=== PATIENT | male | born 1940 | race Caucasian/White ===

== ENCOUNTER 2020-12-10 09:31 | Outpatient (REF) | payer OTHER, SELFPAY ==
[2020-12-10 11:03] LABS: MANUAL DIFF FLAG NO
[2020-12-10 11:10] LABS: Basophils Absolute Auto 0.1 X10*3/uL (0.0-0.2); Basophils Percent Auto 0.7 % (0-2); Eosinophils Absolute Auto 0.4 X10*3/uL (0.0-0.4); Eosinophils Percent Auto 5.2 % (0-4); Hematocrit 42.2 % (42-52); Hemoglobin 13.4 g/dl (14.0-18.0); Imm Gran Abs Auto 0.04 X10*3/uL (0.00-0.03); Imm Gran Pct Auto 0.6 % (0.0-0.4); Lymphocytes Absolute Auto 1.9 X10*3/uL (1.2-4.9); Lymphocytes Percent Auto 26.7 % (20-40); Mean Corpuscular HGB Conc 31.8 g/dl (31.0-36.0); Mean Corpuscular Hemoglobin 31.2 pg (27.0-33.0); Mean Corpuscular Volume 98.4 fL (80-98); Mean Platelet Volume 9.9 fL (9.4-12.4); Monocytes Absolute Auto 0.5 X10*3/uL (0.1-1.2); Monocytes Percent Auto 6.6 % (2-11); Neutrophils Absolute Auto 4.2 X10*3/uL (2.0-8.3); Neutrophils Percent Auto 60.2 % (45-73); Platelet Count 286 X10*3/uL (160-400); Red Blood Count 4.29 X10*6/uL (4.60-5.80); Red Cell Distribution Width 13.8 % (11.0-16.0); White Blood Count 6.9 X10*3/uL (4.8-10.8)
[2020-12-10 11:36] LABS: Alanine Aminotransferase 13 U/L (0-40); Albumin Level 4.3 g/dL (3.5-5.0); Alkaline Phosphatase 121 U/L (39-117); Anion Gap 14 (12-20); Aspartate Amino Transferase 18 U/L (5-37); Bilirubin Total 0.6 mg/dL (0.0-1.0); Blood Urea Nitrogen 13 mg/dL (9-16); Calcium 9.1 mg/dL (8.4-10.2); Carbon Dioxide 31 mmol/L (22-29); Chloride 103 mmol/L (96-108); Cholesterol 180 mg/dL; Estimated Glomerular Filt Rate 56; Glucose Random 83 mg/dL (60-115); HDL Cholesterol 49 mg/dL; LDL Cholesterol Calculated 109 mg/dl; Potassium 4.5 mmol/L (3.3-5.1); Sodium 143 mmol/L (135-145); Total Protein 7.3 g/dL (6.5-8.0); Triglycerides 110 mg/dL
[2020-12-10 11:56] LABS: Thyroid Stimulating Hormone 3.07 uIU/mL (0.32-4.0)
[2020-12-10 12:00] LABS: Folate 6.7 ng/mL (> or = 4.0); Vitamin B12 362 pg/mL (200-900)
== END 2020-12-10 09:32 | disposition home or self-care (01) ==
LOC: HO.HMGCLDS 09:31
PROVIDERS: PCP Internal Medicine; Visit Provider Internal Medicine
DX: D51.3 Other dietary vitamin B12 deficiency anemia (principal); I10 Essential (primary) hypertension; E78.00 Pure hypercholesterolemia, unspecified
CPT/HCPCS: 36415; 80053; 80061; 82607; 82746; 84443; 85025

== ENCOUNTER 2022-01-29 13:37 | Outpatient (REF) | payer OTHER, SELFPAY ==
[2022-01-29 16:27] LABS: MANUAL DIFF FLAG NO
[2022-01-29 16:43] LABS: Basophils Absolute Auto 0.1 X10*3/uL (0.0-0.2); Basophils Percent Auto 0.7 % (0-2); Eosinophils Absolute Auto 0.2 X10*3/uL (0.0-0.4); Hematocrit 40.2 % (42.0-52.0); Hemoglobin 12.5 g/dl (14.0-18.0); Imm Gran Abs Auto 0.05 X10*3/uL (0.00-0.03); Imm Gran Pct Auto 0.7 % (0.0-0.4); Lymphocytes Absolute Auto 1.3 X10*3/uL (1.2-4.9); Lymphocytes Percent Auto 17.4 % (20-40); Mean Corpuscular HGB Conc 31.1 g/dl (31.0-36.0); Mean Corpuscular Hemoglobin 29.9 pg (27.0-33.0); Mean Corpuscular Volume 96.2 fL (80.0-98.0); Mean Platelet Volume 9.4 fL (9.4-12.4); Monocytes Absolute Auto 0.6 X10*3/uL (0.1-1.2); Monocytes Percent Auto 8.4 % (2-11); Neutrophils Absolute Auto 5.3 x10*3/uL (2.0-8.3); Neutrophils Percent Auto 70.8 % (45-73); Platelet Count 292 X10*3/uL (160-400); Red Blood Count 4.18 X10*6/uL (4.60-5.80); Red Cell Distribution Width 14.1 % (11.0-16.0); Retic HGB Equivalent 35.1 pg (30.0-35.0); Reticulocyte Percent 1.5 % (0.5-1.8); Reticulocytes Absolute 0.062 X10*6/uL (0.026-0.095); White Blood Count 7.5 X10*3/uL (4.8-10.8)
[2022-01-29 17:07] LABS: Alanine Aminotransferase 12 U/L (0-40); Albumin Level 4.3 g/dL (3.5-5.0); Alkaline Phosphatase 122 U/L (39-117); Anion Gap 17 (12-20); Aspartate Amino Transferase 17 U/L (5-37); Bilirubin Total 0.4 mg/dL (0.0-1.0); Blood Urea Nitrogen 17 mg/dL (9-16); Calcium 9.1 mg/dL (8.4-10.2); Carbon Dioxide 25 mmol/L (22-29); Chloride 102 mmol/L (96-108); Cholesterol 168 mg/dL; Estimated Glomerular Filt Rate 45; Glucose Random 68 mg/dL (60-115); HDL Cholesterol 46 mg/dL; Iron 65 mcg/dL (45-160); LDL Cholesterol Calculated 97 mg/dl; Percent Iron Saturation 22 % (15-50); Potassium 4.4 mmol/L (3.3-5.1); Sodium 140 mmol/L (135-145); Total Iron Binding Capacity 299 mcg/dL (228-428); Total Protein 7.2 g/dL (6.5-8.0); Triglycerides 126 mg/dL; Unsaturated Iron Binding 234 ug/dL
[2022-01-29 17:28] LABS: Ferritin 50 ng/mL (20-250); Free T4 (Free Thyroxine) 0.98 ng/dL (0.71-1.85); Thyroid Stimulating Hormone 3.34 uIU/mL (0.32-4.0)
[2022-01-29 17:34] LABS: Folate 13.1 ng/mL (> or = 4.0); Vitamin B12 428 pg/mL (200-900)
== END 2022-01-29 13:38 | disposition home or self-care (01) ==
LOC: HO.HMGCLDS 13:37
PROVIDERS: PCP Internal Medicine; Visit Provider Internal Medicine
DX: D51.3 Other dietary vitamin B12 deficiency anemia (principal); E78.00 Pure hypercholesterolemia, unspecified
CPT/HCPCS: 36415; 80053; 80061; 82607; 82728; 82746; 83540; 84439; 84443; 85025; 85045

== ENCOUNTER 2022-02-03 12:26 | Outpatient (RCR) | payer OTHER, SELFPAY ==
--- NOTE | ~2022-02-03 | XR_ITS ---
EXAMINATION: XR FOOT, RIGHT CLINICAL INFORMATION: Nonhealing wound at the 5th metatarsal head. Question osteomyelitis. COMPARISON: None TECHNIQUE: AP, lateral, and oblique views of the right foot. FINDINGS: Soft tissue wound and swelling overlying the lateral aspect of the 5th metatarsal head, consistent with cellulitis. There is adjacent osseous erosion at the lateral aspect of the 5th metatarsal head measuring up to 5 cm in AP dimension and concerning for acute osteomyelitis. No acute fracture or dislocation. Joint space narrowing with marginal osteophytes throughout the dorsal midfoot. Tiny plantar and dorsal calcaneal spurs. XR/XR foot RT min 3V IMPRESSION: Soft tissue wound and swelling overlying the 5th metatarsal head consistent with cellulitis. Underlying osseous erosion at the lateral aspect of the 5th metatarsal head consistent with acute osteomyelitis.
[2022-02-03 15:53] LABS: C Reactive Protein 0.34 mg/dL (< or = 0.50)
[2022-02-03 16:04] LABS: Erythrocyte Sedimentation Rate 54 MM/HR (0-15)
== END 2022-04-18 10:46 | disposition home or self-care (01) ==
LOC: HO.WCC 12:26
PROVIDERS: Absent Provider Surgery; PCP Internal Medicine; Visit Provider Physician Assistant
DX: L97.512 Non-pressure chronic ulcer of other part of right foot with fat layer exposed (principal); S91.302D Unspecified open wound, left foot, subsequent encounter; M86.271 Subacute osteomyelitis, right ankle and foot; D51.9 Vitamin B12 deficiency anemia, unspecified; J44.9 Chronic obstructive pulmonary disease, unspecified; F03.90 Unspecified dementia, unspecified severity, without behavioral disturbance, psychotic disturbance, mood disturbance, and anxiety; Z87.891 Personal history of nicotine dependence; Z79.2 Long term (current) use of antibiotics; Z89.421 Acquired absence of other right toe(s)
CPT/HCPCS: 11042; 11044; 36415; 73630; 84134; 85652; 86140; 87071; 87073; 87076; 87077; 87147; 87185; 87186; 87205; 88304; 88311; 99212; 99213

== ENCOUNTER 2022-02-14 09:23 | Outpatient (REF) | payer OTHER, SELFPAY ==
[2022-02-14 12:01] LABS: Anion Gap 12 (12-20); Blood Urea Nitrogen 23 mg/dL (9-16); Calcium 10.1 mg/dL (8.4-10.2); Carbon Dioxide 32 mmol/L (22-29); Chloride 102 mmol/L (96-108); Estimated Glomerular Filt Rate > 60; Glucose Random 97 mg/dL (60-115); Potassium 5.1 mmol/L (3.3-5.1); Sodium 141 mmol/L (135-145)
== END 2022-02-14 09:24 | disposition home or self-care (01) ==
LOC: HO.HMGCLDS 09:23
PROVIDERS: Visit Provider Internal Medicine
DX: N28.9 Disorder of kidney and ureter, unspecified (principal)
CPT/HCPCS: 36415; 80048

== ENCOUNTER → 2022-02-17 14:33 | Outpatient (BNVA) | payer OTHER, SELFPAY | PROVIDERS: PCP Internal Medicine; Visit Provider Internal Medicine | DX: Z13.89 Encounter for screening for other disorder (principal) ==

== ENCOUNTER 2022-03-03 16:13 | Inpatient (IN) | payer OTHER, SELFPAY ==
--- NOTE | ~2022-03-03 | XR_ITS ---
EXAMINATION: XR FOOT, RIGHT CLINICAL INFORMATION: Draining wound COMPARISON: 02/03/2022 TECHNIQUE: AP, lateral, and oblique views of the right foot. FINDINGS: Soft tissue swelling and soft tissue gas in the region of the fifth MTP joint. There is associated lucency and erosive changes in the third metatarsal head similar to the prior study. Sequela of osteomyelitis would be suspected. No underlying fracture or dislocation. Mild degenerative changes seen elsewhere. Vascular calcification noted. XR/XR foot RT min 3V IMPRESSION: Soft tissue swelling and soft tissue gas in the region of the fifth MTP joint. There is associated erosive and lucent changes to the fifth metatarsal head. In the acute setting osteomyelitis would be suspected. The appearance however is similar to the prior study.
[2022-03-03 17:04] VITALS: BP 119/89; PULSE 105; RESP 20; TEMP 36.7; O2SAT 98; BMI 25.8
[2022-03-03 18:29] LABS: MANUAL DIFF FLAG NO
[2022-03-03 18:32] LABS: Basophils Percent Auto 0.3 % (0-2); Eosinophils Absolute Auto 0.2 X10*3/uL (0.0-0.4); Eosinophils Percent Auto 1.8 % (0-4); Hematocrit 38.5 % (42.0-52.0); Hemoglobin 12.4 g/dl (14.0-18.0); Imm Gran Abs Auto 0.05 X10*3/uL (0.00-0.03); Imm Gran Pct Auto 0.5 % (0.0-0.4); Lymphocytes Absolute Auto 1.2 X10*3/uL (1.2-4.9); Mean Corpuscular HGB Conc 32.2 g/dl (31.0-36.0); Mean Corpuscular Hemoglobin 30.1 pg (27.0-33.0); Mean Corpuscular Volume 93.4 fL (80.0-98.0); Monocytes Percent Auto 9.2 % (2-11); Neutrophils Absolute Auto 8.5 x10*3/uL (2.0-8.3); Neutrophils Percent Auto 77.2 % (45-73); Platelet Count 293 X10*3/uL (160-400); Red Blood Count 4.12 X10*6/uL (4.60-5.80); Red Cell Distribution Width 13.6 % (11.0-16.0)
[2022-03-03 18:48] LABS: Anion Gap 18 (12-20); Blood Urea Nitrogen 29 mg/dL (9-16); Calcium 9.6 mg/dL (8.4-10.2); Carbon Dioxide 26 mmol/L (22-29); Chloride 101 mmol/L (96-108); Creatinine Clr Calc Pharmacy 41.8; Estimated Glomerular Filt Rate 55; Glucose Random 104 mg/dL (60-115); Potassium 5.5 mmol/L (3.3-5.1); Sodium 139 mmol/L (135-145)
--- NOTE | 2022-03-03 19:36 | ED.SKABFB ---
HPI - Skin/Abscess/Foreign Bdy General Chief complaint: Wound/Laceration Stated complaint: Open wound on right foot Time Seen by Provider: 03/03/22 19:23 Source: patient and old records reviewed Mode of arrival: ambulatory Limitations: no limitations History of Present Illness complaint: abscess/boil and lesion Onset (ago): month(s) (few) Tetanus up to date: yes Location: R foot Severity: moderate Quality: constant Relieving factors: none Exacerbating factors: palpation Context: other (chronic foot ulcer [place] [facility] [place] [facility] - 02/25 MRSA S to doxy since purulence started to come out has been on doxy since then sent over from wound clinic today given redness swelling and more drainage) Associated symptoms: other (more drainage, foot is more red and swollen) Treatments prior to arrival: bandages and antibiotic Related Data Home Medications Medication Instructions Recorded Confirmed albuterol sulfate 90 mcg/actuation 2 puff INHALATION Q4H PRN 08/06/20 03/03/22 aerosol inhaler (ProAir HFA) cholecalciferol (vitamin D3) 1,250 1,250 mcg PO MO 08/06/20 03/03/22 mcg (50,000 unit) capsule loratadine 10 mg tablet 10 mg PO DAILY PRN 03/03/22 03/03/22 losartan 25 mg tablet 1 tab PO DAILY 03/03/22 03/03/22 Previous Rx's Medication Instructions Recorded budesonide-formoterol HFA 160 2 puff INHALATION Q12H #3 ea 06/06/21 mcg-4.5 mcg/actuation aerosol inhaler (Symbicort) atorvastatin 40 mg tablet 40 mg PO DAILY 90 Days #90 tab 08/13/21 tiotropium bromide 1.25 2 puff INHALATION DAILY #3 ea 08/13/21 mcg/actuation mist for inhalation (Spiriva Respimat) citalopram 10 mg tablet 10 mg PO DAILY #90 tab 11/27/21 doxycycline hyclate 100 mg capsule 100 mg PO BID 30 Days #60 cap 02/17/22 Allergies Allergy/AdvReac Type Severity Reaction Status Date / Time No Known Allergies Allergy Verified 03/03/22 15:53 Review of Systems Review of Systems: Constitutional : No Fever, No Chills ENT/Mouth : No sore throat, No Rhinorrhea Eyes: No Eye Pain, No Swelling, No Redness Cardiovascular : No Chest Pain, No SOB Respiratory : No Cough, No Sputum Gastrointestinal : No Nausea, No Vomiting, No Diarrhea, No abdominal Pain Genitourinary : No Dysuria, No Hematuria Musculoskeletal : No joint pain, No Myalgias, No Joint Swelling Skin : pos Skin Lesions, positive skin rash Neuro : No Weakness, No Numbness, No Headache Psych : No Anxiety, No Depression Heme/Lymph: No Bruising, No Bleeding,No Lymphadenopathy Endocrine : No Polyuria, No Polydipsia All other systems reviewed and are negative [facility] [place] Past Medical History Attestation statement: The following information was validated with the patient. Medical History Anemia COPD (chronic obstructive pulmonary disease) Hypercholesterolemia Hypertension Insomnia Osteomyelitis Vitamin B12 deficiency Surgical History History of cataract surgery History of open reduction and internal fixation (ORIF) procedure Family History Family History Father Cancer Mother Cancer Social History Social History Housing: Apartment Alcohol intake: never Patient Tobacco Use Status: Former Tobacco user Tobacco use type: Cigarette e-Cigarette/Vaping Use: Never Used Second Hand Smoke Exposure: No Advance Directives: No service: No Current occupational status: retired Cognitive needs: No Hearing needs: No Vision needs: No Physical Exam Vital Signs: Vital Signs: Last Vital Signs Temp 98.0 F 03/03/22 17:04 Pulse 97 03/03/22 19:44 Resp 16 03/03/22 19:44 BP 119/89 03/03/22 17:04 Pulse Ox 95 03/03/22 19:44 BMI result Body Mass Index 25.8 Appearance: Alert. Oriented X3. No acute distress. Eyes: Pupils equal, round and reactive to light. ENT: Pharynx normal. Neck: Normal inspection. Neck supple. CVS: Normal heart rate and rhythm. Pulses normal. Respiratory: No respiratory distress. Breath sounds normal. Abdomen: Soft and nontender. Skin: Skin warm and dry. Normal skin color. Normal skin turgor. Extremities: No lower extremity edema. R foot warm to touch but erythematous and swollen on dorsum of foot - 2+ DP pulse felt, R lateral aspect of foot there is s draining ulcer with yellow purulent exudate noted. Neuro: Oriented X 3. No motor deficit. No sensory deficit. MDM - Skin/Abscess/Foreign Bdy MDM Narrative Medical decision making narrative: 82 yo male with hx of chronic R foot ulcer, HTN, HLD, anxiety, osteomyelitis on doxycycline following wound culture staph and strep on 5/3 S to doxy. Foot is more red and swollen with drainage noted. Sent over from wound clinic given increase in symptoms despite oral antibiotics. Plan to obtain labs, xray and IV antibiotics. Lab Data Result diagrams: 03/03/22 18:23 03/03/22 18:23 Labs: Lab Results 03/03/22 03/03/22 03/03/22 Range/Units 18:23 18:23 20:18 WBC 11.0 H (4.8-10.8) X10*3/uL RBC 4.12 L (4.60-5.80) X10*6/uL Hgb 12.4 L (14.0-18.0) g/dl Hct 38.5 L (42.0-52.0) % MCV 93.4 (80.0-98.0) fL MCH 30.1 (27.0-33.0) pg MCHC 32.2 (31.0-36.0) g/dl RDW 13.6 (11.0-16.0) % Plt Count 293 (160-400) X10*3/uL MPV 9.0 L (9.4-12.4) fL Immature Gran % (Auto) 0.5 H (0.0-0.4) % Neut % (Auto) 77.2 H (45-73) % Lymph % (Auto) 11.0 L (20-40) % [place] % (Auto) 9.2 (2-11) % Eos % (Auto) 1.8 (0-4) % Baso % (Auto) 0.3 (0-2) % Lymph # (Auto) 1.2 (1.2-4.9) X10*3/uL [place] # (Auto) 1.0 (0.1-1.2) X10*3/uL Eos # (Auto) 0.2 (0.0-0.4) X10*3/uL Baso # (Auto) 0.0 (0.0-0.2) X10*3/uL Abs Immat Gran (auto) 0.05 H (0.00-0.03) X10*3/uL Absolute Neuts (auto) 8.5 H (2.0-8.3) x10*3/uL Absolute Nucleated RBC 0.000 (0.0-0.012) X10*3/uL Nucleated RBC % (auto) 0.0 (0.0-0.2) /100WBC Sodium 139 (135-145) mmol/L Potassium 5.5 H (3.3-5.1) mmol/L Chloride 101 (96-108) mmol/L Carbon Dioxide 26 (22-29) mmol/L Anion Gap 18 (12-20) BUN 29 H (9-16) mg/dL Creatinine 1.27 (0.5-1.4) mg/dL Estim Creat Clear Calc 41.8 Estimated GFR 55 Random Glucose 104 (60-115) mg/dL Lactic Acid 1.0 (0.5-2.0) mmol/L Calcium 9.6 (8.4-10.2) mg/dL C-Reactive Protein (< or = 0.50) mg/dL 03/03/22 Range/Units 20:18 WBC (4.8-10.8) X10*3/uL RBC (4.60-5.80) X10*6/uL Hgb (14.0-18.0) g/dl Hct (42.0-52.0) % MCV (80.0-98.0) fL MCH (27.0-33.0) pg MCHC (31.0-36.0) g/dl RDW (11.0-16.0) % Plt Count (160-400) X10*3/uL MPV (9.4-12.4) fL Immature Gran % (Auto) (0.0-0.4) % Neut % (Auto) (45-73) % Lymph % (Auto) (20-40) % [place] % (Auto) (2-11) % Eos % (Auto) (0-4) % Baso % (Auto) (0-2) % Lymph # (Auto) (1.2-4.9) X10*3/uL [place] # (Auto) (0.1-1.2) X10*3/uL Eos # (Auto) (0.0-0.4) X10*3/uL Baso # (Auto) (0.0-0.2) X10*3/uL Abs Immat Gran (auto) (0.00-0.03) X10*3/uL Absolute Neuts (auto) (2.0-8.3) x10*3/uL Absolute Nucleated RBC (0.0-0.012) X10*3/uL Nucleated RBC % (auto) (0.0-0.2) /100WBC Sodium (135-145) mmol/L Potassium (3.3-5.1) mmol/L Chloride (96-108) mmol/L Carbon Dioxide (22-29) mmol/L Anion Gap (12-20) BUN (9-16) mg/dL Creatinine (0.5-1.4) mg/dL Estim Creat Clear Calc Estimated GFR Random Glucose (60-115) mg/dL Lactic Acid (0.5-2.0) mmol/L Calcium (8.4-10.2) mg/dL C-Reactive Protein 20.19 H (< or = 0.50) mg/dL Discharge Plan Discharge Clinical Impression: Cellulitis, Foot ulcer, right, Leukocytosis, CRP elevated Patient Disposition: Admitted As Inpatient
[2022-03-03 19:44] VITALS: PULSE 97; RESP 16; O2SAT 95
[2022-03-03 19:45] VITALS: BP 133/63
--- NOTE | 2022-03-03 19:49 | PC.NURSE ---
pt referred to Er from wound clinic, has had a lateral rt foot wound on the sole of his foot measuring 0.5x0.6x0.6cm. denies pain at site, purulent drainage present. cream/ brownish- red discharge, has been treating wound at home with silver alginate. pt able to stand and pivot steadily upon entering room in wheelchair. comes with a post op shoe and wound wrapped in kerlex . at bedside
[2022-03-03] MEDS: Piperacillin Sodium/Tazobactam 3.375 GM in 0.9 % Sodium Chloride 50 ML IV (20:30)
--- NOTE | 2022-03-03 20:40 | PHA.MEDREC ---
Pharmacy Consult ? Medication Reconciliation Pharmacy has completed the medication reconciliation. Pt's at bedside, confirmed medication list.
[2022-03-03 20:47] LABS: C Reactive Protein 20.19 mg/dL (< or = 0.50)
[2022-03-03 20:51] LABS: COVID-19 Test Negative (Negative)
[2022-03-03 21:00] LABS: Erythrocyte Sedimentation Rate 86 MM/HR (0-15)
[2022-03-03] MEDS: vancomycin HCL 750 MG in 0.9 % Sodium Chloride 250 ML 265 MG IV (21:00)
[2022-03-03 21:01] VITALS: BP 121/68; PULSE 93; RESP 15; O2SAT 97
--- NOTE | 2022-03-03 22:40 | PC.NURSE ---
pt given a sandwich, su bell and crackers per request
[2022-03-03 23:15] VITALS: BP 106/53; PULSE 92; RESP 16; O2SAT 94
--- NOTE | 2022-03-03 23:30 | PC.NURSE ---
pt resting in bed watching tv, adament that he does not want to change into a bucky. pt denies any pain.
--- NOTE | 2022-03-03 23:52 | PM.IMHP ---
History of Present Illness Date of Service: 03/03/22 Chief Complaint: foot ulcer pain 82-year-old male with a past medical history of hypertension, hyperlipidemia, COPD, anemia, osteomyelitis, vitamin B12 deficiency, history of chronic foot ulcer presented to the hospital with a chief complaint of pus draining from the foot ulcer. Patient reports that he has been having this foot ulcer for many weeks; has been following with the wound clinic and was on antibiotics as outpatient. Over the past few days he noted to have pus draining; mentions he saw his 40 arteries to surgery will go to the ER for further evaluation. Patient denies any fever chills cough. Denies any chest pain or palpitations. Denies any GI symptoms. Patient reports that she has increased erythema around the ulcer site; denies any tenderness. Review of all other systems is negative except mentioned above ER course: Per ER team patient noted of was trying from the ulcer; x-ray showed findings concerning for osteomyelitis and also noted to have cast -attributed to the open ulcer; given antibiotics; admitted to the hospital for further management. [facility] Medical History Anemia COPD (chronic obstructive pulmonary disease) Hypercholesterolemia Hypertension Insomnia Osteomyelitis Vitamin B12 deficiency Family History Father Cancer Mother Cancer Surgical History History of cataract surgery History of open reduction and internal fixation (ORIF) procedure Social History Housing: Apartment Alcohol intake: never Patient Tobacco Use Status: Former Tobacco user Tobacco use type: Cigarette e-Cigarette/Vaping Use: Never Used Second Hand Smoke Exposure: No Advance Directives: No service: No Current occupational status: retired Cognitive needs: No Hearing needs: No Vision needs: No Meds Allergies Allergy/AdvReac Type Severity Reaction Status Date / Time No Known Allergies Allergy Verified 03/03/22 15:53 Active Medications: Current Medications Acetaminophen (Acetaminophen 325 Mg Tablet) 650 mg PO Q6H PRN PRN Reason: Pain, Mild (Pain Scale 1-3) Albuterol Sulfate (Albuterol Sulfate 90 Mcg 8 Gm Inhaler) 2 puff INHALE Q4H PRN PRN Reason: Shortness Of Breath Albuterol/Ipratropium (Albuterol/Iprat 2.5/0.5mg 3 Ml Ampul.Neb) 3 ml INHALE RQ4H PRN PRN Reason: Shortness of Breath/Wheezing Atorvastatin Calcium (Atorvastatin Calcium 40 Mg Tablet) 40 mg PO DAILY [facility] Enoxaparin Sodium (Enoxaparin Sodium 40 Mg/0.4 Ml Syringe) 40 mg SUBCUT Q24H [facility] Vancomycin HCl 1,000 mg/ (Sodium Chloride) 270 mls @ 270 mls/hr IV Q12H [facility] Piperacillin Sod/Tazobactam (Sod 3.375 gm/ Sodium Chloride) 50 mls @ 100 mls/hr IV Q6H [facility] Loratadine (Loratadine 10 Mg Tablet) 10 mg PO DAILY PRN PRN Reason: Allergy Symptoms Losartan Potassium (Losartan Potassium 25 Mg Tablet) 25 mg PO DAILY JED; Protocol Melatonin (Melatonin 3 Mg Tablet) 6 mg PO BEDTIME PRN PRN Reason: Insomnia Non-Formulary Medication (Budesonide-Formoterol [Symbicort]) 2 puff INHALE Q12H [facility] Non-Formulary Medication (Cholecalciferol (Vitamin D3)) 1,250 mcg PO MO [facility] Non-Formulary Medication (Citalopram) 10 mg PO DAILY [facility] Non-Formulary Medication (Tiotropium [place] [Spiriva Respimat]) 2 puff INHALE DAILY [facility] Pharmacy Consult (Consult Rx Perform Med Rec) 1 each MISCELLANE ONCE PRN PRN Reason: Consult order Pharmacy Consult (Consult Rx Vancomycin Dosing) 1 each MISCELLANE DAILY PRN PRN Reason: Consult order Senna (Sennosides 8.6 Mg Tablet) 17.2 mg PO BEDTIME PRN PRN Reason: Constipation Sodium Chloride (0.9 % Sodium Chloride Flush 3 Ml Syringe) 3 ml IVFLUSH QSHIFT [facility] Sodium Zirconium Cyclosilicate (Sodium Zirconium Cyclosilicate 10 Gm Powd.Pack) 10 gm PO ONCE ONE Stop: 03/03/22 23:50 Home Medications Medication Instructions Recorded Confirmed Last Taken Type albuterol sulfate 90 mcg/actuation 2 puff INHALATION Q4H PRN 08/06/20 03/03/22 Unknown History aerosol inhaler (ProAir HFA) cholecalciferol (vitamin D3) 1,250 1,250 mcg PO MO 08/06/20 03/03/22 02/24/22 History mcg (50,000 unit) capsule loratadine 10 mg tablet 10 mg PO DAILY PRN 03/03/22 03/03/22 Unknown History losartan 25 mg tablet 1 tab PO DAILY 03/03/22 03/03/22 03/02/22 History Physical Exam Vital Signs and Narrative: Vital Signs: Last Vital Signs Temp 98.0 F 03/03/22 17:04 Pulse 92 03/03/22 23:15 Resp 16 03/03/22 23:15 BP 106/53 L 03/03/22 23:15 Pulse Ox 94 03/03/22 23:15 BMI result Body Mass Index 25.8 Gen: Appears be in no acute distress HEENT: NCAT, Moist mucosa. Pulmonary: Vesicular breath sounds, fair air entry CVS: Normal S1-S2 Abdomen: BS+, Soft, Nontender ; Extremities: Warm well perfused; right foot plantar surface noted to have ulcer with pus draining; mild erythema surrounding. Pictures as shown below Neuro: Alert and awake. Results Labs CBC and Chem 7: 03/04/22 04:28 03/04/22 04:28 Labs: Laboratory Results - last 24 hr 03/03/22 03/03/22 03/03/22 18:23 18:23 20:18 MCV 93.4 MCH 30.1 MCHC 32.2 RDW 13.6 Plt Count 293 MPV 9.0 L Immature Gran % (Auto) 0.5 H Neut % (Auto) 77.2 H Lymph % (Auto) 11.0 L [place] % (Auto) 9.2 Eos % (Auto) 1.8 Baso % (Auto) 0.3 Lymph # (Auto) 1.2 [place] # (Auto) 1.0 Eos # (Auto) 0.2 Baso # (Auto) 0.0 Abs Immat Gran (auto) 0.05 H Absolute Neuts (auto) 8.5 H Absolute Nucleated RBC 0.000 Nucleated RBC % (auto) 0.0 ESR 86 H Anion Gap 18 Estim Creat Clear Calc 41.8 Estimated GFR 55 Random Glucose 104 Lactic Acid Calcium 9.6 C-Reactive Protein COVID-19 (ROBY) COVID-19 Clin Com 03/03/22 03/03/22 03/03/22 20:18 20:18 20:18 MCV MCH MCHC RDW Plt Count MPV Immature Gran % (Auto) Neut % (Auto) Lymph % (Auto) [place] % (Auto) Eos % (Auto) Baso % (Auto) Lymph # (Auto) [place] # (Auto) Eos # (Auto) Baso # (Auto) Abs Immat Gran (auto) Absolute Neuts (auto) Absolute Nucleated RBC Nucleated RBC % (auto) ESR Anion Gap Estim Creat Clear Calc Estimated GFR Random Glucose Lactic Acid 1.0 Calcium C-Reactive Protein 20.19 H COVID-19 (ROBY) Negative COVID-19 Clin Com See Note Imaging Radiologist's Impressions: Impressions Foot X-Ray 03/03/22 19:57 IMPRESSION: Soft tissue swelling and soft tissue gas in the region of the fifth MTP joint. There is associated erosive and lucent changes to the fifth metatarsal head. In the acute setting osteomyelitis would be suspected. The appearance however is similar to the prior study. Assessment and Plan (1) Cellulitis: Qualifiers: Laterality: right Site of cellulitis: extremity Site of cellulitis of extremity: lower extremity Qualified Code(s): L03.115 - Cellulitis of right lower limb Status: Acute Plan 82-year-old male with a past medical history of hypertension, hyperlipidemia, COPD, anemia, osteomyelitis, vitamin B12 deficiency, history of chronic foot ulcer presented to the hospital with a chief complaint of pus draining from the foot ulcer. Foot ulcer/ cellulitis/ Osteomyelitis: Continue IV vancomycin and Zosyn Id consult X-ray showed soft tissue gas and soft tissue swelling in the 5th MTP joint. Likely in the setting of open ulcer. Also noted lucent changes in the metatarsal head -suspected osteomyelitis. Will consult General surgery history of COPD: Stable History hypertension: Continue home losartan DVT prophylaxis: Lovenox Code status: Full code Quality Stroke Does the patient have a stroke diagnosis?: No VTE Prior VTE?: No VTE Risk Level:: Medical - moderate - high VTE Device Contraindication: Treatment Not Indicated VTE Drug Contraindication: N/A - Med Ordered
[2022-03-04] VITALS (8 sets, daily range): BP systolic 101–119; BP diastolic 47–58; PULSE 61–80; RESP 12–18; TEMP 35.8–36.8; O2SAT 96–100
[2022-03-04] MEDS: Melatonin 3 MG TABLET 6 MG PO (00:51)
[2022-03-04] MEDS: Enoxaparin Sodium 40 MG/0.4 ML SYRINGE SUBCUT (00:51)
[2022-03-04] MEDS: Sodium Zirconium Cyclosilicate 10 GM POWD.PACK PO (00:51)
[2022-03-04] MEDS: 0.9 % Sodium Chloride Flush 3 ML SYRINGE IVFLUSH ×2 (00:54→15:49)
--- NOTE | 2022-03-04 01:11 | PC.NURSE ---
rt foot wound cleansed with NS, 2x2 applied and covered with derrick.
[2022-03-04] MEDS: Piperacillin Sodium/Tazobactam 3.375 GM in 0.9 % Sodium Chloride 50 ML IV ×4 (02:49→19:41)
--- NOTE | 2022-03-04 02:57 | PC.NURSE ---
pt willing to change his upper half and put on a bucky, pt still refusing to remove his pants, states he has money and does not trust us with it. pt reassured we can keep it safe and count it with him, although pt still resistive/refusing to get fully changed.
[2022-03-04 05:06] LABS: MANUAL DIFF FLAG NO
[2022-03-04 05:07] LABS: Basophils Percent Auto 0.4 % (0-2); Eosinophils Absolute Auto 0.4 X10*3/uL (0.0-0.4); Eosinophils Percent Auto 4.1 % (0-4); Hematocrit 33.9 % (42.0-52.0); Hemoglobin 10.7 g/dl (14.0-18.0); Imm Gran Abs Auto 0.02 X10*3/uL (0.00-0.03); Imm Gran Pct Auto 0.2 % (0.0-0.4); Lymphocytes Absolute Auto 1.5 X10*3/uL (1.2-4.9); Lymphocytes Percent Auto 17.3 % (20-40); Mean Corpuscular HGB Conc 31.6 g/dl (31.0-36.0); Mean Corpuscular Hemoglobin 29.8 pg (27.0-33.0); Mean Corpuscular Volume 94.4 fL (80.0-98.0); Mean Platelet Volume 9.4 fL (9.4-12.4); Monocytes Percent Auto 11.8 % (2-11); Neutrophils Absolute Auto 5.7 x10*3/uL (2.0-8.3); Neutrophils Percent Auto 66.2 % (45-73); Platelet Count 279 X10*3/uL (160-400); Red Blood Count 3.59 X10*6/uL (4.60-5.80); Red Cell Distribution Width 13.8 % (11.0-16.0); White Blood Count 8.6 X10*3/uL (4.8-10.8)
[2022-03-04 05:31] LABS: Anion Gap 13 (12-20); Blood Urea Nitrogen 28 mg/dL (9-16); Carbon Dioxide 28 mmol/L (22-29); Chloride 102 mmol/L (96-108); Creatinine Clr Calc Pharmacy 46.6; Estimated Glomerular Filt Rate > 60; Glucose Random 106 mg/dL (60-115); Potassium 4.5 mmol/L (3.3-5.1); Sodium 138 mmol/L (135-145)
[2022-03-04] MEDS: vancomycin HCL 1,250 MG in 0.9 % Sodium Chloride 250 ML 166.67 MG IV (08:28)
--- NOTE | 2022-03-04 08:43 | PM.CNGS ---
History of Present Illness Consult details Consult date: 03/04/22 Narrative: 82-year-old male referred for right foot ulcer. [facility] the this ulcer on the right foot medially. He says that he has had this for months . He had been seeing some purulent drainage from the area the past few days. He therefore was sent to the emergency room. He denies any fever or chills at home. He is not a diabetic. He denies any trauma to the area in the past. Review of Systems Constitutional: Constitutional: Denies chills and Denies fever(s) Cardiovascular: Cardiovascular: Denies chest pain, Reports dyspnea and Reports dyspnea on exertion Respiratory: Respiratory: Denies cough, Reports dyspnea and Reports dyspnea on exertion Gastrointestinal: Gastrointestinal: Denies hematochezia and Denies change in bowel habits Genitourinary: Genitourinary: Denies hematuria and Denies difficulty urinating Musculoskeletal: Musculoskeletal: Denies back pain and Denies limited range of motion Neurologic: Denies focal weakness and Denies convulsions Psychiatric: Psychiatric: Denies depression and Denies mood swings PMFSH Past Medical History Medical History Anemia COPD (chronic obstructive pulmonary disease) Hypercholesterolemia Hypertension Insomnia Osteomyelitis Vitamin B12 deficiency Family History Family History Father Cancer Mother Cancer Surgical History Surgical History History of cataract surgery History of open reduction and internal fixation (ORIF) procedure Social History Social History Household Members: Spouse Housing: House Alcohol intake: never Patient Tobacco Use Status: Former Tobacco user Tobacco use type: Cigarette e-Cigarette/Vaping Use: Never Used Second Hand Smoke Exposure: No service: No Current occupational status: retired Cognitive needs: No Hearing needs: No Vision needs: No Meds Allergies Allergy/AdvReac Type Severity Reaction Status Date / Time No Known Allergies Allergy Verified 03/03/22 15:53 Active Medications: Current Medications Acetaminophen (Acetaminophen 325 Mg Tablet) 650 mg PO Q6H PRN PRN Reason: Pain, Mild (Pain Scale 1-3) Albuterol Sulfate (Albuterol Sulfate 90 Mcg 8 Gm Inhaler) 2 puff INHALE Q4H PRN PRN Reason: Shortness Of Breath Albuterol/Ipratropium (Albuterol/Iprat 2.5/0.5mg 3 Ml Ampul.Neb) 3 ml INHALE RQ4H PRN PRN Reason: Shortness of Breath/Wheezing Atorvastatin Calcium (Atorvastatin Calcium 40 Mg Tablet) 40 mg PO DAILY [facility] Enoxaparin Sodium (Enoxaparin Sodium 40 Mg/0.4 Ml Syringe) 40 mg SUBCUT Q24H [facility] Last Admin: 03/04/22 00:51 Dose: 40 mg Documented by: Escitalopram Oxalate (Escitalopram Oxalate 5 Mg Tablet) 5 mg PO DAILY [facility] Fluticasone/Vilanterol (Fluticasone/Vilanterol 200/25 Blst.W.Dev) 1 puff INHALE RDAILY [facility] Last Admin: 03/04/22 08:39 Dose: Not Given Documented by: Piperacillin Sod/Tazobactam (Sod 3.375 gm/ Sodium Chloride) 50 mls @ 100 mls/hr IV Q6H [facility] Last Admin: 03/04/22 02:49 Dose: 100 mls/hr Documented by: Vancomycin HCl 1,250 mg/ (Sodium Chloride) 250 mls @ 166.667 mls/hr IV Q24H [facility] Last Admin: 03/04/22 08:28 Dose: 166.67 mls/hr Documented by: Loratadine (Loratadine 10 Mg Tablet) 10 mg PO DAILY PRN PRN Reason: Allergy Symptoms Losartan Potassium (Losartan Potassium 25 Mg Tablet) 25 mg PO DAILY [facility]; Protocol Melatonin (Melatonin 3 Mg Tablet) 6 mg PO BEDTIME PRN PRN Reason: Insomnia Last Admin: 03/04/22 00:51 Dose: 6 mg Documented by: Non-Formulary Medication (Cholecalciferol (Vitamin D3)) 1,250 mcg PO MO [facility] Pharmacy Consult (Consult Rx Perform Med Rec) 1 each MISCELLANE ONCE PRN PRN Reason: Consult order Pharmacy Consult (Consult Rx Vancomycin Dosing) 1 each MISCELLANE DAILY PRN PRN Reason: Consult order Senna (Sennosides 8.6 Mg Tablet) 17.2 mg PO BEDTIME PRN PRN Reason: Constipation Sodium Chloride (0.9 % Sodium Chloride Flush 3 Ml Syringe) 3 ml IVFLUSH QSHIFT [facility] Last Admin: 03/04/22 00:54 Dose: 3 ml Documented by: Tiotropium [place] (Tiotropium [place] 18 Mcg Cap.W.Dev) 1 puff INHALE RDAILY [facility] Last Admin: 03/04/22 08:39 Dose: Not Given Documented by: Home Medications Medication Instructions Recorded Confirmed Last Taken Type albuterol sulfate 90 mcg/actuation 2 puff INHALATION Q4H PRN 08/06/20 03/03/22 Unknown History aerosol inhaler (ProAir HFA) cholecalciferol (vitamin D3) 1,250 1,250 mcg PO MO 08/06/20 03/03/22 02/24/22 History mcg (50,000 unit) capsule loratadine 10 mg tablet 10 mg PO DAILY PRN 03/03/22 03/03/22 Unknown History losartan 25 mg tablet 1 tab PO DAILY 03/03/22 03/03/22 03/02/22 History Physical Exam Vital Signs: Vital Signs: Last Vital Signs Temp 97.7 F 03/04/22 05:12 Pulse 63 03/04/22 07:11 Resp 12 03/04/22 07:11 BP 112/58 L 03/04/22 07:11 Pulse Ox 100 03/04/22 07:11 BMI result Body Mass Index 25.8 Const: General: comfortable and no acute distress Orientation/consciousness: patient oriented x3 Neck: Neck: Yes no lymphadenopathy Resp: Auscultation: clear to auscultation bilaterally Cardio: Rhythm: regular rhythm GI: Palpation (GI): Soft to palpation, nontender and no guarding Neuro: General: patient oriented x3 Extrem: Other: Right foot ulcer at the area of the 1st metatarsophalangeal diet, with open wound that seems to extend into the soft tissue, surrounding edema and cellulitic changes; open wound about 1 cm in diameter, no crepitus Results Labs Result diagrams: 03/05/22 07:24 03/06/22 05:33 Labs: Abnormal lab results 03/03/22 03/03/22 03/03/22 Range/Units 18:23 18:23 20:18 WBC 11.0 H (4.8-10.8) X10*3/uL RBC 4.12 L (4.60-5.80) X10*6/uL Hgb 12.4 L (14.0-18.0) g/dl Hct 38.5 L (42.0-52.0) % MPV 9.0 L (9.4-12.4) fL Immature Gran % (Auto) 0.5 H (0.0-0.4) % Neut % (Auto) 77.2 H (45-73) % Lymph % (Auto) 11.0 L (20-40) % [place] % (Auto) (2-11) % Eos % (Auto) (0-4) % Abs Immat Gran (auto) 0.05 H (0.00-0.03) X10*3/uL Absolute Neuts (auto) 8.5 H (2.0-8.3) x10*3/uL ESR 86 H (0-15) MM/HR Potassium 5.5 H (3.3-5.1) mmol/L BUN 29 H (9-16) mg/dL C-Reactive Protein (< or = 0.50) mg/dL 03/03/22 03/04/22 03/04/22 Range/Units 20:18 04:28 04:28 WBC (4.8-10.8) X10*3/uL RBC 3.59 L (4.60-5.80) X10*6/uL Hgb 10.7 L (14.0-18.0) g/dl Hct 33.9 L (42.0-52.0) % MPV (9.4-12.4) fL Immature Gran % (Auto) (0.0-0.4) % Neut % (Auto) (45-73) % Lymph % (Auto) 17.3 L (20-40) % [place] % (Auto) 11.8 H (2-11) % Eos % (Auto) 4.1 H (0-4) % Abs Immat Gran (auto) (0.00-0.03) X10*3/uL Absolute Neuts (auto) (2.0-8.3) x10*3/uL ESR (0-15) MM/HR Potassium (3.3-5.1) mmol/L BUN 28 H (9-16) mg/dL C-Reactive Protein 20.19 H (< or = 0.50) mg/dL Short CBC 03/03/22 03/04/22 Range/Units 18:23 04:28 WBC 11.0 H 8.6 (4.8-10.8) X10*3/uL Hgb 12.4 L 10.7 L (14.0-18.0) g/dl Hct 38.5 L 33.9 L (42.0-52.0) % Plt Count 293 279 (160-400) X10*3/uL BMP 03/03/22 03/04/22 18:23 04:28 Sodium 139 138 Potassium 5.5 H 4.5 Chloride 101 102 Carbon Dioxide 26 28 BUN 29 H 28 H Creatinine 1.27 1.14 Calcium 9.6 9.0 D All other labs normal. Imaging Additional studies: Laboratory Results WBC 8.6 X10*3/uL (4.8-10.8) 03/04/22 04:28 RBC 3.59 X10*6/uL (4.60-5.80) L 03/04/22 04:28 Hgb 10.7 g/dl (14.0-18.0) L 03/04/22 04:28 Hct 33.9 % (42.0-52.0) L 03/04/22 04:28 MCV 94.4 fL (80.0-98.0) 03/04/22 04:28 MCH 29.8 pg (27.0-33.0) 03/04/22 04:28 MCHC 31.6 g/dl (31.0-36.0) 03/04/22 04:28 RDW 13.8 % (11.0-16.0) 03/04/22 04:28 Plt Count 279 X10*3/uL (160-400) 03/04/22 04:28 MPV 9.4 fL (9.4-12.4) 03/04/22 04:28 Immature Gran % (Auto) 0.2 % (0.0-0.4) 03/04/22 04:28 Neut % (Auto) 66.2 % (45-73) 03/04/22 04:28 Lymph % (Auto) 17.3 % (20-40) L 03/04/22 04:28 [place]ney % (Auto) 11.8 % (2-11) H 03/04/22 04:28 Eos % (Auto) 4.1 % (0-4) H 03/04/22 04:28 Baso % (Auto) 0.4 % (0-2) 03/04/22 04:28 Lymph # (Auto) 1.5 X10*3/uL (1.2-4.9) 03/04/22 04:28 [place]ney # (Auto) 1.0 X10*3/uL (0.1-1.2) 03/04/22 04:28 Eos # (Auto) 0.4 X10*3/uL (0.0-0.4) 03/04/22 04:28 Baso # (Auto) 0.0 X10*3/uL (0.0-0.2) 03/04/22 04:28 Abs Immat Gran (auto) 0.02 X10*3/uL (0.00-0.03) 03/04/22 04:28 Absolute Neuts (auto) 5.7 x10*3/uL (2.0-8.3) 03/04/22 04:28 Absolute Nucleated RBC 0.000 X10*3/uL (0.0-0.012) 03/04/22 04:28 Nucleated RBC % (auto) 0.0 /100WBC (0.0-0.2) 03/04/22 04:28 ESR 86 MM/HR (0-15) H 03/03/22 20:18 Sodium 138 mmol/L (135-145) 03/04/22 04:28 Potassium 4.5 mmol/L (3.3-5.1) 03/04/22 04:28 Chloride 102 mmol/L (96-108) 03/04/22 04:28 Carbon Dioxide 28 mmol/L (22-29) 03/04/22 04:28 Anion Gap 13 (12-20) 03/04/22 04:28 BUN 28 mg/dL (9-16) H 03/04/22 04:28 Creatinine 1.14 mg/dL (0.5-1.4) 03/04/22 04:28 Estim Creat Clear Calc 46.6 03/04/22 04:28 Estimated GFR > 60 03/04/22 04:28 Random Glucose 106 mg/dL (60-115) 03/04/22 04:28 Lactic Acid 1.0 mmol/L (0.5-2.0) 03/03/22 20:18 Calcium 9.0 mg/dL (8.4-10.2) D 03/04/22 04:28 C-Reactive Protein 20.19 mg/dL (< or = 0.50) H 03/03/22 20:18 COVID-19 (ROBY) Negative (Negative) 03/03/22 20:18 COVID-19 Clin Com See Note 03/03/22 20:18 Impressions Foot X-Ray 03/03/22 19:57 IMPRESSION: Soft tissue swelling and soft tissue gas in the region of the fifth MTP joint. There is associated erosive and lucent changes to the fifth metatarsal head. In the acute setting osteomyelitis would be suspected. The appearance however is similar to the prior study. Assessment and Plan (1) Osteomyelitis: Status: Acute Plan He has a right foot ulcer with osteomyelitis of the distal metatarsal for the 1st big toe on x-ray. The gas seen on x-ray is secondary to the ulcer tracking deeper into the soft tissue and does not appear to represent a necrotizing process. He does not want to proceed with amputation at this time as says he is not mentally ready. He wants to continue with IV antibiotics. I will follow along while he is in the hospital for wound care. Otherwise appears to be hemodynamically stable and not septic. Procedures Date of Service Date of Service: 03/04/22
[2022-03-04] MEDS: Atorvastatin Calcium 40 MG TABLET PO (10:09)
[2022-03-04] MEDS: Losartan Potassium 25 MG TABLET PO (10:09)
[2022-03-04] MEDS: Escitalopram Oxalate 5 MG TABLET PO (10:09)
--- NOTE | 2022-03-04 10:36 | PHA.PROG ---
Admission Date/Time: March 03, 2022 23:46 Indication: Cellutilitis w/ suspect Osteomylitis Weight in k.575 kg Adjusted body weight in K.31 [place] body weight in Kg: Obesity Dosing Indication % IBW: Serum Creatinine - Last 168 Hours 03/03/22 03/04/22 18:23 04:28 Creatinine 1.27 1.14 Estimated CrCl and GFR - Last 168 Hours 03/03/22 03/04/22 18:23 04:28 Estim Creat Clear Calc 41.8 46.6 Estimated GFR 55 > 60 Vancomycin Loading Dose: N/A Current Vancomycin Dosing Regimen: 1250 mg Q24H Date and Time for next Vancomycin Level to be drawn:03/06/22 Pharmacist Comments on Vancomycin Plan: First dose given vancomycin 750 mg (10 mg/kg) in the ED, was not a optimal loading dose for patient. Will start maintenance dose vancomycin 1250 mg (17 mg/kg) Q24H in 12 hours to create a load dose for the patient. Expected AUC 522 with a trough with a 15.7 Trough to be drawn prior to 4th dose Pharmacy will monitor renal function daily Jolie Pedro, Natalya Vancomycin dosing will take advantage of [employer] as a clinical decision support tool that uses Bayesian modeling to calculate individual patient's pharmacokinetic parameters and forecast the patient's drug concentration time course with the target goal AUC 24 range of 400 - 600 mg/L/hr.
--- NOTE | 2022-03-04 10:51 | MHC.CM.PN ---
Met with patient in regards to discharge planning. Patient is hard of hearing. Patient lives with his , ambulates with a cane and had no services prior to coming to the hospital. PCP verified. Patient denies having a HCP. Information provided. Patient not interested in completing one at this time. Patient received 3 Pfizer vaccines. Patient's will transport him home when medically stable. Continue to monitor for d/c needs.
--- NOTE | 2022-03-04 11:29 | PC.NURSE ---
Wound to outer aspect of right foot dressed with a clean/dry dressing
--- NOTE | 2022-03-04 13:22 | P.PNIM_ITS ---
Subjective Subjective Date of Service: 03/04/22 Interval History: the patient was seen and evaluated this morning Laying in bed, feels comfortable with mild to no pain in his foot Denies any fever, chills or shortness of breath No reported other overnight events. Systemic review: No fever, chills or weakness No chest pain, palpitation No shortness of breath or coughing No abdominal pain, nausea or vomiting No urinary symptoms Open wound in his right foot Physical Exam Vital Signs: Vital Signs: Last Vital Signs Temp 96.5 F L 03/04/22 11:18 Pulse 61 03/04/22 11:18 Resp 18 03/04/22 11:18 BP 101/48 L 03/04/22 11:18 Pulse Ox 96 03/04/22 11:18 BMI result Body Mass Index 25.8 Const: Other: Constitutional : Alert, oriented, not in distress Neck : Normal inspection, Supple Cardiovascular : RRR, no JVP, no lower extremity edema Respiratory : fair bilateral air entry, no crackles, wheezes or rhonchi Gastrointestinal: soft, lax, Normal bowel sounds, Non tender Skin : Warm, Dry, Right 1st metatarsophalangeal ulcer with open wound with surrounding edema and cellulitis in the right foot;wound about 1x1 cm, no drainage noticed Neurological : Alert & oriented x3, No focal deficit , CN 2-12 within normal Objective Data Active Medications Acetaminophen (Acetaminophen 325 Mg Tablet) 650 mg PO Q6H PRN PRN Reason: Pain, Mild (Pain Scale 1-3) Albuterol Sulfate (Albuterol Sulfate 90 Mcg 8 Gm Inhaler) 2 puff INHALE Q4H PRN PRN Reason: Shortness Of Breath Albuterol/Ipratropium (Albuterol/Iprat 2.5/0.5mg 3 Ml Ampul.Neb) 3 ml INHALE RQ4H PRN PRN Reason: Shortness of Breath/Wheezing Atorvastatin Calcium (Atorvastatin Calcium 40 Mg Tablet) 40 mg PO DAILY [facility] Last Admin: 03/04/22 10:09 Dose: 40 mg Documented by: HUA Enoxaparin Sodium (Enoxaparin Sodium 40 Mg/0.4 Ml Syringe) 40 mg SUBCUT Q24H [facility] Last Admin: 03/04/22 00:51 Dose: 40 mg Documented by: OTONIEL Escitalopram Oxalate (Escitalopram Oxalate 5 Mg Tablet) 5 mg PO DAILY [facility] Last Admin: 03/04/22 10:09 Dose: 5 mg Documented by: HUA Fluticasone/Vilanterol (Fluticasone/Vilanterol 200/25 Blst.W.Dev) 1 puff INHALE RDAILY [facility] Last Admin: 03/04/22 08:39 Dose: Not Given Documented by: SUZANNE Non-Admin Reason: Med Not Available Piperacillin Sod/Tazobactam (Sod 3.375 gm/ Sodium Chloride) 50 mls @ 100 mls/hr IV Q6H [facility] Last Infusion: 03/04/22 11:30 Dose: 0 mls/hr Documented by: PREM Vancomycin HCl 1,250 mg/ (Sodium Chloride) 250 mls @ 166.667 mls/hr IV Q24H [facility] Last Infusion: 03/04/22 11:00 Dose: 0 mls/hr Documented by: PREM Loratadine (Loratadine 10 Mg Tablet) 10 mg PO DAILY PRN PRN Reason: Allergy Symptoms Losartan Potassium (Losartan Potassium 25 Mg Tablet) 25 mg PO DAILY [facility]; Protocol Last Admin: 03/04/22 10:09 Dose: 25 mg Documented by: HUA Melatonin (Melatonin 3 Mg Tablet) 6 mg PO BEDTIME PRN PRN Reason: Insomnia Last Admin: 03/04/22 00:51 Dose: 6 mg Documented by: OTONIEL Non-Formulary Medication (Cholecalciferol (Vitamin D3)) 1,250 mcg PO MO [facility] Pharmacy Consult (Consult Rx Perform Med Rec) 1 each MISCELLANE ONCE PRN PRN Reason: Consult order Pharmacy Consult (Consult Rx Vancomycin Dosing) 1 each MISCELLANE DAILY PRN PRN Reason: Consult order Senna (Sennosides 8.6 Mg Tablet) 17.2 mg PO BEDTIME PRN PRN Reason: Constipation Sodium Chloride (0.9 % Sodium Chloride Flush 3 Ml Syringe) 3 ml IVFLUSH QSHIFT [facility] Last Admin: 03/04/22 09:52 Dose: Not Given Documented by: HUA Non-Admin Reason: Med Not Available Tiotropium [place] (Tiotropium [place] 18 Mcg Cap.W.Dev) 1 puff INHALE RDAILY [facility] Last Admin: 03/04/22 08:39 Dose: Not Given Documented by: SUZANNE Non-Admin Reason: Med Not Available Labs CBC & Chem 7: 03/04/22 04:28 03/04/22 04:28 Labs: Laboratory Results - last 24 hr 03/03/22 03/03/22 03/03/22 18:23 18:23 20:18 MCV 93.4 MCH 30.1 MCHC 32.2 RDW 13.6 Plt Count 293 MPV 9.0 L Immature Gran % (Auto) 0.5 H Neut % (Auto) 77.2 H Lymph % (Auto) 11.0 L [place] % (Auto) 9.2 Eos % (Auto) 1.8 Baso % (Auto) 0.3 Lymph # (Auto) 1.2 [place] # (Auto) 1.0 Eos # (Auto) 0.2 Baso # (Auto) 0.0 Abs Immat Gran (auto) 0.05 H Absolute Neuts (auto) 8.5 H Absolute Nucleated RBC 0.000 Nucleated RBC % (auto) 0.0 ESR 86 H Anion Gap 18 Estim Creat Clear Calc 41.8 Estimated GFR 55 Random Glucose 104 Lactic Acid Calcium 9.6 C-Reactive Protein COVID-19 (ROBY) COVID-19 Clin Com 03/03/22 03/03/22 03/03/22 20:18 20:18 20:18 MCV MCH MCHC RDW Plt Count MPV Immature Gran % (Auto) Neut % (Auto) Lymph % (Auto) [place] % (Auto) Eos % (Auto) Baso % (Auto) Lymph # (Auto) [place] # (Auto) Eos # (Auto) Baso # (Auto) Abs Immat Gran (auto) Absolute Neuts (auto) Absolute Nucleated RBC Nucleated RBC % (auto) ESR Anion Gap Estim Creat Clear Calc Estimated GFR Random Glucose Lactic Acid 1.0 Calcium C-Reactive Protein 20.19 H COVID-19 (ROBY) Negative COVID-19 Clin Com See Note 03/04/22 03/04/22 04:28 04:28 MCV 94.4 MCH 29.8 MCHC 31.6 RDW 13.8 Plt Count 279 MPV 9.4 Immature Gran % (Auto) 0.2 Neut % (Auto) 66.2 Lymph % (Auto) 17.3 L [place] % (Auto) 11.8 H Eos % (Auto) 4.1 H Baso % (Auto) 0.4 Lymph # (Auto) 1.5 [place] # (Auto) 1.0 Eos # (Auto) 0.4 Baso # (Auto) 0.0 Abs Immat Gran (auto) 0.02 Absolute Neuts (auto) 5.7 Absolute Nucleated RBC 0.000 Nucleated RBC % (auto) 0.0 ESR Anion Gap 13 Estim Creat Clear Calc 46.6 Estimated GFR > 60 Random Glucose 106 Lactic Acid Calcium 9.0 D C-Reactive Protein COVID-19 (ROBY) COVID-19 Clin Com Assessment and Plan (1) Cellulitis: Status: Acute (2) Osteomyelitis: Status: Acute Plan 82-year-old male with a past medical history of hypertension, hyperlipidemia, COPD, anemia, osteomyelitis, vitamin B12 deficiency, history of chronic foot ulcer presented to the hospital with a chief complaint of pus draining from the foot ulcer. # Right 1st metatarsal Osteomyelitis # Right foot cellulitis Continue IV vancomycin and Zosyn Id consult pending Surgery input appreciated, patient refused amputation, continue medical treatment X-ray showed soft tissue gas which is likely in the setting of open ulcer not from necrotizing infection history of COPD: Stable History hypertension: Continue home losartan DVT prophylaxis: Lovenox Patient will need overnight hospital stay to continue treatment of osteomyelitis with IV antibiotic pending safe discharge plan on IV antibiotics. Quality Stroke Does the patient have a stroke diagnosis?: No VTE Prior VTE?: No VTE Risk Level:: Medical - moderate - high VTE Device Contraindication: Treatment Not Indicated VTE Drug Contraindication: N/A - Med Ordered
--- NOTE | 2022-03-04 13:26 | W.PM.IDCN ---
History of Present Illness Data of Consult Service Date: 03/04/22 Requesting physician: Kiki Cassidy Primary Care Provider: Harman Connolly MD HPI Reason for consult: cellulitis,foot ulcer He presents with worsening right lateral foot ulcer with exudate,drainage and discomfort. He has nondiabetic neuropathy. He has erosion lateral 5th metatarsal with osteomyelitis. I had seen him in office 02/17/2022 as referral from Wound Care and he took Doxycycline 100 mg po bid to be taken for two months. He declined IV suppressive antibiotic therapy at the time. Review of Systems Review of Systems: Yes all other systems are reviewed and are negative PMF Past Medical History Medical History Anemia COPD (chronic obstructive pulmonary disease) Hypercholesterolemia Hypertension Insomnia Osteomyelitis Vitamin B12 deficiency Family History Family History Father Cancer Mother Cancer Family history: reviewed and not pertinent Surgical History Surgical History History of cataract surgery History of open reduction and internal fixation (ORIF) procedure Social History Social History Housing: Apartment Alcohol intake: never Patient Tobacco Use Status: Former Tobacco user Tobacco use type: Cigarette e-Cigarette/Vaping Use: Never Used Second Hand Smoke Exposure: No Advance Directives: No service: No Current occupational status: retired Cognitive needs: No Hearing needs: No Vision needs: No Meds Allergies Allergy/AdvReac Type Severity Reaction Status Date / Time No Known Allergies Allergy Verified 03/03/22 15:53 Active Medications: Current Medications Acetaminophen (Acetaminophen 325 Mg Tablet) 650 mg PO Q6H PRN PRN Reason: Pain, Mild (Pain Scale 1-3) Albuterol Sulfate (Albuterol Sulfate 90 Mcg 8 Gm Inhaler) 2 puff INHALE Q4H PRN PRN Reason: Shortness Of Breath Albuterol/Ipratropium (Albuterol/Iprat 2.5/0.5mg 3 Ml Ampul.Neb) 3 ml INHALE RQ4H PRN PRN Reason: Shortness of Breath/Wheezing Atorvastatin Calcium (Atorvastatin Calcium 40 Mg Tablet) 40 mg PO DAILY [facility] Last Admin: 03/04/22 10:09 Dose: 40 mg Documented by: Enoxaparin Sodium (Enoxaparin Sodium 40 Mg/0.4 Ml Syringe) 40 mg SUBCUT Q24H [facility] Last Admin: 03/04/22 00:51 Dose: 40 mg Documented by: Escitalopram Oxalate (Escitalopram Oxalate 5 Mg Tablet) 5 mg PO DAILY [facility] Last Admin: 03/04/22 10:09 Dose: 5 mg Documented by: Fluticasone/Vilanterol (Fluticasone/Vilanterol 200/25 Blst.W.Dev) 1 puff INHALE RDAILY [facility] Last Admin: 03/04/22 08:39 Dose: Not Given Documented by: Piperacillin Sod/Tazobactam (Sod 3.375 gm/ Sodium Chloride) 50 mls @ 100 mls/hr IV Q6H [facility] Last Infusion: 03/04/22 11:30 Dose: Infused Documented by: Vancomycin HCl 1,250 mg/ (Sodium Chloride) 250 mls @ 166.667 mls/hr IV Q24H [facility] Last Infusion: 03/04/22 11:00 Dose: Infused Documented by: Loratadine (Loratadine 10 Mg Tablet) 10 mg PO DAILY PRN PRN Reason: Allergy Symptoms Losartan Potassium (Losartan Potassium 25 Mg Tablet) 25 mg PO DAILY [facility]; Protocol Last Admin: 03/04/22 10:09 Dose: 25 mg Documented by: Melatonin (Melatonin 3 Mg Tablet) 6 mg PO BEDTIME PRN PRN Reason: Insomnia Last Admin: 03/04/22 00:51 Dose: 6 mg Documented by: Non-Formulary Medication (Cholecalciferol (Vitamin D3)) 1,250 mcg PO MO [facility] Pharmacy Consult (Consult Rx Perform Med Rec) 1 each MISCELLANE ONCE PRN PRN Reason: Consult order Pharmacy Consult (Consult Rx Vancomycin Dosing) 1 each MISCELLANE DAILY PRN PRN Reason: Consult order Senna (Sennosides 8.6 Mg Tablet) 17.2 mg PO BEDTIME PRN PRN Reason: Constipation Sodium Chloride (0.9 % Sodium Chloride Flush 3 Ml Syringe) 3 ml IVFLUSH QSHIFT [facility] Last Admin: 03/04/22 09:52 Dose: Not Given Documented by: Tiotropium [place] (Tiotropium [place] 18 Mcg Cap.W.Dev) 1 puff INHALE RDAILY [facility] Last Admin: 03/04/22 08:39 Dose: Not Given Documented by: Home Medications Medication Instructions Recorded Confirmed Last Taken Type albuterol sulfate 90 mcg/actuation 2 puff INHALATION Q4H PRN 08/06/20 03/03/22 Unknown History aerosol inhaler (ProAir HFA) cholecalciferol (vitamin D3) 1,250 1,250 mcg PO MO 08/06/20 03/03/22 02/24/22 History mcg (50,000 unit) capsule loratadine 10 mg tablet 10 mg PO DAILY PRN 03/03/22 03/03/22 Unknown History losartan 25 mg tablet 1 tab PO DAILY 03/03/22 03/03/22 03/02/22 History Physical Exam Vital Signs: Vital Signs: Last Vital Signs Temp 96.5 F L 03/04/22 11:18 Pulse 61 03/04/22 11:18 Resp 18 03/04/22 11:18 BP 101/48 L 03/04/22 11:18 Pulse Ox 96 03/04/22 11:18 BMI result Body Mass Index 25.8 Const: General: cooperative HEENT: Head: Yes normal to inspection Mouth: Normal oral and palatal mucosa present Resp: Effort & Inspection: normal respiratory effort Cardio: Rate: regular rate Rhythm: regular rhythm GI: Palpation (GI): Soft to palpation and nontender Skin: General skin exam: no rashes or lesions noted Extrem: Other: open 3 cm ulcer lateral left foot with resolving cellulitis since line drawn on foot in ER Results Labs CBC & Chem 7: 03/04/22 04:28 03/04/22 04:28 Labs: Short CBC 03/03/22 03/04/22 Range/Units 18:23 04:28 WBC 11.0 H 8.6 (4.8-10.8) X10*3/uL Hgb 12.4 L 10.7 L (14.0-18.0) g/dl Hct 38.5 L 33.9 L (42.0-52.0) % Plt Count 293 279 (160-400) X10*3/uL BMP 03/03/22 03/04/22 18:23 04:28 Sodium 139 138 Potassium 5.5 H 4.5 Chloride 101 102 Carbon Dioxide 26 28 BUN 29 H 28 H Creatinine 1.27 1.14 Calcium 9.6 9.0 D Assessment and Plan (1) Osteomyelitis: Status: Acute He will agree to assisted IV antibiotic suppressive therapy at this time Plan Continue Vancomycin and Zosyn at this time. Unless organism dictates otherwise IV Vancomycin or Daptomycin outpatient six weeks likely staph /strep
--- NOTE | 2022-03-04 13:51 | P.CDIC_ITS ---
CDI Concurrent Query Documentation Clarification: PHYSICIAN'S DOCUMENTATION REQUEST Date of Query: 03/04/22 5715 Patient Name: Beck Brown Admit Date: 03/03/22 Dear Doctor, A review of the medical record indicates additional documentation may be needed. Please review below and update the documentation accordingly. Risk Factors/Clinical Indicators/Treatments On 03/03/22: potassium 5.5 Treated with Lokelma 10 gm po once 03/03/22 On 03/04/22: potassium 4.5 Based on the above, could you clarify in the Progress Notes the appropriate diagnosis, if significant, that supports the above abnormalities and additional evaluation, monitoring, and/or treatment rendered: * Based on the above, could you provide an associated diagnosis that would support the high potassium value requiring additional treatment, evaluation and monitoring * Other (please specify) * Unable to determine Use of terms such as suspected, likely, concern for, or probable (associated with a specific diagnosis that is being evaluated, monitored, or treated as if it exists) are acceptable and can be coded in the inpatient setting, when documented at the time of discharge. Thank you, Ani Sosa RN Extension: [phone] Please use your independent medical judgment in providing your response. THIS QUERY IS PART OF THE PERMANENT MEDICAL RECORD Provider Response: Other Other Diagnosis: hyperkalemia, resolved
--- NOTE | 2022-03-04 13:55 | PC.NURSE ---
Updated pt and family member of plan of care
[2022-03-05] VITALS: BP 98/53; PULSE 75; RESP 18; TEMP 37.3; O2SAT 94
[2022-03-05] MEDS: Piperacillin Sodium/Tazobactam 3.375 GM in 0.9 % Sodium Chloride 50 ML IV ×4 (02:58→20:08)
[2022-03-05] MEDS: Enoxaparin Sodium 40 MG/0.4 ML SYRINGE SUBCUT (02:59)
[2022-03-05 07:31] VITALS: BP 132/68; PULSE 78; RESP 20; TEMP 37.1; O2SAT 96
[2022-03-05 07:44] LABS: Hematocrit 30.5 % (42.0-52.0); Hemoglobin 9.7 g/dl (14.0-18.0); Mean Corpuscular HGB Conc 31.8 g/dl (31.0-36.0); Mean Corpuscular Hemoglobin 30.1 pg (27.0-33.0); Mean Corpuscular Volume 94.7 fL (80.0-98.0); Mean Platelet Volume 9.1 fL (9.4-12.4); Platelet Count 282 X10*3/uL (160-400); Red Blood Count 3.22 X10*6/uL (4.60-5.80); Red Cell Distribution Width 13.7 % (11.0-16.0); White Blood Count 8.5 X10*3/uL (4.8-10.8)
[2022-03-05] MEDS: vancomycin HCL 1,250 MG in 0.9 % Sodium Chloride 250 ML 166.67 MG IV (07:54)
[2022-03-05 07:59] LABS: Creatinine Clr Calc Pharmacy 37.4; Estimated Glomerular Filt Rate 48
[2022-03-05 08:03] LABS: Anion Gap 11 (12-20); Blood Urea Nitrogen 28 mg/dL (9-16); Calcium 8.4 mg/dL (8.4-10.2); Carbon Dioxide 29 mmol/L (22-29); Chloride 104 mmol/L (96-108); Creatinine Clr Calc Pharmacy 37.1; Estimated Glomerular Filt Rate 48; Glucose Random 112 mg/dL (60-115); Potassium 4.4 mmol/L (3.3-5.1); Sodium 140 mmol/L (135-145)
[2022-03-05] MEDS: 0.9 % Sodium Chloride Flush 3 ML SYRINGE IVFLUSH ×3 (08:03→16:00)
--- NOTE | 2022-03-05 08:17 | PM.PNGS ---
Subjective Subjective Date of Service: 03/05/22 Interval history: Says he feels much better Pain much improved on right foot No other events reported Physical Exam Vital Signs: Vital Signs: Last Vital Signs Temp 98.8 F 03/05/22 07:31 Pulse 78 03/05/22 07:31 Resp 20 03/05/22 07:31 BP 132/68 03/05/22 07:31 Pulse Ox 96 03/05/22 07:31 BMI result Body Mass Index 25.8 Const: General: comfortable and no acute distress Resp: Effort & Inspection: normal respiratory effort Cardio: Rate: regular rate GI: Palpation (GI): Soft to palpation, not firm and nontender Extrem: Other: Right foot with ulcer rectal aspect, dry, edema and redness have improved significantly Objective Data Active Medications Acetaminophen (Acetaminophen 325 Mg Tablet) 650 mg PO Q6H PRN PRN Reason: Pain, Mild (Pain Scale 1-3) Albuterol Sulfate (Albuterol Sulfate 90 Mcg 8 Gm Inhaler) 2 puff INHALE Q4H PRN PRN Reason: Shortness Of Breath Albuterol/Ipratropium (Albuterol/Iprat 2.5/0.5mg 3 Ml Ampul.Neb) 3 ml INHALE RQ4H PRN PRN Reason: Shortness of Breath/Wheezing Atorvastatin Calcium (Atorvastatin Calcium 40 Mg Tablet) 40 mg PO DAILY [facility] Last Admin: 03/04/22 10:09 Dose: 40 mg Documented by: HUA Enoxaparin Sodium (Enoxaparin Sodium 40 Mg/0.4 Ml Syringe) 40 mg SUBCUT Q24H [facility] Last Admin: 03/05/22 02:59 Dose: 40 mg Documented by: COLIN Escitalopram Oxalate (Escitalopram Oxalate 5 Mg Tablet) 5 mg PO DAILY [facility] Last Admin: 03/04/22 10:09 Dose: 5 mg Documented by: HUA Fluticasone/Vilanterol (Fluticasone/Vilanterol 200/25 Blst.W.Dev) 1 puff INHALE RDAILY [facility] Last Admin: 03/04/22 08:39 Dose: Not Given Documented by: SUZANNE Non-Admin Reason: Med Not Available Piperacillin Sod/Tazobactam (Sod 3.375 gm/ Sodium Chloride) 50 mls @ 100 mls/hr IV Q6H [facility] Last Infusion: 03/05/22 04:03 Dose: 0 mls/hr Documented by: COLIN Vancomycin HCl 1,000 mg/ (Sodium Chloride) 270 mls @ 270 mls/hr IV Q24H [facility] Loratadine (Loratadine 10 Mg Tablet) 10 mg PO DAILY PRN PRN Reason: Allergy Symptoms Losartan Potassium (Losartan Potassium 25 Mg Tablet) 25 mg PO DAILY [facility]; Protocol Last Admin: 03/04/22 10:09 Dose: 25 mg Documented by: HUA Melatonin (Melatonin 3 Mg Tablet) 6 mg PO BEDTIME PRN PRN Reason: Insomnia Last Admin: 03/04/22 00:51 Dose: 6 mg Documented by: PAPITO-COLEGumaro Non-Formulary Medication (Cholecalciferol (Vitamin D3)) 1,250 mcg PO MO [facility] Pharmacy Consult (Consult Rx Perform Med Rec) 1 each MISCELLANE ONCE PRN PRN Reason: Consult order Pharmacy Consult (Consult Rx Vancomycin Dosing) 1 each MISCELLANE DAILY PRN PRN Reason: Consult order Senna (Sennosides 8.6 Mg Tablet) 17.2 mg PO BEDTIME PRN PRN Reason: Constipation Sodium Chloride (0.9 % Sodium Chloride Flush 3 Ml Syringe) 3 ml IVFLUSH QSHIFT [facility] Last Admin: 03/05/22 08:03 Dose: 3 ml Documented by: ESTEPHANIA Tiotropium [place] (Tiotropium [place] 18 Mcg Cap.W.Dev) 1 puff INHALE RDAILY [facility] Last Admin: 03/04/22 08:39 Dose: Not Given Documented by: SUZANNE Non-Admin Reason: Med Not Available Labs CBC & Chem 7: 03/05/22 07:24 03/05/22 07:24 Labs: Laboratory Results - last 24 hr 03/05/22 03/05/22 03/05/22 07:24 07:24 07:24 MCV 94.7 MCH 30.1 MCHC 31.8 RDW 13.7 Plt Count 282 MPV 9.1 L Absolute Nucleated RBC 0.000 Nucleated RBC % (auto) 0.0 Anion Gap 11 L Estim Creat Clear Calc 37.4 37.1 Estimated GFR 48 48 Random Glucose 112 Calcium 8.4 D Microbiology Microbiology Results: Microbiology 03/03/22 20:18 Blood Culture - Preliminary Blood - Venous No growth after 24 hours. 03/03/22 20:18 Blood Culture - Preliminary Blood - Venous No growth after 24 hours. Procedures Date of Service Date of Service: 03/05/22 Progress Note: A&P Assessment and plan (1) Osteomyelitis: Status: Acute Assessment and Plan: Redness and edema have improved markedly I have changes dressings Wrapped the foot with Tra roll He wants to avoid amputation for now IV antibiotic treatment Time Spent With Patient Time: Total time spent is greater than 50% in coordination of care (as documented) at patient's floor/unit and/or counseling patient: Quality Stroke Does the patient have a stroke diagnosis?: No VTE Prior VTE?: No VTE Risk Level:: Medical - moderate - high VTE Device Contraindication: Treatment Not Indicated VTE Drug Contraindication: N/A - Med Ordered
[2022-03-05] MEDS: Escitalopram Oxalate 5 MG TABLET PO (08:24)
[2022-03-05] MEDS: Losartan Potassium 25 MG TABLET PO (08:24)
[2022-03-05] MEDS: Atorvastatin Calcium 40 MG TABLET PO (08:24)
[2022-03-05 10:26] LABS: Appearance Urine CLEAR; Color Urine YELLOW; Glucose Urine UA NEG (NEG); Leukocyte Esterase Urine NEG (NEG); Nitrite Urine NEG (NEG); PH 5.5 (5.0-8.0); Specific Gravity - Urine 1.025 (1.005-1.025); UACC Culture Trigger NO; Urine Blood TRACE (NEG); Urine Ketones NEG (NEG); Urine Protein NEG (NEG-TRACE)
[2022-03-05 10:39] LABS: Squamous Epithelial Cell Urine TRACE /LPF; WBC Urine 0-2 /HPF (0-4)
[2022-03-05 10:43] LABS: Creatinine Urine 134.97 mg/dL
[2022-03-05] MEDS: vancomycin HCL 1,000 MG in 0.9 % Sodium Chloride 250 ML 270 MG IV (11:07)
--- NOTE | 2022-03-05 11:28 | PHA.PROG ---
Addendum entered by Jolie Pedro RPh 03/05/22 11:40: Expected AUC 504 with a trough of 15.9 Original Note: Admission Date/Time: March 03, 2022 23:46 Indication: Cellutilitis w/ suspect Osteomylitis Weight in k.575 kg Adjusted body weight in K.31 [place] body weight in Kg: Obesity Dosing Indication % IBW: Serum Creatinine - Last 168 Hours 03/03/22 03/04/22 03/05/22 18:23 04:28 07:24 Creatinine 1.27 1.14 1.42 H 03/05/22 07:24 Creatinine 1.43 H Estimated CrCl and GFR - Last 168 Hours 03/03/22 03/04/22 03/05/22 18:23 04:28 07:24 Estim Creat Clear Calc 41.8 46.6 37.4 Estimated GFR 55 > 60 48 03/05/22 07:24 Estim Creat Clear Calc 37.1 Estimated GFR 48 Vancomycin Loading Dose: 750 MG + 1250 MG (12 HOURS APART) Current Vancomycin Dosing Regimen: 1250 mg Q24H Date and Time for next Vancomycin Level to be drawn:03/06 @ 0900 Pharmacist Comments on Vancomycin Plan: First dose given vancomycin 750 mg (10 mg/kg) in the ED, was not a optimal loading dose for patient. Vancomycin 1250 mg was given 12 hours later to create a load dose. Renal function has decline. 03/05 dose of vancomycin 1250 mg was start at 0754. Once SCr was noticed, YANNA Mcnamara was notified to stop infuse at 0810 and infusion was stop at 0812. Will decrease dose to 1000 mg Q24H. Since part of the 1250 mg dose was infused will wait 4 hours to start vancomycin 1000 mg. Trough to be drawn prior to 4th dose of vancomycin. It is important to evaluate the safety as patient's SCr increased rapidly Pharmacy will closely monitor renal function daily Jolie Pedro PharmD Vancomycin dosing will take advantage of [employer] as a clinical decision support tool that uses Bayesian modeling to calculate individual patient's pharmacokinetic parameters and forecast the patient's drug concentration time course with the target goal AUC 24 range of 400 - 600 mg/L/hr.
--- NOTE | 2022-03-05 11:44 | HO.PM.IMPN ---
Subjective Subjective Date of Service: 03/05/22 Interval History: the patient was seen and evaluated this morning Laying in bed, feels comfortable with no pain in his foot Denies any fever, chills or shortness of breath No reported other overnight events. Systemic review: No fever, chills or weakness No chest pain, palpitation No shortness of breath or coughing No abdominal pain, nausea or vomiting No urinary symptoms Open wound in his right foot Physical Exam Vital Signs: Vital Signs: Last Vital Signs Temp 98.8 F 03/05/22 07:31 Pulse 78 03/05/22 07:31 Resp 20 03/05/22 07:31 BP 132/68 03/05/22 07:31 Pulse Ox 96 03/05/22 07:31 BMI result Body Mass Index 25.8 Const: Other: Constitutional : Alert, oriented, not in distress Neck : Normal inspection, Supple Cardiovascular : RRR, no JVP, no lower extremity edema Respiratory : fair bilateral air entry, no crackles, wheezes or rhonchi Gastrointestinal: soft, lax, Normal bowel sounds, Non tender Skin : Warm, Dry, Right 1st metatarsophalangeal ulcer with open wound with surrounding edema and cellulitis in the right foot;wound about 1x1 cm, no drainage noticed Neurological : Alert & oriented x3, No focal deficit , CN 2-12 within normal Objective Data Active Medications Acetaminophen (Acetaminophen 325 Mg Tablet) 650 mg PO Q6H PRN PRN Reason: Pain, Mild (Pain Scale 1-3) Albuterol Sulfate (Albuterol Sulfate 90 Mcg 8 Gm Inhaler) 2 puff INHALE Q4H PRN PRN Reason: Shortness Of Breath Albuterol/Ipratropium (Albuterol/Iprat 2.5/0.5mg 3 Ml Ampul.Neb) 3 ml INHALE RQ4H PRN PRN Reason: Shortness of Breath/Wheezing Atorvastatin Calcium (Atorvastatin Calcium 40 Mg Tablet) 40 mg PO DAILY [facility] Last Admin: 03/05/22 08:24 Dose: 40 mg Documented by: ESTEPHANIA Enoxaparin Sodium (Enoxaparin Sodium 40 Mg/0.4 Ml Syringe) 40 mg SUBCUT Q24H [facility] Last Admin: 03/05/22 02:59 Dose: 40 mg Documented by: COLIN Escitalopram Oxalate (Escitalopram Oxalate 5 Mg Tablet) 5 mg PO DAILY [facility] Last Admin: 03/05/22 08:24 Dose: 5 mg Documented by: ESTEPHANIA Fluticasone/Vilanterol (Fluticasone/Vilanterol 200/25 Blst.W.Dev) 1 puff INHALE RDAILY [facility] Last Admin: 03/04/22 08:39 Dose: Not Given Documented by: SUZANNE Non-Admin Reason: Med Not Available Piperacillin Sod/Tazobactam (Sod 3.375 gm/ Sodium Chloride) 50 mls @ 100 mls/hr IV Q6H [facility] Last Infusion: 03/05/22 09:48 Dose: 0 mls/hr Documented by: ESTEPHANIA Vancomycin HCl 1,000 mg/ (Sodium Chloride) 270 mls @ 270 mls/hr IV Q24H [facility] Last Admin: 03/05/22 11:07 Dose: 270 mls/hr Documented by: ESTEPHANIA Loratadine (Loratadine 10 Mg Tablet) 10 mg PO DAILY PRN PRN Reason: Allergy Symptoms Losartan Potassium (Losartan Potassium 25 Mg Tablet) 25 mg PO DAILY [facility]; Protocol Last Admin: 03/05/22 08:24 Dose: 25 mg Documented by: ESTEPHANIA Melatonin (Melatonin 3 Mg Tablet) 6 mg PO BEDTIME PRN PRN Reason: Insomnia Last Admin: 03/04/22 00:51 Dose: 6 mg Documented by: OTONIEL Non-Formulary Medication (Cholecalciferol (Vitamin D3)) 1,250 mcg PO MO [facility] Pharmacy Consult (Consult Rx Perform Med Rec) 1 each MISCELLANE ONCE PRN PRN Reason: Consult order Pharmacy Consult (Consult Rx Vancomycin Dosing) 1 each MISCELLANE DAILY PRN PRN Reason: Consult order Senna (Sennosides 8.6 Mg Tablet) 17.2 mg PO BEDTIME PRN PRN Reason: Constipation Sodium Chloride (0.9 % Sodium Chloride Flush 3 Ml Syringe) 3 ml IVFLUSH QSHIFT [facility] Last Admin: 03/05/22 08:03 Dose: 3 ml Documented by: ESTEPHANIA Tiotropium [place] (Tiotropium [place] 18 Mcg Cap.W.Dev) 1 puff INHALE RDAILY [facility] Last Admin: 03/05/22 08:42 Dose: Not Given Documented by: SHRADDHA Non-Admin Reason: Med Not Available Labs CBC & Chem 7: 05/11/22 07:24 03/05/22 07:24 Labs: Laboratory Results - last 24 hr 03/05/22 03/05/22 03/05/22 07:24 07:24 07:24 MCV 94.7 MCH 30.1 MCHC 31.8 RDW 13.7 Plt Count 282 MPV 9.1 L Absolute Nucleated RBC 0.000 Nucleated RBC % (auto) 0.0 Anion Gap 11 L Estim Creat Clear Calc 37.4 37.1 Estimated GFR 48 48 Random Glucose 112 Calcium 8.4 D Urine Color Urine Appearance Urine pH Ur Specific [place] Urine Protein Urine Glucose (UA) Urine Ketones Urine Blood Urine Nitrite Ur Leukocyte Esterase Urine RBC Urine WBC Ur Squamous Epith Cells Urine Bacteria Ur Random Sodium Urine Creatinine 03/05/22 03/05/22 10:04 10:04 MCV MCH MCHC RDW Plt Count MPV Absolute Nucleated RBC Nucleated RBC % (auto) Anion Gap Estim Creat Clear Calc Estimated GFR Random Glucose Calcium Urine Color YELLOW Urine Appearance CLEAR Urine pH 5.5 Ur Specific [place] 1.025 Urine Protein NEG Urine Glucose (UA) NEG Urine Ketones NEG Urine Blood TRACE Urine Nitrite NEG Ur Leukocyte Esterase NEG Urine RBC 1-4 Urine WBC 0-2 Ur Squamous Epith Cells TRACE Urine Bacteria NONE Ur Random Sodium 47.0 Urine Creatinine 134.97 Microbiology Microbiology Results: Microbiology 03/03/22 20:18 Blood Culture - Preliminary Blood - Venous No growth after 24 hours. 03/03/22 20:18 Blood Culture - Preliminary Blood - Venous No growth after 24 hours. Assessment and Plan (1) Osteomyelitis: Status: Acute (2) Acute renal failure superimposed on stage 2 chronic kidney disease: Status: Acute Plan 82-year-old male with a past medical history of hypertension, hyperlipidemia, COPD, anemia, osteomyelitis, vitamin B12 deficiency, history of chronic foot ulcer presented to the hospital with a chief complaint of pus draining from the foot ulcer. # Right 1st metatarsal Osteomyelitis # Right foot cellulitis Continue IV vancomycin and Zosyn Id input appreciated, if cultures negative consider daptomycin or vancomycin for total of 6 weeks Surgery input appreciated, patient refused amputation, continue medical treatment X-ray showed soft tissue gas which is likely in the setting of open ulcer not from necrotizing infection Pending final blood cultures # acute kidney injury Creatinine of 1.4 from baseline of 1.1. Reduced vancomycin dose Avoid nephrotoxic medications Urine analysis and electrolytes Follow BMP of COPD: Stable History hypertension: Continue home losartan DVT prophylaxis: Lovenox Patient will need overnight hospital stay to continue treatment of osteomyelitis with IV antibiotic pending safe discharge plan on IV antibiotics. Quality Stroke Does the patient have a stroke diagnosis?: No VTE Prior VTE?: No VTE Risk Level:: Medical - moderate - high VTE Device Contraindication: Treatment Not Indicated VTE Drug Contraindication: N/A - Med Ordered
--- NOTE | 2022-03-05 15:00 | PC.NURSE ---
Patient alert and oriented x3, VSS. Patient denies pain, nausea, dizziness. Dr. Ernst in to change L foot wound dressing. Antibiotics given per EMAR. supervision/1 assist to bathroom with walker, per patient feeling unsteady . Lung sounds clear, +bowel sounds. All needs met, patient has no complaints at this time.
[2022-03-05 15:54] VITALS: BP 95/59; PULSE 67; RESP 17; TEMP 36.6; O2SAT 98
--- NOTE | 2022-03-05 16:00 | PC.NURSE ---
patient a&ox3, denies pain or discomfort, family at bedside, pts bp remains a little soft- asymtomatic of symptoms, call pimentel within reach, family at bedside, will continue to monitor.
[2022-03-05 17:27] VITALS: BP 94/59; PULSE 66; RESP 18; TEMP 36.9; O2SAT 95
[2022-03-05 21:42] VITALS: BP 142/70; PULSE 80; RESP 18; TEMP 36.4; O2SAT 95
[2022-03-05 22:20] VITALS: BMI 25.1
[2022-03-06] VITALS: BP 114/61; PULSE 90; RESP 17; TEMP 36.3; O2SAT 95
[2022-03-06] MEDS: 0.9 % Sodium Chloride Flush 3 ML SYRINGE IVFLUSH ×4 (00:01→23:09)
[2022-03-06] MEDS: Enoxaparin Sodium 40 MG/0.4 ML SYRINGE SUBCUT ×2 (01:59→23:09)
[2022-03-06] MEDS: Piperacillin Sodium/Tazobactam 3.375 GM in 0.9 % Sodium Chloride 50 ML IV ×2 (01:59→09:09)
[2022-03-06 04:00] VITALS: BP 95/62; PULSE 76; RESP 17; TEMP 36.2; O2SAT 95
[2022-03-06 06:45] LABS: Anion Gap 10 (12-20); Blood Urea Nitrogen 15 mg/dL (9-16); Calcium 8.6 mg/dL (8.4-10.2); Carbon Dioxide 29 mmol/L (22-29); Chloride 103 mmol/L (96-108); Creatinine Clr Calc Pharmacy 52.1; Estimated Glomerular Filt Rate > 60; Glucose Random 92 mg/dL (60-115); Potassium 4.3 mmol/L (3.3-5.1); Sodium 138 mmol/L (135-145)
[2022-03-06 07:34] VITALS: BP 118/60; PULSE 78; RESP 20; TEMP 36.4; O2SAT 96
[2022-03-06] MEDS: Escitalopram Oxalate 5 MG TABLET PO (09:08)
[2022-03-06] MEDS: Atorvastatin Calcium 40 MG TABLET PO (09:09)
[2022-03-06 09:16] LABS: Vancomycin Trough 11.7 mcg/mL (10.0-20.0)
--- NOTE | 2022-03-06 09:24 | HE.PHANOTE ---
ROBBIN HIDALGO, TROUGH WAS 11.7, SUBTHERAPUETIC AUC, INCREASE DOSE TO 1250MG Q24H, NEXT TROUGH 03/08 @0800
--- NOTE | 2022-03-06 10:17 | MHC.CM.PN ---
CM MET W/PT TO DISCUSS DCP AND NEED FOR 6 WKS IV ABX VANCO OR DAPTO PER ID NOTE, PT REPORTS HIS AND DTR JIM CAN ASSIST AT HOME, PT REPORTS NO PREFERENCES IN [facility] OR HOME INFUSION, PT REQUESTING CM SPEAK W/HIS WHO WILL BE LATER THIS MORNING, CM WILL REVISIT WHEN IS HERE. BLANKET REFERRAL SENT W/PT PERMISSION D/T PT'S INSURANCE, REFERRAL PLACED TO [facility] AND PER [facility] SHE CAN COME IN FOR A TEACH TOMORROW MORNING.
[2022-03-06] MEDS: vancomycin HCL 1,250 MG in 0.9 % Sodium Chloride 250 ML 166.67 MG IV (11:00)
--- NOTE | 2022-03-06 11:10 | PM.PNGS ---
Subjective Subjective Date of Service: 03/06/22 Interval history: He says he has foot continues to feel better Denies pain now Physical Exam Vital Signs: Vital Signs: Last Vital Signs Temp 97.6 F 03/06/22 07:34 Pulse 78 03/06/22 07:34 Resp 20 03/06/22 07:34 BP 118/60 03/06/22 07:34 Pulse Ox 96 03/06/22 07:34 BMI result Body Mass Index 25.1 Const: General: comfortable and no acute distress Resp: Effort & Inspection: normal respiratory effort Cardio: Rate: regular rate GI: Palpation (GI): Soft to palpation and not firm Extrem: Other: Right foot much less swollen, less redness, ulcer on lateral aspect dry Objective Data Active Medications Acetaminophen (Acetaminophen 325 Mg Tablet) 650 mg PO Q6H PRN PRN Reason: Pain, Mild (Pain Scale 1-3) Albuterol Sulfate (Albuterol Sulfate 90 Mcg 8 Gm Inhaler) 2 puff INHALE Q4H PRN PRN Reason: Shortness Of Breath Albuterol/Ipratropium (Albuterol/Iprat 2.5/0.5mg 3 Ml Ampul.Neb) 3 ml INHALE RQ4H PRN PRN Reason: Shortness of Breath/Wheezing Atorvastatin Calcium (Atorvastatin Calcium 40 Mg Tablet) 40 mg PO DAILY [facility] Last Admin: 03/06/22 09:09 Dose: 40 mg Documented by: ROBERT Enoxaparin Sodium (Enoxaparin Sodium 40 Mg/0.4 Ml Syringe) 40 mg SUBCUT Q24H [facility] Last Admin: 03/06/22 01:59 Dose: 40 mg Documented by: ROSI Escitalopram Oxalate (Escitalopram Oxalate 5 Mg Tablet) 5 mg PO DAILY [facility] Last Admin: 03/06/22 09:08 Dose: 5 mg Documented by: ROBERT Fluticasone/Vilanterol (Fluticasone/Vilanterol 200/25 Blst.W.Dev) 1 puff INHALE RDAILY [facility] Last Admin: 03/06/22 07:55 Dose: Not Given Documented by: ELVIN Non-Admin Reason: Med Not Available Piperacillin Sod/Tazobactam (Sod 3.375 gm/ Sodium Chloride) 50 mls @ 100 mls/hr IV Q6H [facility] Last Infusion: 03/06/22 10:52 Dose: 0 mls/hr Documented by: ROBERT Vancomycin HCl 1,250 mg/ (Sodium Chloride) 250 mls @ 166.667 mls/hr IV Q24H [facility] Last Admin: 03/06/22 11:00 Dose: 166.67 mls/hr Documented by: ROBERT Loratadine (Loratadine 10 Mg Tablet) 10 mg PO DAILY PRN PRN Reason: Allergy Symptoms Melatonin (Melatonin 3 Mg Tablet) 6 mg PO BEDTIME PRN PRN Reason: Insomnia Last Admin: 03/04/22 00:51 Dose: 6 mg Documented by: OTONIEL Pharmacy Consult (Consult Rx Perform Med Rec) 1 each MISCELLANE ONCE PRN PRN Reason: Consult order Pharmacy Consult (Consult Rx Vancomycin Dosing) 1 each MISCELLANE DAILY PRN PRN Reason: Consult order Senna (Sennosides 8.6 Mg Tablet) 17.2 mg PO BEDTIME PRN PRN Reason: Constipation Sodium Chloride (0.9 % Sodium Chloride Flush 3 Ml Syringe) 3 ml IVFLUSH QSHIFT [facility] Last Admin: 03/06/22 09:09 Dose: 3 ml Documented by: ROBERT Tiotropium [place] (Tiotropium [place] 18 Mcg Cap.W.Dev) 1 puff INHALE RDAILY [facility] Last Admin: 03/06/22 07:58 Dose: Not Given Documented by: ELVIN Non-Admin Reason: Med Not Available Labs CBC & Chem 7: 03/05/22 07:24 03/06/22 05:33 Labs: Laboratory Results - last 24 hr 03/06/22 03/06/22 05:33 08:43 Anion Gap 10 L Estim Creat Clear Calc 52.1 Estimated GFR > 60 Random Glucose 92 Calcium 8.6 Vancomycin Trough 11.7 Microbiology Microbiology Results: Microbiology 03/03/22 20:18 Blood Culture - Preliminary Blood - Venous No growth after 48 hours. 03/03/22 20:18 Blood Culture - Preliminary Blood - Venous No growth after 48 hours. Procedures Date of Service Date of Service: 03/06/22 Progress Note: A&P Assessment and plan (1) Osteomyelitis: Status: Acute Assessment and Plan: He does not want amputation for the 5th toe Continue IV antibiotics Dressings changed Daily wound care with dry dressings at home Time Spent With Patient Time: Total time spent is greater than 50% in coordination of care (as documented) at patient's floor/unit and/or counseling patient: Quality Stroke Does the patient have a stroke diagnosis?: No VTE Prior VTE?: No VTE Risk Level:: Medical - moderate - high VTE Device Contraindication: Treatment Not Indicated VTE Drug Contraindication: N/A - Med Ordered
[2022-03-06 11:38] VITALS: BP 119/58; PULSE 65; RESP 20; TEMP 36.4; O2SAT 96
--- NOTE | 2022-03-06 13:54 | P.CDIC_ITS ---
CDI Concurrent Query Documentation Clarification: PHYSICIAN'S DOCUMENTATION REQUEST Date of Query: 03/06/22 9146 Patient Name: Beck Brown Admit Date: 03/03/22 Dear Doctor, A review of the medical record indicates additional documentation may be needed. Please review below and update the documentation accordingly. Clinical Indicators: Risk Factors/Clinical Indicators/Treatments Per MD progress note 03/05/22: Right 1st metatarsal Osteomyelitis Right foot cellulitis Continue IV Vancomycin and Zosyn Based on the above, please clarify in the Progress Notes further specificity regarding the type of Osteomyelitis. Also include specific site with laterality and known or suspected infectious agent: * Acute osteomyelitis * Acute hematogenous osteomyelitis * Subacute osteomyelitis * Chronic osteomyelitis * Chronic hemotogenous osteomyelitis * Chronis multifocal osteomyelitis * Chronic osteomyelitis with draining sinus * Other (please specify) * Unable to determine Use of terms such as suspected, likely, concern for, or probable (associated with a specific diagnosis that is being evaluated, monitored, or treated as if it exists) are acceptable and can be coded in the inpatient setting, when documented at the time of discharge. Thank you, Ani Sosa RN Extension: [phone] Please use your independent medical judgment in providing your response. THIS QUERY IS PART OF THE PERMANENT MEDICAL RECORD Provider Response: Other Other Diagnosis: acute osteo
--- NOTE | 2022-03-06 13:59 | P.CDIC_ITS ---
CDI Concurrent Query Documentation Clarification: PHYSICIAN'S DOCUMENTATION REQUEST Date of Query: 03/06/22 2278 Patient Name: Beck Brown Admit Date: 03/03/22 Dear Doctor, A review of the medical record indicates additional documentation may be indicated. Please review below and update the documentation accordingly. Clinical Indicators: Risk Factors/Clinical Indicators/Treatments Admit with open wound right foot lateral aspect Per surgery 03/04/22: not necrotizing, does not want amputation Treated with IV Vancomycin and Zosyn Based on the above, could you please provide, in the Progress Notes, further information regarding the ulcer/wound: * Type (etiology) of ulcer/wound: * Diabetic ulcer * Venous stasis ulcer * Arterial (ischemic) ulcer * Pressure (decubitus) ulcer * Traumatic wound * Non-healing surgical wound * Other * Unable to determine * For a non-pressure ulcer, please indicate the depth/severity: * Limited to the breakdown of skin * With fat layer exposed * With necrosis of muscle * With necrosis of bone * Other * Unable to determine *Source: National Pressure Ulcer Advisory Panel (NPUAP) Use of terms such as suspected, likely, concern for, or probable (associated with a specific diagnosis that is being evaluated, monitored, or treated as if it exists) are acceptable and can be coded in the inpatient setting, when documented at the time of discharge. Thank you, Ani Sosa RN Extension: [phone] Please use your independent medical judgment in providing your response. THIS QUERY IS PART OF THE PERMANENT MEDICAL RECORD Provider Response: Other Other Diagnosis: nonpressure ulcer with fat layer exposed
--- NOTE | 2022-03-06 13:59 | MHC.CDI.CONC ---
CDI Concurrent Query Documentation Clarification: PHYSICIAN'S DOCUMENTATION REQUEST Date of Query: 03/06/22 2254 Patient Name: Beck Brown Admit Date: 03/03/22 Dear Doctor, A review of the medical record indicates additional documentation may be indicated. Please review below and update the documentation accordingly. Clinical Indicators: Risk Factors/Clinical Indicators/Treatments Admit with open wound right foot lateral aspect Per surgery 03/04/22: not necrotizing, does not want amputation Treated with IV Vancomycin and Zosyn Based on the above, could you please provide, in the Progress Notes, further information regarding the ulcer/wound: Type (etiology) of ulcer/wound: Diabetic ulcer Venous stasis ulcer Arterial (ischemic) ulcer Pressure (decubitus) ulcer Traumatic wound Non-healing surgical wound Other Unable to determine For a non-pressure ulcer, please indicate the depth/severity: Limited to the breakdown of skin With fat layer exposed With necrosis of muscle With necrosis of bone Other Unable to determine *Source: National Pressure Ulcer Advisory Panel (NPUAP) Use of terms such as suspected, likely, concern for, or probable (associated with a specific diagnosis that is being evaluated, monitored, or treated as if it exists) are acceptable and can be coded in the inpatient setting, when documented at the time of discharge. Thank you, Ani Sosa RN Extension: [phone] Please use your independent medical judgment in providing your response. THIS QUERY IS PART OF THE PERMANENT MEDICAL RECORD Provider Response: Other Other Diagnosis: nonpressure ulcer with fat layer exposed
--- NOTE | 2022-03-06 14:18 | HO.PM.IMPN ---
Subjective Subjective Date of Service: 03/06/22 Interval History: seen and examined this morning follow up for osteo pain under adequate control Denies fever, chills, eager to return home Review of Systems Review of Systems: Yes all other systems are reviewed and are negative Constitutional Constitutional: Denies chills and Denies fever(s) Cardiovascular Cardiovascular: Denies chest pain, Denies palpitations and Denies dyspnea Respiratory Respiratory: Reports cough and Denies dyspnea Endocrine Endocrine: Denies palpitations Physical Exam Vital Signs: Vital Signs: Last Vital Signs Temp 97.6 F 03/06/22 11:38 Pulse 65 03/06/22 11:38 Resp 20 03/06/22 11:38 BP 119/58 L 03/06/22 11:38 Pulse Ox 96 03/06/22 11:38 BMI result Body Mass Index 25.1 Const: General: cooperative, comfortable, alert and awake Nutritional Appearance: average body habitus Orientation/consciousness: patient oriented x3 Resp: Effort & Inspection: normal respiratory effort and able to speak in complete sentences Cardio: Rate: regular rate Heart sounds: S1 normal heart sound present and S2 normal heart sound present GI: Inspection: No distended Palpation (GI): Soft to palpation and nontender Neuro: General: patient oriented x3 Extrem: Other: right foot with no significant erythema; ulcer base right 5th metatarsal Objective Data Active Medications Acetaminophen (Acetaminophen 325 Mg Tablet) 650 mg PO Q6H PRN PRN Reason: Pain, Mild (Pain Scale 1-3) Albuterol Sulfate (Albuterol Sulfate 90 Mcg 8 Gm Inhaler) 2 puff INHALE Q4H PRN PRN Reason: Shortness Of Breath Albuterol/Ipratropium (Albuterol/Iprat 2.5/0.5mg 3 Ml Ampul.Neb) 3 ml INHALE RQ4H PRN PRN Reason: Shortness of Breath/Wheezing Atorvastatin Calcium (Atorvastatin Calcium 40 Mg Tablet) 40 mg PO DAILY [facility] Last Admin: 03/06/22 09:09 Dose: 40 mg Documented by: ROBERT Enoxaparin Sodium (Enoxaparin Sodium 40 Mg/0.4 Ml Syringe) 40 mg SUBCUT Q24H [facility] Last Admin: 03/06/22 01:59 Dose: 40 mg Documented by: ROSI Escitalopram Oxalate (Escitalopram Oxalate 5 Mg Tablet) 5 mg PO DAILY [facility] Last Admin: 03/06/22 09:08 Dose: 5 mg Documented by: ROBERT Fluticasone/Vilanterol (Fluticasone/Vilanterol 200/25 Blst.W.Dev) 1 puff INHALE RDAILY [facility] Last Admin: 03/06/22 07:55 Dose: Not Given Documented by: ELVIN Non-Admin Reason: Med Not Available Piperacillin Sod/Tazobactam (Sod 3.375 gm/ Sodium Chloride) 50 mls @ 100 mls/hr IV Q6H [facility] Last Infusion: 03/06/22 10:52 Dose: 0 mls/hr Documented by: ROBERT Vancomycin HCl 1,250 mg/ (Sodium Chloride) 250 mls @ 166.667 mls/hr IV Q24H [facility] Last Infusion: 03/06/22 14:03 Dose: 0 mls/hr Documented by: ROBERT Loratadine (Loratadine 10 Mg Tablet) 10 mg PO DAILY PRN PRN Reason: Allergy Symptoms Melatonin (Melatonin 3 Mg Tablet) 6 mg PO BEDTIME PRN PRN Reason: Insomnia Last Admin: 03/04/22 00:51 Dose: 6 mg Documented by: OTONIEL Pharmacy Consult (Consult Rx Perform Med Rec) 1 each MISCELLANE ONCE PRN PRN Reason: Consult order Pharmacy Consult (Consult Rx Vancomycin Dosing) 1 each MISCELLANE DAILY PRN PRN Reason: Consult order Senna (Sennosides 8.6 Mg Tablet) 17.2 mg PO BEDTIME PRN PRN Reason: Constipation Sodium Chloride (0.9 % Sodium Chloride Flush 3 Ml Syringe) 3 ml IVFLUSH QSHIFT [facility] Last Admin: 03/06/22 09:09 Dose: 3 ml Documented by: ROBERT Tiotropium [place] (Tiotropium [place] 18 Mcg Cap.W.Dev) 1 puff INHALE RDAILY [facility] Last Admin: 03/06/22 07:58 Dose: Not Given Documented by: ELVIN Non-Admin Reason: Med Not Available Labs CBC & Chem 7: 03/05/22 07:24 03/06/22 05:33 Labs: Laboratory Results - last 24 hr 03/06/22 03/06/22 05:33 08:43 Anion Gap 10 L Estim Creat Clear Calc 52.1 Estimated GFR > 60 Random Glucose 92 Calcium 8.6 Vancomycin Trough 11.7 Microbiology Microbiology Results: Microbiology 03/03/22 20:18 Blood Culture - Preliminary Blood - Venous No growth after 48 hours. 03/03/22 20:18 Blood Culture - Preliminary Blood - Venous No growth after 48 hours. Assessment and Plan (1) Osteomyelitis: Status: Acute Plan 82-year-old male with a past medical history of hypertension, hyperlipidemia, COPD, anemia, osteomyelitis, vitamin B12 deficiency, history of chronic foot ulcer presented to the hospital with a chief complaint of pus draining from the foot ulcer.? Right 1st metatarsal subacute Osteomyelitis/Right foot cellulitis/non-pressure ulcer with fat layer exposed Continue IV vancomycin and Zosyn ID input appreciated, daptomycin or vancomycin for total of 6 weeks blood cultures negative Surgery input appreciated, patient refused amputation, continue medical treatment X-ray showed soft tissue gas which is likely in the setting of open ulcer not from necrotizing infection PICC line ordered, a planned discharge home with VNA/ home infusion services with 6 weeks of IV daptomycin acute kidney injury Resolved ?COPD: ?Stable History? hypertension: Continue home losartan Attending: dr. choe DVT prophylaxis:? Lovenox Patient will need overnight hospital stay to continue treatment of osteomyelitis with IV antibiotic pending safe discharge plan on IV antibiotics. Quality Stroke Does the patient have a stroke diagnosis?: No VTE Prior VTE?: No VTE Risk Level:: Medical - moderate - high VTE Device Contraindication: Treatment Not Indicated VTE Drug Contraindication: N/A - Med Ordered
--- NOTE | 2022-03-06 14:52 | MHC.CM.PN ---
CM MET W/PT AND AT BEDSIDE, PT'S REPORTS SHE IS NERVOUS HOWEVER SHE HAS BEEN REASSURED AND SHE WILL BE IN FOR A TEACH TOMORROW MORNING 03/07 AT 0900 FOR TEACH W/MUSTAPHA. PT'S WFE GAVE CM DTR JIM LAGUNAS'S NUMBER [phone] AND MUSTAPHA JOSEPH WILL REACH OUT TO HER AND SEND A VIDEO FOR A REFRESHER, JIM DOES HAVE A HX OF USING IV ABX AT HOME. CM HAS BEEN HAVING DIFFICULTY OBTAINING A VNA, [employer] REVIEWING AND MUSTAPHA WILL BE ABLE TO DO A TEACH AT SAT AM OR SUN BEFORE 4PM, PT'S REPORTS SHE WILL BE DOING PT'S IV ABX IN EVENINGS AFTER SHE GETS OUT OF WORK. CM WILL CONT TO FOLLOW.
[2022-03-06 16:00] VITALS: BP 119/52; PULSE 65; RESP 18; TEMP 36.8; O2SAT 95
--- NOTE | 2022-03-06 17:28 | PC.NURSE ---
03/06/2022 1600 PICC in left basilic vein by this RN , small hematoma noted. Second attempt x 1 by Sylvia Calvo RN. Unable to advanve. Pressure applied and warm compress applied. Reported to Bren Wilkerson, Case Mgt, and Nadine Brennan Floor RN. Will attempt in the am.
[2022-03-06 20:00] VITALS: BP 136/57; PULSE 65; RESP 18; TEMP 36.5; O2SAT 95
[2022-03-07] VITALS: BP 99/50; PULSE 60; RESP 18; TEMP 36.8; O2SAT 95
[2022-03-07 03:35] VITALS: BP 147/71; PULSE 68; RESP 18; TEMP 36.1; O2SAT 95
[2022-03-07 06:09] LABS: Creatinine Clr Calc Pharmacy 60.4; Estimated Glomerular Filt Rate > 60
[2022-03-07 07:40] VITALS: BP 141/68; PULSE 58; RESP 17; TEMP 36.1; O2SAT 96
[2022-03-07 08:17] VITALS: PULSE 57; RESP 18; O2SAT 92
[2022-03-07] MEDS: Escitalopram Oxalate 5 MG TABLET PO (09:23)
[2022-03-07] MEDS: Atorvastatin Calcium 40 MG TABLET PO (09:23)
[2022-03-07] MEDS: 0.9 % Sodium Chloride Flush 3 ML SYRINGE IVFLUSH (09:23)
--- NOTE | 2022-03-07 10:15 | P.F2F_ITS ---
Service Date Service Date: 03/07/22 Encounter Date of encounter: 03/07/22 Reasons for Services Signs and symptoms assessed: Blood pressure monitoring, wound care Reason for intermediate: wound care (daily dressing changes with dry dressings) Overseeing Care: Harman Connolly Homebound: Leaving the home is medically contraindicated at this time without the asist of a device and/or another person due th the listed conditions above and below. Reason homebound: unsteady gait / fall risk and poor balance / fall risk Certification: Based on the above findings, I certify that this patient is confined to the home and needs intermittent intermediate care, physical therapy and/or speech therapy, or continues to need occupational therapy. The patient is under my care, and I have initiated the establishment of the plan of care. The patient will be followed by a physician who will periodically review the plan of care.
--- NOTE | 2022-03-07 10:22 | PM.DS ---
DS: Providers Provider Date of Service: 03/07/22 Date of admission: 03/03/22 23:46 Date of discharge: 03/07/22 Primary care physician: Harman Connolly MD Consults: 03/03/22 23:46 Consult to Infectious Diseases Routine Consulting Provider: Reina Hooper Reason for consultation: cellulitis/foot ulcer; history of osteomyelitis 03/03/22 23:54 Consult to General Surgery Routine Consulting Provider: Ike Ernst Reason for consultation: foot ulcer/ cellulitis; x-ray shows gas Attending physician on discharge: Billy Terrell Discharging clinician: Mayte Mera DS: Diagnosis Discharge Diagnosis (1) Osteomyelitis: Status: Acute (2) Acute renal failure 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 Patient reports that he has been having this foot ulcer for many weeks; has been following with the wound clinic and was on antibiotics as outpatient.? Over the past few days he noted to have pus draining;? mentions he saw his? 40 arteries to surgery will go to the ER for further evaluation.? Patient denies any fever chills cough.? Denies any chest pain or palpitations.? Denies any GI symptoms. Patient reports that she has increased erythema around the ulcer site; denies any tenderness.? Review of all other systems is negative except mentioned above ER course: Per ER team patient noted of was trying from the ulcer; x-ray showed findings concerning for osteomyelitis and also noted to have cast -attributed to the open ulcer; given antibiotics; admitted to the hospital for further management. Right 1st metatarsal subacute Osteomyelitis/Right foot cellulitis/non-pressure ulcer with fat layer exposed. Patient was initially started on IV vancomycin and zosyn. Patient was seen in consultation by general surgery who recommended amputation of the fifth toe, the patient declined. He was seen in consultation by ID who recommended 6 weeks of IV daptomycin. blood cultures were negative. A PICC line was placed and he will be discharged home with VNA services/home infusion services for 6 weeks of damptomycin with an end date of April 13. acute kidney injury on CKD2. Creatinine on admission was 1.27 and bumped up to 1.43. His losartan was held and renal function improved to .88 on day of discharge. BP has been stable off of losartan. patient Should call to schedule follow-up appointment with PCP for close blood pressure monitoring and to determine the need to resume losartan. Time Spent with Patient Time attestation: Total time spent providing and/or coordinating discharge services: Discharge coordination time: Greater than 30 minutes Quality: Safe Use of Opioids Does Pt have an Active Cancer Diagnosis on the Problem List?: No Quality: Stroke Does the patient have a stroke diagnosis?: No Physical Exam Vital Signs: Vital Signs: Last Vital Signs Temp 96.9 F 03/07/22 07:40 Pulse 57 03/07/22 08:17 Resp 18 03/07/22 08:17 BP 141/68 H 03/07/22 07:40 Pulse Ox 96 03/07/22 07:40 BMI result Body Mass Index 25.1 Const: General: cooperative, comfortable, alert and awake Nutritional Appearance: average body habitus Orientation/consciousness: patient oriented x3 Resp: Effort & Inspection: normal respiratory effort and able to speak in complete sentences Cardio: Rate: regular rate Heart sounds: S1 normal heart sound present and S2 normal heart sound present GI: Inspection: No distended Palpation (GI): Soft to palpation and nontender Neuro: General: patient oriented x3 Extrem: Other: right foot with no significant erythema; ulcer base right 5th metatarsal DS: Data Data Completed and Pending Labs on day of discharge: Laboratory Results - last 24 hr 03/06/22 03/07/22 05:33 05:04 Creatinine 0.88 Estim Creat Clear Calc 60.4 Estimated GFR > 60 Total Creatine Kinase 93 Preliminary micro results at discharge 03/03/22 20:18 Blood Culture - Preliminary Blood - Venous No growth after 48 hours. 03/03/22 20:18 Blood Culture - Preliminary Blood - Venous No growth after 48 hours. Discharge Plan Discharge Patient Disposition: Home Health Service Discharge Diagnosis: osteomyelitis Referrals: [facility] [Other] - 1 Day (they are your provider for home iv antibioptic infusion and pic line flushes and all related supplies, the [facility] nurse will be out to proivde further teaching on thursday , she will proivde dressing changes weekly and lab draes as ordered ) dr reina smith [Other] - 1 Week (luis shi follow up for labs and follow up you have appointment for march 17 at 1;15 if you can not make this time please call to [facility]) Harman Connolly MD [Primary Care Provider] - 1 Week Karen Chambers MD [Physician] - 1 Week Discharge Medications: New daptomycin 500 mg Recon Soln 500 mg IV Q24H Qty: 1 0RF Continued budesonide-formoterol [Symbicort] 160-4.5 mcg/actuation HFA aerosol inhaler 2 puff inhalation Q12H Qty: 3 3RF citalopram 10 mg tablet 10 mg PO DAILY Qty: 90 1RF loratadine 10 mg tablet 10 mg PO DAILY PRN (Reason: Allergy Symptoms) 0RF cholecalciferol (vitamin D3) 1,250 mcg (50,000 unit) capsule 1,250 mcg PO MO 0RF albuterol sulfate [ProAir HFA] 90 mcg/actuation HFA aerosol inhaler 2 puff inhalation Q4H PRN (Reason: Shortness Of Breath) 0RF Spiriva Respimat 1.25 mcg/actuation mist 2 puff inhalation DAILY Qty: 3 3RF Held losartan 25 mg tablet 1 tab PO DAILY 0RF Hold Instructions: follow up with PCP to determine need to restart atorvastatin 40 mg tablet 40 mg PO DAILY 90 Days Qty: 90 3RF Hold Instructions: Hold for 6 weeks while taking daptomycin Discontinued doxycycline hyclate 100 mg capsule 100 mg PO BID 30 Days Qty: 60 1RF Discharge Orders: Discharge Order (Routine); Ordered 03/07/22 Ordered By: Mayte Mera Diet: advance to usual diet Activity on Discharge: As tolerated Stand Alone Forms: Patient Portal Discharge page Care Plan Goals: see below Health Concerns: osteomyelitis DASHAWN Plan of Treatment: Complete entire course of antibiotics as prescribed, Daptomycin, end date April 13 Do not take atorvastatin until after finishing daptomycin Call to schedule follow up with PCP to follow up blood pressure. Do not take losartan until you follow up. Call to schedule follow up appointment in the wound care center Assessment: see discharge summary Discharge Date/Time: 03/07/22 13:00
--- NOTE | 2022-03-07 11:27 | P.PICC_ITS ---
[facility]ICC Line [facility]ion [facility] Diagnosis: OSTEOMYELITIS Indication: [facility] IV ANTIBIOTICS Pertinent Labs: REVIEWED Technique: Following informed consent including risks, benefits and alternatives and using sterile technique including cap and mask, sterile gown, glove and drape, the RIGHT arm was prepped and draped in the usual sterile fashion of full barrier technique with G. Following completion of [place] Protocol the skin and soft tissues were anesthetized with 1% Lidocaine plain. Using ultrasound guidance, BASILIC vein access was obtained IN SINGLE ATTEMPT BY THIS RN; x1 UNSUCCESSFUL ATTEMPT TO RUE CEPHALIC VEIN, SO TOTAL x2 ATTEMPTS. Over an 0.018 wire through peel-away sheath, a 5-NIGERIAN, DOUBLE LUMEN, PASV PICC line was positioned. Catheter length is 37 CM internal length, 0 CM external length, for a total trimmed length of 37 CM. The procedure was performed in S-272. Tip verification was performed by Lorene Cheng with [facility] 3CG. Tip located in SVC. Ultrasound was used to document vein patency and for needle entry. A formal ultrasound picture and cardiac rhythm strip was recorded. [employer] has released the line for use and it is currently dressed with a StatLock, Tegaderm, and CHG disc. Verification has been performed for blood return and line patency. Arm Circumference: 27 CM Equipment: [employer] POWERPICC SOLO Catheter Type: 5 NIGERIAN, PASV, DOUBLE LUMEN Lot #: [id number]
[2022-03-07 11:32] VITALS: BP 121/52; PULSE 57; RESP 16; TEMP 36.4; O2SAT 96
[2022-03-07] MEDS: DAPTOmycin 500 MG in 0.9 % Sodium Chloride 50 ML 102.61 MG IV (11:47)
--- NOTE | 2022-03-07 11:58 | MHC.CM.PN ---
nurse child welfare caseworker note electronic medical record reviewed along with case disucssed onmultiple disciplianry rounds. patient will be discharged today , after picline placement confirmed and he recived one dose of daptomycin through his new pic line he will be discharge and patient is aware of this and he will; have [facility] nurse to reinforcement of iv abx teaching , and flush line , they will delicvver all abx and all related suoppliesfor the iv abx administration , pic line flushes and dressing chnages and lab draws. discharge plan home with family [email or web address] company for supplier of abx and all related supplies for pic line flushes , dressing changes and lab , [facility] nurse will come out to home tomotrrow am for reinforcement of iv abx [facility] FAMILY DR YULI DANIEL FOLLOW UP PER DICHARGED INSTRUCTIONS ALL PAPERWORK COMPLETED CASE DISCUSSED NBY7 TIGER THAT PATIENT WILL NEED TO RECIVE ONE DOSE OF ABX BEFORE HE LEAVES THROUGH HIS NEW PIC LINE
--- NOTE | 2022-03-07 12:39 | PM.PNGS ---
Subjective Subjective Date of Service: 03/07/22 Interval history: denies pain no new complaints PICC line placed Physical Exam Vital Signs: Vital Signs: Last Vital Signs Temp 97.6 F 03/07/22 11:32 Pulse 57 03/07/22 11:32 Resp 16 03/07/22 11:32 BP 121/52 L 03/07/22 11:32 Pulse Ox 96 03/07/22 11:32 BMI result Body Mass Index 25.1 Const: General: comfortable and no acute distress Resp: Effort & Inspection: normal respiratory effort Cardio: Rate: regular rate Extrem: Other: right foot - ulcer laterally, cellulitis and edema much improved Objective Data Active Medications Acetaminophen (Acetaminophen 325 Mg Tablet) 650 mg PO Q6H PRN PRN Reason: Pain, Mild (Pain Scale 1-3) Albuterol Sulfate (Albuterol Sulfate 90 Mcg 8 Gm Inhaler) 2 puff INHALE Q4H PRN PRN Reason: Shortness Of Breath Albuterol/Ipratropium (Albuterol/Iprat 2.5/0.5mg 3 Ml Ampul.Neb) 3 ml INHALE RQ4H PRN PRN Reason: Shortness of Breath/Wheezing Atorvastatin Calcium (Atorvastatin Calcium 40 Mg Tablet) 40 mg PO DAILY [facility] Last Admin: 03/07/22 09:23 Dose: 40 mg Documented by: RENNY Enoxaparin Sodium (Enoxaparin Sodium 40 Mg/0.4 Ml Syringe) 40 mg SUBCUT Q24H [facility] Last Admin: 03/06/22 23:09 Dose: 40 mg Documented by: JOSE Escitalopram Oxalate (Escitalopram Oxalate 5 Mg Tablet) 5 mg PO DAILY [facility] Last Admin: 03/07/22 09:23 Dose: 5 mg Documented by: RENNY Fluticasone/Vilanterol (Fluticasone/Vilanterol 200/25 Blst.W.Dev) 1 puff INHALE RDAILY [facility] Last Admin: 03/07/22 08:16 Dose: Not Given Documented by: NIKI Non-Admin Reason: Med Not Available Daptomycin 500 mg/ Sodium (Chloride) 60 mls @ 102.613 mls/hr IV Q24H [facility] Last Infusion: 03/07/22 12:26 Dose: 0 mls/hr Documented by: COTEMA Loratadine (Loratadine 10 Mg Tablet) 10 mg PO DAILY PRN PRN Reason: Allergy Symptoms Melatonin (Melatonin 3 Mg Tablet) 6 mg PO BEDTIME PRN PRN Reason: Insomnia Last Admin: 03/04/22 00:51 Dose: 6 mg Documented by: OTONIEL Pharmacy Consult (Consult Rx Perform Med Rec) 1 each MISCELLANE ONCE PRN PRN Reason: Consult order Pharmacy Consult (Consult Rx Vancomycin Dosing) 1 each MISCELLANE DAILY PRN PRN Reason: Consult order Senna (Sennosides 8.6 Mg Tablet) 17.2 mg PO BEDTIME PRN PRN Reason: Constipation Sodium Chloride (0.9 % Sodium Chloride Flush 3 Ml Syringe) 3 ml IVFLUSH QSHIFT [facility] Last Admin: 03/07/22 09:23 Dose: 3 ml Documented by: RENNY Sodium Chloride (0.9 % Sodium Chloride Flush 10 Ml Syringe) 5 ml IVFLUSH TID JED Tiotropium [place] (Tiotropium [place] 18 Mcg Cap.W.Dev) 1 puff INHALE RDAILY [facility] Last Admin: 03/07/22 08:15 Dose: 1 puff Documented by: NIKI Labs CBC & Chem 7: 03/05/22 07:24 03/07/22 05:04 Labs: Laboratory Results - last 24 hr 03/06/22 03/07/22 05:33 05:04 Estim Creat Clear Calc 60.4 Estimated GFR > 60 Total Creatine Kinase 93 Procedures Date of Service Date of Service: 03/07/22 Progress Note: A&P Assessment and plan (1) Osteomyelitis: Status: Acute Assessment and Plan: dressings changed ok to dressing changes daily w/dry gauze,Tra roll he does not want amputation for now IV abx via PICC [place] Time Spent With Patient Time: Total time spent is greater than 50% in coordination of care (as documented) at patient's floor/unit and/or counseling patient: Quality Stroke Does the patient have a stroke diagnosis?: No VTE Prior VTE?: No VTE Risk Level:: Medical - moderate - high VTE Device Contraindication: Treatment Not Indicated VTE Drug Contraindication: N/A - Med Ordered
== END 2022-03-07 13:00 | disposition home health service (06) | DRG 383 ==
LOC: HO.ED 20:30 → HO.EDOVER 23:51 → HO.S3 03-05 21:06
PROVIDERS: Student in an Organized Health Care Education/Training Program; Admitting Provider Hospitalist; Emergency Provider Emergency Medicine; PCP Internal Medicine; Visit Provider Physician Assistant Medical
DX: L03.115 Cellulitis of right lower limb (principal); N17.9 Acute kidney failure, unspecified; M86.171 Other acute osteomyelitis, right ankle and foot; L97.512 Non-pressure chronic ulcer of other part of right foot with fat layer exposed; I12.9 Hypertensive chronic kidney disease with stage 1 through stage 4 chronic kidney disease, or unspecified chronic kidney disease; N18.2 Chronic kidney disease, stage 2 (mild); E87.5 Hyperkalemia; J44.9 Chronic obstructive pulmonary disease, unspecified; Z20.822 Contact with and (suspected) exposure to COVID-19; Z86.14 Personal history of Methicillin resistant Staphylococcus aureus infection; Z87.891 Personal history of nicotine dependence; Z79.899 Other long term (current) drug therapy
CPT/HCPCS: 36415; 36573; 73630; 80048; 80202; 81001; 82550; 82565; 83605; 84300; 85025; 85027; 85652; 86140; 87040; 87635; 96365; 96375; 99285; C1751; C1894; J0878; J1650; J2543; J3370

== ENCOUNTER 2022-03-31 16:07 | Inpatient (IN) | payer OTHER, SELFPAY ==
--- NOTE | ~2022-03-31 | XR_ITS ---
EXAMINATION: XR FOOT, RIGHT CLINICAL INFORMATION: Concern for osteomyelitis COMPARISON: Right foot radiographs 03/03/2022 TECHNIQUE: AP, lateral, and oblique views of the right foot. FINDINGS: Since the prior exam, there is been a dramatic change in appearances. The entire fifth metatarsal head is gone and the base of the proximal phalanx is destroyed. There is defect seen in the soft tissues with faint calcifications present in the gap between the destroyed or absent metatarsal head and the phalangeal base. Findings are certainly compatible with osteomyelitis. Please correlate with prior surgical history of bone resection. No other abnormality is seen. A cyst is seen in the left ventricular. XR/XR foot RT 2V IMPRESSION: New bony destruction at the base of the fifth proximal phalanx and the fifth metatarsal head. Findings are certainly compatible with osteomyelitis.
[2022-03-31 16:11] VITALS: BP 123/63; PULSE 96; RESP 20; TEMP 36.9; O2SAT 96; BMI 26.6
--- NOTE | 2022-03-31 19:38 | ED_ITS ---
HPI - Wound/Laceration General Chief Complaint: Wound/Laceration Stated Complaint: R Foot Open Wound Time Seen by Provider: 03/31/22 19:22 Source: patient Mode of arrival: wheelchair Limitations: no limitations History of Present Illness HPI narrative: Patient comes to the emergency room from the wound clinic. Patient was discharged from this hospital on 03/07/2022 with the diagnosis of osteomyelitis. Patient has a PICC line. Family reports that he was doing very well on vancomycin. Unfortunately patient had acute kidney injury, his antibiotic was switched to daptomycin, then recently switched to ceftriaxone. Today when he went to the Wound Clinic, he was asked to return to the emergency room since the osteomyelitis is worsening. Patient denies fever or chills, no pain his foot Related Data Home Medications Medication Instructions Recorded Confirmed albuterol sulfate 90 mcg/actuation 2 puff INHALATION Q4H PRN 08/06/20 03/19/22 aerosol inhaler (ProAir HFA) cholecalciferol (vitamin D3) 1,250 1,250 mcg PO MO 08/06/20 03/19/22 mcg (50,000 unit) capsule loratadine 10 mg tablet 10 mg PO DAILY PRN 03/03/22 03/19/22 losartan 25 mg tablet 1 tab PO DAILY 03/03/22 03/19/22 Previous Rx's Medication Instructions Recorded budesonide-formoterol HFA 160 2 puff INHALATION Q12H #3 ea 06/06/21 mcg-4.5 mcg/actuation aerosol inhaler (Symbicort) atorvastatin 40 mg tablet 40 mg PO DAILY 90 Days #90 tab 08/13/21 tiotropium bromide 1.25 2 puff INHALATION DAILY #3 ea 08/13/21 mcg/actuation mist for inhalation (Spiriva Respimat) citalopram 10 mg tablet 10 mg PO DAILY #90 tab 11/27/21 daptomycin 500 mg intravenous 500 mg IV Q24H #1 ea 03/07/22 solution diclofenac sodium 1 % topical gel 4 g TOPICAL QID #100 g 03/19/22 (Voltaren Arthritis Pain) ceftriaxone 1 gram solution for 1 g IV DAILY 23 Days #23 ea 03/21/22 injection metronidazole 375 mg capsule 375 mg PO BID 14 Days #28 cap 03/21/22 (Flagyl) Allergies Allergy/AdvReac Type Severity Reaction Status Date / Time No Known Allergies Allergy Verified 03/19/22 15:09 Review of Systems Review of Systems: Constitutional : No Weight loss, No Fever, No Chills, No Night Sweats, No Fatigue, No Malaise ENT/Mouth : No Hearing loss, No Ear Pain, No Nasal Congestion, No Sinus Pain, No Hoarseness, No sore throat, No Rhinorrhea, No Swallowing Difficulty Eyes: No Eye Pain, No Swelling, No Redness, No Foreign Body, No Discharge, No Vision Changes Cardiovascular : No Chest Pain, No SOB, No Dyspnea on Exertion, No Orthopnea, No Edema, No Palpitations Respiratory : No Cough, No Sputum, No Wheezing, No Smoke Exposure, No Dyspnea Gastrointestinal : No Nausea, No Vomiting, No Diarrhea, No Constipation, No abdominal Pain, No Hematochezia, No Melena Genitourinary : no irregular bleeding, No Dysuria, No Urinary Frequency, No Hematuria, No Urinary Incontinence, No Urgency, No Flank Pain, No Urinary Flow Changes, No Hesitancy Musculoskeletal : No pain in the lateral aspect of the foot, worsening wound Skin : No Skin Lesions, No rash Neuro : No Weakness, No Numbness, No Paresthesias, No Loss of Consciousness, No Dizziness, No Headache Psych : No Anxiety/Panic, No Depression, No SI/HI/AH/VH, No Social Issues, Heme/Lymph: No Bruising, No Bleeding,No Lymphadenopathy Endocrine : No Polyuria, No Polydipsia, No Temperature Intolerance [facility] Past Medical History Medical History Anemia COPD (chronic obstructive pulmonary disease) Hypercholesterolemia Hypertension Insomnia Osteomyelitis Vitamin B12 deficiency Surgical History History of cataract surgery History of open reduction and internal fixation (ORIF) procedure Family History Family History Father Cancer Mother Cancer Social History Social History Household Members: Spouse Housing: House Alcohol intake: never Patient Tobacco Use Status: Former Tobacco user Tobacco use type: Cigarette e-Cigarette/Vaping Use: Never Used Second Hand Smoke Exposure: No Advance Directives: No Advance Directives Information Provided: No Advance Directives Date on File: 03/03/22 service: No Current occupational status: retired Cognitive needs: No Hearing needs: No Vision needs: No Physical Exam Vital Signs: Vital Signs: Last Vital Signs Temp 97.7 F 03/31/22 20:15 Pulse 78 03/31/22 20:15 Resp 20 03/31/22 20:15 BP 163/84 H 03/31/22 20:15 Pulse Ox 95 03/31/22 20:15 BMI result Body Mass Index 26.6 Const: Other: Appearance: Alert. Oriented X3. No acute distress. Eyes: Pupils equal, round and reactive to light. ENT: Pharynx normal. Neck: Normal inspection. Neck supple. No lymph nodes noted. No crepitus CVS: Normal heart rate and rhythm. Pulses normal. Normal S1 and S2 Respiratory: No respiratory distress. Breath sounds normal. No Wheezing. No rales Abdomen: Soft and nontender. No rigidity. No distention. Skin: Skin warm and dry. Patient has had deep wound to the lateral aspect of the right foot, see pictures below Extremities: No lower extremity edema. Neuro: Oriented X 3. No motor deficit. No sensory deficit. Moving all extremities. No slurred speech. CN 2 through 12 grossly intact Psych: calm, cooperative, normal affect Course Course Course Narrative: At this time, 20:55, patient's lab and x-rays have returned. Seems that the osteomyelitis is worsening. Patient has been started on vancomycin and Zosyn. Tomorrow he will need a infectious disease consult and also Dr. Ernst has been following him. And agrees with the plan of staying in the hospital. Of note, patient will need a PICC line changed tomorrow, he is due for a line change per patient's family. I discussed the patient with Dr. Alexander, patient being admitted. MDM - Wound/Laceration Lab Data Result diagrams: 03/31/22 20:00 03/31/22 20:00 Labs: Lab Results 03/31/22 03/31/22 03/31/22 Range/Units 20:00 20:00 20:00 WBC 11.6 H (4.8-10.8) X10*3/uL RBC 3.57 L (4.60-5.80) X10*6/uL Hgb 10.5 L (14.0-18.0) g/dl Hct 33.3 L (42.0-52.0) % MCV 93.3 (80.0-98.0) fL MCH 29.4 (27.0-33.0) pg MCHC 31.5 (31.0-36.0) g/dl RDW 13.7 (11.0-16.0) % Plt Count 451 H D (160-400) X10*3/uL MPV 8.6 L (9.4-12.4) fL Immature Gran % (Auto) 3.0 H (0.0-0.4) % Neut % (Auto) 74.0 H (45-73) % Lymph % (Auto) 10.7 L (20-40) % [place] % (Auto) 8.0 (2-11) % Eos % (Auto) 3.8 (0-4) % Baso % (Auto) 0.5 (0-2) % Lymph # (Auto) 1.3 (1.2-4.9) X10*3/uL [place] # (Auto) 0.9 (0.1-1.2) X10*3/uL Eos # (Auto) 0.4 (0.0-0.4) X10*3/uL Baso # (Auto) 0.1 (0.0-0.2) X10*3/uL Abs Immat Gran (auto) 0.35 H (0.00-0.03) X10*3/uL Absolute Neuts (auto) 8.6 H (2.0-8.3) x10*3/uL Absolute Nucleated RBC 0.000 (0.0-0.012) X10*3/uL Nucleated RBC % (auto) 0.0 (0.0-0.2) /100WBC Sodium 140 (135-145) mmol/L Potassium 4.3 (3.3-5.1) mmol/L Chloride 101 (96-108) mmol/L Carbon Dioxide 24 (22-29) mmol/L Anion Gap 19 (12-20) BUN 16 (9-16) mg/dL Creatinine 0.85 (0.5-1.4) mg/dL Estim Creat Clear Calc 62.5 Estimated GFR > 60 Random Glucose 101 (60-115) mg/dL Lactic Acid 2.9 H* (0.5-2.0) mmol/L Calcium 8.7 (8.4-10.2) mg/dL Total Bilirubin 0.3 (0.0-1.0) mg/dL Direct Bilirubin 0.2 (0.0-0.5) mg/dL AST 29 D (5-37) U/L ALT 35 (0-40) U/L Alkaline Phosphatase 96 D (39-117) U/L C-Reactive Protein 10.61 H (< or = 0.50) mg/dL Total Protein 6.9 (6.5-8.0) g/dL Albumin 3.6 (3.5-5.0) g/dL COVID-19 (ROBY) (Negative) COVID-19 Clin Com 03/31/22 Range/Units 20:00 WBC (4.8-10.8) X10*3/uL RBC (4.60-5.80) X10*6/uL Hgb (14.0-18.0) g/dl Hct (42.0-52.0) % MCV (80.0-98.0) fL MCH (27.0-33.0) pg MCHC (31.0-36.0) g/dl RDW (11.0-16.0) % Plt Count (160-400) X10*3/uL MPV (9.4-12.4) fL Immature Gran % (Auto) (0.0-0.4) % Neut % (Auto) (45-73) % Lymph % (Auto) (20-40) % [place] % (Auto) (2-11) % Eos % (Auto) (0-4) % Baso % (Auto) (0-2) % Lymph # (Auto) (1.2-4.9) X10*3/uL [place] # (Auto) (0.1-1.2) X10*3/uL Eos # (Auto) (0.0-0.4) X10*3/uL Baso # (Auto) (0.0-0.2) X10*3/uL Abs Immat Gran (auto) (0.00-0.03) X10*3/uL Absolute Neuts (auto) (2.0-8.3) x10*3/uL Absolute Nucleated RBC (0.0-0.012) X10*3/uL Nucleated RBC % (auto) (0.0-0.2) /100WBC Sodium (135-145) mmol/L Potassium (3.3-5.1) mmol/L Chloride (96-108) mmol/L Carbon Dioxide (22-29) mmol/L Anion Gap (12-20) BUN (9-16) mg/dL Creatinine (0.5-1.4) mg/dL Estim Creat Clear Calc Estimated GFR Random Glucose (60-115) mg/dL Lactic Acid (0.5-2.0) mmol/L Calcium (8.4-10.2) mg/dL Total Bilirubin (0.0-1.0) mg/dL Direct Bilirubin (0.0-0.5) mg/dL AST (5-37) U/L ALT (0-40) U/L Alkaline Phosphatase (39-117) U/L C-Reactive Protein (< or = 0.50) mg/dL Total Protein (6.5-8.0) g/dL Albumin (3.5-5.0) g/dL COVID-19 (ROBY) Negative (Negative) COVID-19 Clin Com See Note Imaging Data Foot x-ray: Radiologist's impression: FINDINGS: Since the prior exam, there is been a dramatic change in appearances. The entire fifth metatarsal head is gone and the base of the proximal phalanx is destroyed. There is defect seen in the soft tissues with faint calcifications present in the gap between the destroyed or absent metatarsal head and the phalangeal base. Findings are certainly compatible with osteomyelitis. Please correlate with prior surgical history of bone resection. No other abnormality is seen. A cyst is seen in the left ventricular. XR/XR foot RT 2V IMPRESSION: New bony destruction at the base of the fifth proximal phalanx and the fifth metatarsal head. Findings are certainly compatible with osteomyelitis. Discharge Plan Discharge Clinical Impression: Osteomyelitis Patient Disposition: Admitted As Inpatient Prescriptions: No Action budesonide-formoterol [Symbicort] 160-4.5 mcg/actuation HFA aerosol inhaler 2 puff inhalation Q12H Qty: 3 3RF citalopram 10 mg tablet 10 mg PO DAILY Qty: 90 1RF ceftriaxone 1 gram recon soln 1 g IV DAILY 23 Days Qty: 23 0RF metronidazole [Flagyl] 375 mg capsule 375 mg PO BID 14 Days Qty: 28 0RF losartan 25 mg tablet 1 tab PO DAILY 0RF Hold Instructions: follow up with PCP to determine need to restart loratadine 10 mg tablet 10 mg PO DAILY PRN (Reason: Allergy Symptoms) 0RF daptomycin 500 mg Recon Soln 500 mg IV Q24H Qty: 1 0RF cholecalciferol (vitamin D3) 1,250 mcg (50,000 unit) capsule 1,250 mcg PO MO 0RF albuterol sulfate [ProAir HFA] 90 mcg/actuation HFA aerosol inhaler 2 puff inhalation Q4H PRN (Reason: Shortness Of Breath) 0RF diclofenac sodium [Voltaren Arthritis Pain] 1 % gel 4 g topical QID Qty: 100 2RF Rx Instructions: apply to single knee, ankle, foot; for foot includes sole/toes/top of foot atorvastatin 40 mg tablet 40 mg PO DAILY 90 Days Qty: 90 3RF Hold Instructions: Hold for 6 weeks while taking daptomycin Spiriva Respimat 1.25 mcg/actuation mist 2 puff inhalation DAILY Qty: 3 3RF
[2022-03-31 20:07] LABS: MANUAL DIFF FLAG NO
[2022-03-31 20:15] VITALS: BP 163/84; PULSE 78; RESP 20; TEMP 36.5; O2SAT 95
[2022-03-31 20:16] LABS: Basophils Absolute Auto 0.1 X10*3/uL (0.0-0.2); Basophils Percent Auto 0.5 % (0-2); Eosinophils Absolute Auto 0.4 X10*3/uL (0.0-0.4); Eosinophils Percent Auto 3.8 % (0-4); Hematocrit 33.3 % (42.0-52.0); Hemoglobin 10.5 g/dl (14.0-18.0); Imm Gran Abs Auto 0.35 X10*3/uL (0.00-0.03); Lymphocytes Absolute Auto 1.3 X10*3/uL (1.2-4.9); Lymphocytes Percent Auto 10.7 % (20-40); Mean Corpuscular HGB Conc 31.5 g/dl (31.0-36.0); Mean Corpuscular Hemoglobin 29.4 pg (27.0-33.0); Mean Corpuscular Volume 93.3 fL (80.0-98.0); Mean Platelet Volume 8.6 fL (9.4-12.4); Monocytes Absolute Auto 0.9 X10*3/uL (0.1-1.2); Neutrophils Absolute Auto 8.6 x10*3/uL (2.0-8.3); Platelet Count 451 X10*3/uL (160-400); Red Blood Count 3.57 X10*6/uL (4.60-5.80); Red Cell Distribution Width 13.7 % (11.0-16.0); White Blood Count 11.6 X10*3/uL (4.8-10.8)
[2022-03-31 20:26] LABS: Lactic Acid 2.9 mmol/L (0.5-2.0)
[2022-03-31 20:34] LABS: Alanine Aminotransferase 35 U/L (0-40); Albumin Level 3.6 g/dL (3.5-5.0); Alkaline Phosphatase 96 U/L (39-117); Anion Gap 19 (12-20); Aspartate Amino Transferase 29 U/L (5-37); Bilirubin Direct 0.2 mg/dL (0.0-0.5); Bilirubin Total 0.3 mg/dL (0.0-1.0); Blood Urea Nitrogen 16 mg/dL (9-16); C Reactive Protein 10.61 mg/dL (< or = 0.50); Calcium 8.7 mg/dL (8.4-10.2); Carbon Dioxide 24 mmol/L (22-29); Chloride 101 mmol/L (96-108); Creatinine Clr Calc Pharmacy 62.5; Estimated Glomerular Filt Rate > 60; Glucose Random 101 mg/dL (60-115); Potassium 4.3 mmol/L (3.3-5.1); Sodium 140 mmol/L (135-145); Total Protein 6.9 g/dL (6.5-8.0)
[2022-03-31 20:44] LABS: COVID-19 Test Negative (Negative)
--- NOTE | 2022-03-31 20:53 | PM.IMHP ---
History of Present Illness Date of Service: 03/31/22 Chief Complaint: Worsening foot wound 82-year-old male with a past medical history of hypertension, hyperlipidemia, COPD, anemia, vitamin B12 deficiency, chronic right foot ulcer/osteomyelitis; discharged on 03/07/2022 with a PICC line for 6 weeks of antibiotics. Presented back today with a chief complaint of worsening right foot wound. Patient reported that he was on daptomycin as outpatient, receiving via PICC line. But he could not tolerate daptomycin and subsequently changed to ceftriaxone by Dr. Hooper; patient mentioned he also saw Dr. Ernst in the surgery clinic. Today when he went to the wound clinic he was told that his wound is worsening and Jw to go to the ER for further evaluation. Patient mentioned that he has been complaint with his medications. Denies any fevers and chills. Denies any chest pain palpitations lightheadedness or dizziness. Denies any GI symptoms. Review of all other systems is negative except mentioned above ER course: Per ER team patient x-ray showed new bony destruction; patient continued on antibiotics. Admitted for further management. [facility] Medical History Anemia COPD (chronic obstructive pulmonary disease) Hypercholesterolemia Hypertension Insomnia Osteomyelitis Vitamin B12 deficiency Family History Father Cancer Mother Cancer Surgical History History of cataract surgery History of open reduction and internal fixation (ORIF) procedure Social History Household Members: Spouse Housing: House Alcohol intake: never Patient Tobacco Use Status: Former Tobacco user Tobacco use type: Cigarette e-Cigarette/Vaping Use: Never Used Second Hand Smoke Exposure: No Advance Directives: No Advance Directives Information Provided: No Advance Directives Date on File: 03/03/22 service: No Current occupational status: retired Cognitive needs: No Hearing needs: No Vision needs: No Meds Allergies Allergy/AdvReac Type Severity Reaction Status Date / Time No Known Allergies Allergy Verified 03/19/22 15:09 Active Medications: Current Medications Vancomycin HCl 750 mg/ Sodium (Chloride) 265 mls @ 265 mls/hr IV ONCE ONE Stop: 03/31/22 21:47 Piperacillin Sod/Tazobactam (Sod 3.375 gm/ Sodium Chloride) 50 mls @ 100 mls/hr IV ONCE ONE Stop: 03/31/22 21:17 Sodium Chloride (Ns) 1,000 mls @ 999 mls/hr IVCONT .Q1H1M ONE Stop: 03/31/22 21:49 Pharmacy Consult (Consult Rx Vancomycin Dosing) 1 each MISCELLANE DAILY PRN PRN Reason: Consult order Home Medications Medication Instructions Recorded Confirmed Last Taken Type albuterol sulfate 90 mcg/actuation 2 puff INHALATION Q4H PRN 08/06/20 03/19/22 Unknown History aerosol inhaler (ProAir HFA) cholecalciferol (vitamin D3) 1,250 1,250 mcg PO MO 08/06/20 03/19/22 02/24/22 History mcg (50,000 unit) capsule loratadine 10 mg tablet 10 mg PO DAILY PRN 03/03/22 03/19/22 Unknown History losartan 25 mg tablet 1 tab PO DAILY 03/03/22 03/19/22 03/02/22 History Physical Exam Vital Signs and Narrative: Vital Signs: Last Vital Signs Temp 97.7 F 03/31/22 20:15 Pulse 78 03/31/22 20:15 Resp 20 03/31/22 20:15 BP 163/84 H 03/31/22 20:15 Pulse Ox 95 03/31/22 20:15 BMI result Body Mass Index 26.6 Gen: Appears be in no acute distress HEENT: NCAT, Moist mucosa. Pulmonary: Vesicular breath sounds, fair air entry CVS: Normal S1-S2 Abdomen: BS+, Soft, Nontender Extremities: Warm well perfused Neuro: Alert and awake. Results Labs CBC and Chem 7: 03/31/22 20:00 03/31/22 20:00 Labs: Laboratory Results - last 24 hr 03/31/22 03/31/22 03/31/22 20:00 20:00 20:00 MCV 93.3 MCH 29.4 MCHC 31.5 RDW 13.7 Plt Count 451 H D MPV 8.6 L Immature Gran % (Auto) 3.0 H Neut % (Auto) 74.0 H Lymph % (Auto) 10.7 L [place] % (Auto) 8.0 Eos % (Auto) 3.8 Baso % (Auto) 0.5 Lymph # (Auto) 1.3 [place] # (Auto) 0.9 Eos # (Auto) 0.4 Baso # (Auto) 0.1 Abs Immat Gran (auto) 0.35 H Absolute Neuts (auto) 8.6 H Absolute Nucleated RBC 0.000 Nucleated RBC % (auto) 0.0 Anion Gap 19 Estim Creat Clear Calc 62.5 Estimated GFR > 60 Random Glucose 101 Lactic Acid 2.9 H* Calcium 8.7 Total Bilirubin 0.3 Direct Bilirubin 0.2 AST 29 D ALT 35 Alkaline Phosphatase 96 D C-Reactive Protein 10.61 H Total Protein 6.9 Albumin 3.6 COVID-19 (ROBY) COVID-19 Clin Com 03/31/22 20:00 MCV MCH MCHC RDW Plt Count MPV Immature Gran % (Auto) Neut % (Auto) Lymph % (Auto) [place] % (Auto) Eos % (Auto) Baso % (Auto) Lymph # (Auto) [place] # (Auto) Eos # (Auto) Baso # (Auto) Abs Immat Gran (auto) Absolute Neuts (auto) Absolute Nucleated RBC Nucleated RBC % (auto) Anion Gap Estim Creat Clear Calc Estimated GFR Random Glucose Lactic Acid Calcium Total Bilirubin Direct Bilirubin AST ALT Alkaline Phosphatase C-Reactive Protein Total Protein Albumin COVID-19 (ROBY) Negative COVID-19 Clin Com See Note Imaging Radiologist's Impressions: Impressions Foot X-Ray 03/31/22 19:50 IMPRESSION: New bony destruction at the base of the fifth proximal phalanx and the fifth metatarsal head. Findings are certainly compatible with osteomyelitis. Assessment and Plan (1) Osteomyelitis: Status: Acute Plan 82-year-old male with a past medical history of hypertension, hyperlipidemia, COPD, anemia, vitamin B12 deficiency, chronic right foot ulcer/osteomyelitis; discharged on 03/07/2022 with a PICC line for 6 weeks of antibiotics. Presented back today with a chief complaint of worsening right foot wound. Noted to have new bony destruction/osteomyelitis. Admitted for further management. Right foot osteomyelitis: Patient was discharged on 03/07/2022 with a PICC line on daptomycin. As patient could not tolerate daptomycin-antibiotic was changed to ceftriaxone. Currently presented worsening right foot wound. X-ray showed new bony destruction at the base of the 5th proximal phalanx and 5th metatarsal head-consistent with osteomyelitis Continue ceftriaxone Id consult for further recommendations Will also consult General surgery IV access: Patient has PICC line-inserted on 03/07/2022. Plan to be changed on 04/01/2022. History of hypertension/hyperlipidemia: Continue home losartan/statin. History of COPD: Stable. 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 DVT prophylaxis: Lovenox Code status: Full code Quality Stroke Does the patient have a stroke diagnosis?: No VTE Prior VTE?: No VTE Risk Level:: Medical - moderate - high VTE Device Contraindication: Treatment Not Indicated VTE Drug Contraindication: N/A - Med Ordered
[2022-03-31] MEDS: Piperacillin Sodium/Tazobactam 3.375 GM in 0.9 % Sodium Chloride 50 ML IV (20:55)
[2022-03-31] MEDS: 0.9 % Sodium Chloride 1,000 ML 999 ML IVCONT (21:00)
[2022-03-31 21:21] LABS: Erythrocyte Sedimentation Rate 97 MM/HR (0-15)
--- NOTE | 2022-03-31 21:29 | PHA.MEDREC ---
Pharmacy Consult ? Medication Reconciliation Pharmacy has completed the medication reconciliation. Pt's at bedside, confirm medications.
[2022-03-31] MEDS: cefTRIAXone sodium 2 GM in 0.9 % Sodium Chloride 50 ML IV (21:42)
[2022-03-31 22:04] LABS: Reflex Lactate? Lactic Acid Added
[2022-03-31] MEDS: vancomycin HCL 750 MG in 0.9 % Sodium Chloride 250 ML 265 MG IV (22:17)
[2022-03-31] MEDS: Enoxaparin Sodium 40 MG/0.4 ML SYRINGE SUBCUT (22:20)
[2022-03-31 22:34] LABS: ~Lactic Acid-LAB USE ONLY 1.3 mmol/L (0.5-2.0)
--- NOTE | 2022-03-31 22:52 | MHC.CM.PN ---
IMM 03/31. HCP reviewed, completed and signed. Copies given. Uploaded into [facility] and [facility] Expanse. HCP/ Isabelle Brown ([phone]). Vax/boosted x1/Pfizer. Uses cane/walker. Osteomyelitis. Currently has services with [facility]. Pt and family very pleased with agency. Return referral placed. Pt has both HNE and Medicare A. is employed. D/C plan is home with resumption of [facility]. to transport home. CM to follow for d/c needs.
[2022-04-01] VITALS (8 sets, daily range): BP systolic 94–139; BP diastolic 43–66; PULSE 60–84; RESP 16–20; TEMP 36.2–36.7; O2SAT 94–95
[2022-04-01] MEDS: 0.9 % Sodium Chloride Flush 3 ML SYRINGE IVFLUSH ×4 (01:36→23:57)
[2022-04-01 06:08] LABS: MANUAL DIFF FLAG NO
[2022-04-01 06:13] LABS: Basophils Absolute Auto 0.1 X10*3/uL (0.0-0.2); Basophils Percent Auto 0.6 % (0-2); Eosinophils Absolute Auto 0.5 X10*3/uL (0.0-0.4); Eosinophils Percent Auto 5.7 % (0-4); Hematocrit 27.2 % (42.0-52.0); Hemoglobin 8.6 g/dl (14.0-18.0); Imm Gran Abs Auto 0.25 X10*3/uL (0.00-0.03); Lymphocytes Absolute Auto 1.3 X10*3/uL (1.2-4.9); Lymphocytes Percent Auto 15.6 % (20-40); Mean Corpuscular HGB Conc 31.6 g/dl (31.0-36.0); Mean Corpuscular Hemoglobin 29.3 pg (27.0-33.0); Mean Corpuscular Volume 92.5 fL (80.0-98.0); Mean Platelet Volume 8.8 fL (9.4-12.4); Monocytes Absolute Auto 0.8 X10*3/uL (0.1-1.2); Monocytes Percent Auto 9.8 % (2-11); Neutrophils Absolute Auto 5.5 x10*3/uL (2.0-8.3); Neutrophils Percent Auto 65.3 % (45-73); Platelet Count 384 X10*3/uL (160-400); Red Blood Count 2.94 X10*6/uL (4.60-5.80); Red Cell Distribution Width 13.8 % (11.0-16.0); White Blood Count 8.4 X10*3/uL (4.8-10.8)
[2022-04-01 06:38] LABS: Anion Gap 10 (12-20); Blood Urea Nitrogen 15 mg/dL (9-16); Calcium 7.8 mg/dL (8.4-10.2); Carbon Dioxide 26 mmol/L (22-29); Chloride 107 mmol/L (96-108); Estimated Glomerular Filt Rate > 60; Glucose Random 105 mg/dL (60-115); Potassium 4.4 mmol/L (3.3-5.1); Sodium 139 mmol/L (135-145)
[2022-04-01] MEDS: Atorvastatin Calcium 40 MG TABLET PO (08:50)
[2022-04-01] MEDS: Escitalopram Oxalate 5 MG TABLET PO (08:51)
--- NOTE | 2022-04-01 10:10 | HO.PM.IMPN ---
Subjective Subjective Date of Service: 04/01/22 Interval History: Laying in bed, feels comfortable, wound covered with dressing Denies any fever, chills or pain in the foot No reported other overnight events. Systemic review: No fever, chills or weakness No chest pain, palpitation No shortness of breath or coughing No abdominal pain, nausea or vomiting No urinary symptoms Worsening foot ulcer Physical Exam Vital Signs: Vital Signs: Last Vital Signs Temp 97.2 F 04/01/22 07:17 Pulse 64 04/01/22 07:17 Resp 19 04/01/22 07:17 BP 130/66 04/01/22 07:17 Pulse Ox 94 04/01/22 07:17 BMI result Body Mass Index 26.6 Const: Other: Appearance: Alert. Oriented X3. No acute distress. Eyes: Pupils equal, round and reactive to light. ENT: Pharynx normal. Neck: Normal inspection. Neck supple. No lymph nodes noted. No crepitus CVS: Normal heart rate and rhythm. Pulses normal. Normal S1 and S2 Respiratory: No respiratory distress. Breath sounds normal. No Wheezing. No rales Abdomen: Soft and nontender. No rigidity. No distention. Skin: Skin warm and dry. Patient has had deep wound to the lateral aspect of the right foot, deep to the bone, see pictures below Extremities: No lower extremity edema. Neuro: Oriented X 3. No motor deficit. No sensory deficit. Moving all extremities. No slurred speech. CN 2 through 12 grossly intact Psych: calm, cooperative, normal affect Objective Data Active Medications Acetaminophen (Acetaminophen 325 Mg Tablet) 650 mg PO Q6H PRN PRN Reason: Pain, Mild (Pain Scale 1-3) Albuterol/Ipratropium (Albuterol/Iprat 2.5/0.5mg 3 Ml Ampul.Neb) 3 ml INHALE RQ4H PRN PRN Reason: Shortness of Breath/Wheezing Atorvastatin Calcium (Atorvastatin Calcium 40 Mg Tablet) 40 mg PO DAILY [facility] Last Admin: 04/01/22 08:50 Dose: 40 mg Documented by: LENARD Enoxaparin Sodium (Enoxaparin Sodium 40 Mg/0.4 Ml Syringe) 40 mg SUBCUT Q24H [facility] Last Admin: 03/31/22 22:20 Dose: 40 mg Documented by: IVONE Escitalopram Oxalate (Escitalopram Oxalate 5 Mg Tablet) 5 mg PO DAILY [facility] Last Admin: 04/01/22 08:51 Dose: 5 mg Documented by: LENARD Hydromorphone HCl (Hydromorphone Hcl 1 Mg/Ml Syringe) 0.5 mg IVPUSH Q4H PRN; Protocol PRN Reason: Pain, Severe (Pain Scale 7-10) Ceftriaxone Sodium 2 gm/ (Sodium Chloride) 50 mls @ 100 mls/hr IV Q24H [facility] Last Infusion: 03/31/22 22:18 Dose: 0 mls/hr Documented by: IVONE Loratadine (Loratadine 10 Mg Tablet) 10 mg PO DAILY PRN PRN Reason: Allergy Symptoms Melatonin (Melatonin 3 Mg Tablet) 6 mg PO BEDTIME PRN PRN Reason: Insomnia Senna (Sennosides 8.6 Mg Tablet) 17.2 mg PO BEDTIME PRN PRN Reason: Constipation Sodium Chloride (0.9 % Sodium Chloride Flush 3 Ml Syringe) 3 ml IVFLUSH QSHIFT [facility] Last Admin: 04/01/22 08:50 Dose: 3 ml Documented by: LENARD Labs CBC & Chem 7: 04/01/22 05:34 04/01/22 05:34 Labs: Laboratory Results - last 24 hr 03/31/22 03/31/22 03/31/22 20:00 20:00 20:00 MCV 93.3 MCH 29.4 MCHC 31.5 RDW 13.7 Plt Count 451 H D MPV 8.6 L Immature Gran % (Auto) 3.0 H Neut % (Auto) 74.0 H Lymph % (Auto) 10.[address] [place] % (Auto) 8.0 Eos % (Auto) 3.8 Baso % (Auto) 0.5 Lymph # (Auto) 1.3 [place] # (Auto) 0.9 Eos # (Auto) 0.4 Baso # (Auto) 0.1 Abs Immat Gran (auto) 0.35 H Absolute Neuts (auto) 8.6 H Absolute Nucleated RBC 0.000 Nucleated RBC % (auto) 0.0 ESR 97 H Anion Gap 19 Estim Creat Clear Calc 62.5 Estimated GFR > 60 Random Glucose 101 Lactic Acid Lactic Acid F/U @ 2Hr Calcium 8.7 Total Bilirubin 0.3 Direct Bilirubin 0.2 AST 29 D ALT 35 Alkaline Phosphatase 96 D C-Reactive Protein 10.61 H Total Protein 6.9 Albumin 3.6 COVID-19 (ROBY) COVID-19 Clin Com 03/31/22 03/31/22 03/31/22 20:00 20:00 22:15 MCV MCH MCHC RDW Plt Count MPV Immature Gran % (Auto) Neut % (Auto) Lymph % (Auto) [place] % (Auto) Eos % (Auto) Baso % (Auto) Lymph # (Auto) [place] # (Auto) Eos # (Auto) Baso # (Auto) Abs Immat Gran (auto) Absolute Neuts (auto) Absolute Nucleated RBC Nucleated RBC % (auto) ESR Anion Gap Estim Creat Clear Calc Estimated GFR Random Glucose Lactic Acid 2.9 H* Lactic Acid F/U @ 2Hr 1.3 Calcium Total Bilirubin Direct Bilirubin AST ALT Alkaline Phosphatase C-Reactive Protein Total Protein Albumin COVID-19 (ROBY) Negative COVID-19 Clin Com See Note 04/01/22 04/01/22 05:34 05:34 MCV 92.5 MCH 29.3 MCHC 31.6 RDW 13.8 Plt Count 384 MPV 8.8 L Immature Gran % (Auto) 3.0 H Neut % (Auto) 65.3 Lymph % (Auto) 15.[address] [place] % (Auto) 9.8 Eos % (Auto) 5.7 H Baso % (Auto) 0.6 Lymph # (Auto) 1.3 [place] # (Auto) 0.8 Eos # (Auto) 0.5 H Baso # (Auto) 0.1 Abs Immat Gran (auto) 0.25 H Absolute Neuts (auto) 5.5 Absolute Nucleated RBC 0.000 Nucleated RBC % (auto) 0.0 ESR Anion Gap 10 L Estim Creat Clear Calc 69.0 Estimated GFR > 60 Random Glucose 105 Lactic Acid Lactic Acid F/U @ 2Hr Calcium 7.8 L D Total Bilirubin Direct Bilirubin AST ALT Alkaline Phosphatase C-Reactive Protein Total Protein Albumin COVID-19 (ROBY) COVID-19 Clin Com Assessment and Plan (1) Osteomyelitis: Status: Acute Plan 82-year-old male with a past medical history of hypertension, hyperlipidemia, COPD, anemia, vitamin B12 deficiency, chronic right foot ulcer/osteomyelitis; discharged on 03/07/2022 with a PICC line for 6 weeks of antibiotics. Presented back today with a chief complaint of worsening right foot wound. Noted to have new bony destruction/osteomyelitis. Admitted for further management. Right foot osteomyelitis discharged on 03/07/2022 with a PICC line on daptomycin. could not tolerate daptomycin-antibiotic was changed to ceftriaxone Currently presented worsening right foot wound. X-ray showed new bony destruction at the base of the 5th proximal phalanx and 5th metatarsal head-consistent with osteomyelitis And vancomycin and Continue ceftriaxone Pending ID evaluation Pending General surgery consult IV access Patient has PICC line-inserted on 03/07/2022 History of hypertension/hyperlipidemia Continue home losartan/statin. 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 DVT prophylaxis: Lovenox Patient will need overnight hospital stay for management of osteomyelitis with bone destruction pending ID, surgery consult to prevent possible decomposition into sepsis. Quality Stroke Does the patient have a stroke diagnosis?: No VTE Prior VTE?: No VTE Risk Level:: Medical - moderate - high VTE Device Contraindication: Treatment Not Indicated VTE Drug Contraindication: N/A - Med Ordered
--- NOTE | 2022-04-01 11:10 | PHA.PROG ---
Admission Date/Time: March 31, 2022 20:51 Indication: Right foot Osteomylitis Weight in k.843 kg Adjusted body weight in K.2 kg [place] body weight in K.8 kg Obesity Dosing Indication % IBW: 117% Serum Creatinine - Last 168 Hours 03/31/22 04/01/22 20:00 05:34 Creatinine 0.85 0.77 Estimated CrCl and GFR - Last 168 Hours 03/31/22 04/01/22 20:00 05:34 Estim Creat Clear Calc 62.5 69.0 Estimated GFR > 60 > 60 Vancomycin Loading Dose: N/A Current Vancomycin Dosing Regimen: 1500 mg Q24H Date and Time for next Vancomycin Level to be drawn: 04/03 @ 1400 Pharmacist Comments on Vancomycin Plan: First dose 750 mg (10 mg/kg) given in the ED 03/31 @ 2200. Patient did not receive an adequate loading dose for their weight. Will start maintenance dose in 18 hours to help load the patient. Vancomycin 1500 mg Q24H to begin 04/01 @ 1600. Expected AUC 457 with a trough of 12.2. Insight also predicts patient should be theraputic after 3rd dose (second 1500 mg dose). Vancomycin level to be drawn prior to 4th dose Pharmacy to continue monitor renal function daily. Jolie Pedro PharmD Vancomycin dosing will take advantage of [employer] as a clinical decision support tool that uses Bayesian modeling to calculate individual patient's pharmacokinetic parameters and forecast the patient's drug concentration time course with the target goal AUC 24 range of 400 - 600 mg/L/hr.
--- NOTE | 2022-04-01 11:48 | P.CONGS_ITS ---
History of Present Illness Consult details Consult date: 04/01/22 Narrative: 82-year-old male referred for osteomyelitis of the 5th toe. He was admitted yesterday for right foot ulcer with a known history of osteomyelitis. This apparently had been worsening as he is being [facility] I had seen him as an inpatient consult in the hospital a month ago for osteomyelitis of the 5th toe. He did not want any amputation and wanted to proceed with prolonged IV antibiotic treatment. He had been on daptomycin at home which was switched to ceftriaxone because of rising creatinine. He says told that the wound was worse yesterday and that there were bone fragments that were noted on the outside of the wound. He denies any severe pain. Denies any fever or chills. Review of Systems Constitutional: Constitutional: Denies chills and Denies fever(s) Cardiovascular: Cardiovascular: Denies chest pain, Denies dyspnea and Denies dyspnea on exertion Respiratory: Respiratory: Denies cough, Denies dyspnea and Denies dyspnea on exertion Gastrointestinal: Gastrointestinal: Denies hematochezia and Denies change in bowel habits Genitourinary: Genitourinary: Denies hematuria and Denies difficulty urinating Musculoskeletal: Musculoskeletal: Denies back pain and Denies limited range of motion Neurologic: Denies focal weakness and Denies convulsions Psychiatric: Psychiatric: Denies depression and Denies mood swings PMFSH Past Medical History Medical History Anemia COPD (chronic obstructive pulmonary disease) Hypercholesterolemia Hypertension Insomnia Osteomyelitis Vitamin B12 deficiency Family History Family History Father Cancer Mother Cancer Surgical History Surgical History History of cataract surgery History of open reduction and internal fixation (ORIF) procedure Social History Social History Household Members: Spouse Housing: House Do you presently have visiting nurse or other home services: No Alcohol intake: never Patient Tobacco Use Status: Former Tobacco user Tobacco use type: Cigarette e-Cigarette/Vaping Use: Never Used Second Hand Smoke Exposure: No Use of substances other than those prescribed or required for medical reasons: No Currently Displaying Signs/Symptoms of Drug Intoxication Withdrawal: No Have you been hit, kicked, punched, or otherwise hurt by someone within the past year? If so, by whom?: No Do you feel safe in your current relationship?: Yes Is there a partner from a previous relationship who is making you feel unsafe now?: No Are you made to feel afraid or neglected: No Advance Directives: No Advance Directives Information Provided: No Advance Directives Date on File: 03/03/22 Do you have thoughts of harming others: None Do you have a plan to hurt others: No Plan Recently lost weight without trying: No Eating poorly because of decreased appetite: Yes Nutrition Risks: No Nutritional Risk service: No Current occupational status: retired Cognitive needs: No Hearing needs: No Vision needs: No Meds Allergies Allergy/AdvReac Type Severity Reaction Status Date / Time No Known Allergies Allergy Verified 03/19/22 15:09 Active Medications: Current Medications Acetaminophen (Acetaminophen 325 Mg Tablet) 650 mg PO Q6H PRN PRN Reason: Pain, Mild (Pain Scale 1-3) Albuterol/Ipratropium (Albuterol/Iprat 2.5/0.5mg 3 Ml Ampul.Neb) 3 ml INHALE RQ4H PRN PRN Reason: Shortness of Breath/Wheezing Atorvastatin Calcium (Atorvastatin Calcium 40 Mg Tablet) 40 mg PO DAILY [facility] Last Admin: 04/01/22 08:50 Dose: 40 mg Documented by: Enoxaparin Sodium (Enoxaparin Sodium 40 Mg/0.4 Ml Syringe) 40 mg SUBCUT Q24H [facility] Last Admin: 03/31/22 22:20 Dose: 40 mg Documented by: Escitalopram Oxalate (Escitalopram Oxalate 5 Mg Tablet) 5 mg PO DAILY [facility] Last Admin: 04/01/22 08:51 Dose: 5 mg Documented by: Hydromorphone HCl (Hydromorphone Hcl 1 Mg/Ml Syringe) 0.5 mg IVPUSH Q4H PRN; Protocol PRN Reason: Pain, Severe (Pain Scale 7-10) Ceftriaxone Sodium 2 gm/ (Sodium Chloride) 50 mls @ 100 mls/hr IV Q24H [facility] Last Infusion: 03/31/22 22:18 Dose: Infused Documented by: Vancomycin HCl 1,500 mg/ (Sodium Chloride) 500 mls @ 333.333 mls/hr IV Q24H [facility] Loratadine (Loratadine 10 Mg Tablet) 10 mg PO DAILY PRN PRN Reason: Allergy Symptoms Melatonin (Melatonin 3 Mg Tablet) 6 mg PO BEDTIME PRN PRN Reason: Insomnia Pharmacy Consult (Consult Rx Vancomycin Dosing) 1 each MISCELLANE DAILY PRN PRN Reason: Consult order Senna (Sennosides 8.6 Mg Tablet) 17.2 mg PO BEDTIME PRN PRN Reason: Constipation Sodium Chloride (0.9 % Sodium Chloride Flush 3 Ml Syringe) 3 ml IVFLUSH QSHIFT [facility] Last Admin: 04/01/22 08:50 Dose: 3 ml Documented by: Home Medications Medication Instructions Recorded Confirmed Last Taken Type albuterol sulfate 90 mcg/actuation 2 puff INHALATION Q4H PRN 08/06/20 03/31/22 Unknown History aerosol inhaler (ProAir HFA) loratadine 10 mg tablet 10 mg PO DAILY PRN 03/03/22 03/31/22 Unknown History budesonide-formoterol HFA 160 2 puff INHALATION BID 03/31/22 03/31/22 03/31/22 History mcg-4.5 mcg/actuation aerosol inhaler (Symbicort) Physical Exam Vital Signs: Vital Signs: Last Vital Signs Temp 97.2 F 04/01/22 11:17 Pulse 65 04/01/22 11:17 Resp 20 04/01/22 11:17 BP 105/65 04/01/22 11:17 Pulse Ox 95 04/01/22 11:17 BMI result Body Mass Index 26.6 Const: General: comfortable and no acute distress Orientation/consciousness: patient oriented x3 Neck: Neck: Yes no lymphadenopathy Resp: Auscultation: clear to auscultation bilaterally Cardio: Rhythm: regular rhythm GI: Palpation (GI): Soft to palpation, nontender and no guarding Neuro: General: patient oriented x3 Extrem: Other: Right foot with an open ulcer laterally at the base of the 5th toe, with scantyi drainage, no obvious cellulitis Results Labs Result diagrams: 04/01/22 05:34 04/01/22 05:34 Labs: Abnormal lab results 03/31/22 03/31/22 03/31/22 Range/Units 20:00 20:00 20:00 WBC 11.6 H (4.8-10.8) X10*3/uL RBC 3.57 L (4.60-5.80) X10*6/uL Hgb 10.5 L (14.0-18.0) g/dl Hct 33.3 L (42.0-52.0) % Plt Count 451 H D (160-400) X10*3/uL MPV 8.6 L (9.4-12.4) fL Immature Gran % (Auto) 3.0 H (0.0-0.4) % Neut % (Auto) 74.0 H (45-73) % Lymph % (Auto) 10.7 L (20-40) % Eos % (Auto) (0-4) % Eos # (Auto) (0.0-0.4) X10*3/uL Abs Immat Gran (auto) 0.35 H (0.00-0.03) X10*3/uL Absolute Neuts (auto) 8.6 H (2.0-8.3) x10*3/uL ESR 97 H (0-15) MM/HR Anion Gap (12-20) Lactic Acid (0.5-2.0) mmol/L Calcium (8.4-10.2) mg/dL C-Reactive Protein 10.61 H (< or = 0.50) mg/dL 03/31/22 04/01/22 04/01/22 Range/Units 20:00 05:34 05:34 WBC (4.8-10.8) X10*3/uL RBC 2.94 L (4.60-5.80) X10*6/uL Hgb 8.6 L (14.0-18.0) g/dl Hct 27.2 L (42.0-52.0) % Plt Count (160-400) X10*3/uL MPV 8.8 L (9.4-12.4) fL Immature Gran % (Auto) 3.0 H (0.0-0.4) % Neut % (Auto) (45-73) % Lymph % (Auto) 15.6 L (20-40) % Eos % (Auto) 5.7 H (0-4) % Eos # (Auto) 0.5 H (0.0-0.4) X10*3/uL Abs Immat Gran (auto) 0.25 H (0.00-0.03) X10*3/uL Absolute Neuts (auto) (2.0-8.3) x10*3/uL ESR (0-15) MM/HR Anion Gap 10 L (12-20) Lactic Acid 2.9 H* (0.5-2.0) mmol/L Calcium 7.8 L D (8.4-10.2) mg/dL C-Reactive Protein (< or = 0.50) mg/dL Short CBC 03/31/22 04/01/22 Range/Units 20:00 05:34 WBC 11.6 H 8.4 (4.8-10.8) X10*3/uL Hgb 10.5 L 8.6 L (14.0-18.0) g/dl Hct 33.3 L 27.2 L (42.0-52.0) % Plt Count 451 H D 384 (160-400) X10*3/uL BMP 03/31/22 04/01/22 20:00 05:34 Sodium 140 139 Potassium 4.3 4.4 Chloride 101 107 Carbon Dioxide 24 26 BUN 16 15 Creatinine 0.85 0.77 Calcium 8.7 7.8 L D Liver Function 03/31/22 Range/Units 20:00 Total Bilirubin 0.3 (0.0-1.0) mg/dL Direct Bilirubin 0.2 (0.0-0.5) mg/dL AST 29 D (5-37) U/L ALT 35 (0-40) U/L Alkaline Phosphatase 96 D (39-117) U/L Albumin 3.6 (3.5-5.0) g/dL All other labs normal. Imaging Additional studies: Laboratory Results WBC 8.4 X10*3/uL (4.8-10.8) 04/01/22 05:34 RBC 2.94 X10*6/uL (4.60-5.80) L 04/01/22 05:34 Hgb 8.6 g/dl (14.0-18.0) L 04/01/22 05:34 Hct 27.2 % (42.0-52.0) L 04/01/22 05:34 MCV 92.5 fL (80.0-98.0) 04/01/22 05:34 MCH 29.3 pg (27.0-33.0) 04/01/22 05:34 MCHC 31.6 g/dl (31.0-36.0) 04/01/22 05:34 RDW 13.8 % (11.0-16.0) 04/01/22 05:34 Plt Count 384 X10*3/uL (160-400) 04/01/22 05:34 MPV 8.8 fL (9.4-12.4) L 04/01/22 05:34 Immature Gran % (Auto) 3.0 % (0.0-0.4) H 04/01/22 05:34 Neut % (Auto) 65.3 % (45-73) 04/01/22 05:34 Lymph % (Auto) 15.6 % (20-40) L 04/01/22 05:34 [place] % (Auto) 9.8 % (2-11) 04/01/22 05:34 Eos % (Auto) 5.7 % (0-4) H 04/01/22 05:34 Baso % (Auto) 0.6 % (0-2) 04/01/22 05:34 Lymph # (Auto) 1.3 X10*3/uL (1.2-4.9) 04/01/22 05:34 [place] # (Auto) 0.8 X10*3/uL (0.1-1.2) 04/01/22 05:34 Eos # (Auto) 0.5 X10*3/uL (0.0-0.4) H 04/01/22 05:34 Baso # (Auto) 0.1 X10*3/uL (0.0-0.2) 04/01/22 05:34 Abs Immat Gran (auto) 0.25 X10*3/uL (0.00-0.03) H 04/01/22 05:34 Absolute Neuts (auto) 5.5 x10*3/uL (2.0-8.3) 04/01/22 05:34 Absolute Nucleated RBC 0.000 X10*3/uL (0.0-0.012) 04/01/22 05:34 Nucleated RBC % (auto) 0.0 /100WBC (0.0-0.2) 04/01/22 05:34 ESR 97 MM/HR (0-15) H 03/31/22 20:00 Sodium 139 mmol/L (135-145) 04/01/22 05:34 Potassium 4.4 mmol/L (3.3-5.1) 04/01/22 05:34 Chloride 107 mmol/L (96-108) 04/01/22 05:34 Carbon Dioxide 26 mmol/L (22-29) 04/01/22 05:34 Anion Gap 10 (12-20) L 04/01/22 05:34 BUN 15 mg/dL (9-16) 04/01/22 05:34 Creatinine 0.77 mg/dL (0.5-1.4) 04/01/22 05:34 Estim Creat Clear Calc 69.0 04/01/22 05:34 Estimated GFR > 60 04/01/22 05:34 Random Glucose 105 mg/dL (60-115) 04/01/22 05:34 Lactic Acid 2.9 mmol/L (0.5-2.0) H* 03/31/22 20:00 Lactic Acid F/U @ 2Hr 1.3 mmol/L (0.5-2.0) 03/31/22 22:15 Calcium 7.8 mg/dL (8.4-10.2) L D 04/01/22 05:34 Total Bilirubin 0.3 mg/dL (0.0-1.0) 03/31/22 20:00 Direct Bilirubin 0.2 mg/dL (0.0-0.5) 03/31/22 20:00 AST 29 U/L (5-37) D 03/31/22 20:00 ALT 35 U/L (0-40) 03/31/22 20:00 Alkaline Phosphatase 96 U/L (39-117) D 03/31/22 20:00 C-Reactive Protein 10.61 mg/dL (< or = 0.50) H 03/31/22 20:00 Total Protein 6.9 g/dL (6.5-8.0) 03/31/22 20:00 Albumin 3.6 g/dL (3.5-5.0) 03/31/22 20:00 COVID-19 (ROBY) Negative (Negative) 03/31/22 20:00 COVID-19 Clin Com See Note 03/31/22 20:00 Impressions Foot X-Ray 03/31/22 19:50 IMPRESSION: New bony destruction at the base of the fifth proximal phalanx and the fifth metatarsal head. Findings are certainly compatible with osteomyelitis. Assessment and Plan (1) Osteomyelitis: Status: Acute Again, his imaging studies show findings consistent with osteomyelitis of the distal phalanx and the head of the metatarsal. He has a foot ulcer right next to this I again reviewed with him the option of proceeding with amputation of the 5th toe at the metatarsal head. I explained the technique of the procedure. I reviewed the risks, benefits, and alternatives He is still hesitant about going ahead and wants to continue with IV antibiotic therapy. He is to continue with the same wound care. I will see him while in the hospital for wound checks. He currently appears comfortable and does not appear to be septic. Procedures Date of Service Date of Service: 04/01/22
--- NOTE | 2022-04-01 13:15 | W.PM.IDCN ---
History of Present Illness Data of Consult Service Date: 04/01/22 Requesting physician: Kiki Cassidy Primary Care Provider: Harman Connolly MD HPI Reason for consult: osteomyelitis right foot He [facility] worsening lateral right foot exudat I had seen him in office on 03/21 when he was week 4/6 osteomyelitis treatment, had been just changed to Ceftriaxone from Daptomycin due to increased CPK He has worsening of foot pain and drainage. Review of Systems Review of Systems: Yes all other systems are reviewed and are negative [facility] Past Medical History Medical History Anemia COPD (chronic obstructive pulmonary disease) Hypercholesterolemia Hypertension Insomnia Osteomyelitis Vitamin B12 deficiency Family History Family History Father Cancer Mother Cancer Family history: reviewed and not pertinent Surgical History Surgical History History of cataract surgery History of open reduction and internal fixation (ORIF) procedure Social History Social History Household Members: Spouse Housing: House Do you presently have visiting nurse or other home services: No Alcohol intake: never Patient Tobacco Use Status: Former Tobacco user Tobacco use type: Cigarette e-Cigarette/Vaping Use: Never Used Second Hand Smoke Exposure: No Use of substances other than those prescribed or required for medical reasons: No Currently Displaying Signs/Symptoms of Drug Intoxication Withdrawal: No Have you been hit, kicked, punched, or otherwise hurt by someone within the past year? If so, by whom?: No Do you feel safe in your current relationship?: Yes Is there a partner from a previous relationship who is making you feel unsafe now?: No Are you made to feel afraid or neglected: No Advance Directives: No Advance Directives Information Provided: No Advance Directives Date on File: 03/03/22 Do you have thoughts of harming others: None Do you have a plan to hurt others: No Plan Recently lost weight without trying: No Eating poorly because of decreased appetite: Yes Nutrition Risks: No Nutritional Risk service: No Current occupational status: retired Cognitive needs: No Hearing needs: No Vision needs: No Meds Allergies Allergy/AdvReac Type Severity Reaction Status Date / Time No Known Allergies Allergy Verified 03/19/22 15:09 Active Medications: Current Medications Acetaminophen (Acetaminophen 325 Mg Tablet) 650 mg PO Q6H PRN PRN Reason: Pain, Mild (Pain Scale 1-3) Albuterol/Ipratropium (Albuterol/Iprat 2.5/0.5mg 3 Ml Ampul.Neb) 3 ml INHALE RQ4H PRN PRN Reason: Shortness of Breath/Wheezing Atorvastatin Calcium (Atorvastatin Calcium 40 Mg Tablet) 40 mg PO DAILY [facility] Last Admin: 04/01/22 08:50 Dose: 40 mg Documented by: Enoxaparin Sodium (Enoxaparin Sodium 40 Mg/0.4 Ml Syringe) 40 mg SUBCUT Q24H [facility] Last Admin: 03/31/22 22:20 Dose: 40 mg Documented by: Escitalopram Oxalate (Escitalopram Oxalate 5 Mg Tablet) 5 mg PO DAILY [facility] Last Admin: 04/01/22 08:51 Dose: 5 mg Documented by: Hydromorphone HCl (Hydromorphone Hcl 1 Mg/Ml Syringe) 0.5 mg IVPUSH Q4H PRN; Protocol PRN Reason: Pain, Severe (Pain Scale 7-10) Ceftriaxone Sodium 2 gm/ (Sodium Chloride) 50 mls @ 100 mls/hr IV Q24H [facility] Last Infusion: 03/31/22 22:18 Dose: Infused Documented by: Vancomycin HCl 1,500 mg/ (Sodium Chloride) 500 mls @ 333.333 mls/hr IV Q24H [facility] Loratadine (Loratadine 10 Mg Tablet) 10 mg PO DAILY PRN PRN Reason: Allergy Symptoms Melatonin (Melatonin 3 Mg Tablet) 6 mg PO BEDTIME PRN PRN Reason: Insomnia Pharmacy Consult (Consult Rx Vancomycin Dosing) 1 each MISCELLANE DAILY PRN PRN Reason: Consult order Senna (Sennosides 8.6 Mg Tablet) 17.2 mg PO BEDTIME PRN PRN Reason: Constipation Sodium Chloride (0.9 % Sodium Chloride Flush 3 Ml Syringe) 3 ml IVFLUSH QSHIFT [facility] Last Admin: 04/01/22 08:50 Dose: 3 ml Documented by: Home Medications Medication Instructions Recorded Confirmed Last Taken Type albuterol sulfate 90 mcg/actuation 2 puff INHALATION Q4H PRN 08/06/20 03/31/22 Unknown History aerosol inhaler (ProAir HFA) loratadine 10 mg tablet 10 mg PO DAILY PRN 03/03/22 03/31/22 Unknown History budesonide-formoterol HFA 160 2 puff INHALATION BID 03/31/22 03/31/22 03/31/22 History mcg-4.5 mcg/actuation aerosol inhaler (Symbicort) Physical Exam Vital Signs: Vital Signs: Last Vital Signs Temp 97.2 F 04/01/22 11:17 Pulse 65 04/01/22 11:17 Resp 20 04/01/22 11:17 BP 105/65 04/01/22 11:17 Pulse Ox 95 04/01/22 11:17 BMI result Body Mass Index 26.6 Const: General: cooperative HEENT: Head: Yes normal to inspection Mouth: Normal oral and palatal mucosa present Resp: Effort & Inspection: normal respiratory effort Cardio: Rate: regular rate Rhythm: regular rhythm GI: Palpation (GI): Soft to palpation and nontender Extrem: Other: right lateral foot exudate and worsening open hole probe to bone Results Labs CBC & Chem 7: 04/01/22 05:34 04/01/22 05:34 Labs: Short CBC 03/31/22 04/01/22 Range/Units 20:00 05:34 WBC 11.6 H 8.4 (4.8-10.8) X10*3/uL Hgb 10.5 L 8.6 L (14.0-18.0) g/dl Hct 33.3 L 27.2 L (42.0-52.0) % Plt Count 451 H D 384 (160-400) X10*3/uL BMP 03/31/22 04/01/22 20:00 05:34 Sodium 140 139 Potassium 4.3 4.4 Chloride 101 107 Carbon Dioxide 24 26 BUN 16 15 Creatinine 0.85 0.77 Calcium 8.7 7.8 L D Liver Function 03/31/22 Range/Units 20:00 Total Bilirubin 0.3 (0.0-1.0) mg/dL Direct Bilirubin 0.2 (0.0-0.5) mg/dL AST 29 D (5-37) U/L ALT 35 (0-40) U/L Alkaline Phosphatase 96 D (39-117) U/L Albumin 3.6 (3.5-5.0) g/dL Assessment and Plan (1) Osteomyelitis: Status: Acute This is worsening wound despite IV antibiotic therapy He refuses amputation affected bone. He has PICC line in place. Plan Pull PICC line Stop IV antibiotics as they are failing and risk of complications such as organ failure,clot and sepsis from line worse than benefit of which there is none Told patient and family member recommend amputation affected bone and if declines send on po Doxycycline one to two months with followup [facility] and myself
--- NOTE | 2022-04-01 14:15 | P.CDIC_ITS ---
CDI Concurrent Query Documentation Clarification: PHYSICIAN'S DOCUMENTATION REQUEST Date of Query: 04/01/22 141 Patient Name: Beck Brown Admit Date: 03/31/22 Dear Doctor, A review of the medical record indicates additional documentation may be indicated. Please review below and update the documentation accordingly. Clinical Indicators: Risk Factors/Clinical Indicators/Treatments Per MD progress note 03/31/22: deep wound to the lateral aspect of the right foot, deep to the bone Based on the above, could you please provide, in the Progress Notes, further information regarding the ulcer/wound: * Type (etiology) of ulcer/wound: * Diabetic ulcer * Venous stasis ulcer * Arterial (ischemic) ulcer * Pressure (decubitus) ulcer * Traumatic wound * Non-healing surgical wound * Other * Unable to determine *Source: National Pressure Ulcer Advisory Panel (NPUAP) Use of terms such as suspected, likely, concern for, or probable (associated with a specific diagnosis that is being evaluated, monitored, or treated as if it exists) are acceptable and can be coded in the inpatient setting, when documented at the time of discharge. Thank you, Ani Sosa RN Extension: [phone] Please use your independent medical judgment in providing your response. THIS QUERY IS PART OF THE PERMANENT MEDICAL RECORD Provider Response: Other Other Diagnosis: Diabetic ulcer:osteomyelitis
--- NOTE | 2022-04-01 14:17 | P.CDIC_ITS ---
CDI Concurrent Query Documentation Clarification: PHYSICIAN'S DOCUMENTATION REQUEST Date of Query: 04/01/22 1418 Patient Name: Beck Brown Admit Date: 03/31/22 Dear Doctor, A review of the medical record indicates additional documentation may be needed. Please review below and update the documentation accordingly. Clinical Indicators: Documentation on 03/31/22 indicates Osteomyelitis. Risk Factors/Clinical Indicators/Treatments patient was discharged on 03/07/22 with PICC line, IV antibiotic for right lateral foot open wound, osteomyelitis Per H&P: Osteomyelitis right foot ID: recommend pull PICC, stop antibiotic Based on the above, please clarify in the Progress Notes further specificity regarding the type of Osteomyelitis. Also include specific site with laterality and known or suspected infectious agent: * Acute osteomyelitis * Acute hematogenous osteomyelitis * Subacute osteomyelitis * Chronic osteomyelitis * Chronic hemotogenous osteomyelitis * Chronic multifocal osteomyelitis * Chronic osteomyelitis with draining sinus * Other (please specify) * Unable to determine Use of terms such as suspected, likely, concern for, or probable (associated with a specific diagnosis that is being evaluated, monitored, or treated as if it exists) are acceptable and can be coded in the inpatient setting, when documented at the time of discharge. Thank you, Ani Sosa RN Extension: [phone] Please use your independent medical judgment in providing your response. THIS QUERY IS PART OF THE PERMANENT MEDICAL RECORD Provider Response: Other Other Diagnosis: * Chronic osteomyelitis with draining sinus
--- NOTE | 2022-04-01 15:45 | PM.EVENT ---
Event Note Date of Service: 04/01/22 Event Note: had a long discussion with patient and at bedside he now wants to proceed with amputation of the 5th toe after he talked to ID and medical service I reviewed with him the technique of amputation of the 5th toe at the metatarsal I explained the risks including but not limited to bleeding, infections, poor healing, chronic pain he has agreed to proceed plan to put the patient on add on schedule for tomorrow NPO post midnight
[2022-04-01] MEDS: vancomycin HCL 1,500 MG in 0.9 % Sodium Chloride 500 ML 333.33 MG IV (17:13)
[2022-04-01] MEDS: cefTRIAXone sodium 2 GM in 0.9 % Sodium Chloride 50 ML IV (22:39)
[2022-04-02] VITALS (15 sets, daily range): BP systolic 105–154; BP diastolic 54–74; PULSE 54–85; RESP 15–20; TEMP 36.1–36.6; O2SAT 92–99
[2022-04-02 07:03] LABS: Anion Gap 12 (12-20); Blood Urea Nitrogen 12 mg/dL (9-16); Calcium 8.5 mg/dL (8.4-10.2); Carbon Dioxide 26 mmol/L (22-29); Chloride 106 mmol/L (96-108); Creatinine Clr Calc Pharmacy 67.2; Estimated Glomerular Filt Rate > 60; Glucose Random 86 mg/dL (60-115); Potassium 4.4 mmol/L (3.3-5.1); Sodium 140 mmol/L (135-145)
[2022-04-02] MEDS: Escitalopram Oxalate 5 MG TABLET PO (07:46)
[2022-04-02] MEDS: Atorvastatin Calcium 40 MG TABLET PO (07:46)
[2022-04-02] MEDS: 0.9 % Sodium Chloride Flush 3 ML SYRINGE IVFLUSH ×2 (07:46→23:24)
--- NOTE | 2022-04-02 08:42 | HO.PM.IMPN ---
Subjective Subjective Date of Service: 04/02/22 Interval History: Waiting for the surgery today Denies any fever, chills or pain in the foot No reported other overnight events. Systemic review: No fever, chills or weakness No chest pain, palpitation No shortness of breath or coughing No abdominal pain, nausea or vomiting No urinary symptoms Worsening foot ulcer Physical Exam Vital Signs: Vital Signs: Last Vital Signs Temp 96.9 F 04/02/22 08:00 Pulse 76 04/02/22 08:00 Resp 20 04/02/22 08:00 BP 154/74 H 04/02/22 08:00 Pulse Ox 95 04/02/22 08:00 O2 Del Method 04/02/22 08:00 BMI result Body Mass Index 26.6 Const: Other: Appearance: Alert. Oriented X3. No acute distress. Eyes: Pupils equal, round and reactive to light. ENT: Pharynx normal. Neck: Normal inspection. Neck supple. No lymph nodes noted. No crepitus CVS: Normal heart rate and rhythm. Pulses normal. Normal S1 and S2 Respiratory: No respiratory distress. Breath sounds normal. No Wheezing. No rales Abdomen: Soft and nontender. No rigidity. No distention. Skin: Skin warm and dry. Patient has had deep wound to the lateral aspect of the right foot, deep to the bone, see pictures below Extremities: No lower extremity edema. Neuro: Oriented X 3. No motor deficit. No sensory deficit. Moving all extremities. No slurred speech. CN 2 through 12 grossly intact Psych: calm, cooperative, normal affect Objective Data Active Medications Acetaminophen (Acetaminophen 325 Mg Tablet) 650 mg PO Q6H PRN PRN Reason: Pain, Mild (Pain Scale 1-3) Albuterol/Ipratropium (Albuterol/Iprat 2.5/0.5mg 3 Ml Ampul.Neb) 3 ml INHALE RQ4H PRN PRN Reason: Shortness of Breath/Wheezing Atorvastatin Calcium (Atorvastatin Calcium 40 Mg Tablet) 40 mg PO DAILY [facility] Last Admin: 04/02/22 07:46 Dose: 40 mg Documented By: LENARD Enoxaparin Sodium (Enoxaparin Sodium 40 Mg/0.4 Ml Syringe) 40 mg SUBCUT Q24H [facility] Last Admin: 03/31/22 22:20 Dose: 40 mg Documented By: IVONE Escitalopram Oxalate (Escitalopram Oxalate 5 Mg Tablet) 5 mg PO DAILY [facility] Last Admin: 04/02/22 07:46 Dose: 5 mg Documented By: LENARD Hydromorphone HCl (Hydromorphone Hcl 1 Mg/Ml Syringe) 0.5 mg IVPUSH Q4H PRN; Protocol PRN Reason: Pain, Severe (Pain Scale 7-10) Ceftriaxone Sodium 2 gm/ (Sodium Chloride) 50 mls @ 100 mls/hr IV Q24H [facility] Stop: 04/03/22 20:00 Last Infusion: 04/01/22 23:10 Dose: 0 mls/hr Documented By: DOBROB Loratadine (Loratadine 10 Mg Tablet) 10 mg PO DAILY PRN PRN Reason: Allergy Symptoms Melatonin (Melatonin 3 Mg Tablet) 6 mg PO BEDTIME PRN PRN Reason: Insomnia Pharmacy Consult (Consult Rx Vancomycin Dosing) 1 each MISCELLANE DAILY PRN PRN Reason: Consult order Senna (Sennosides 8.6 Mg Tablet) 17.2 mg PO BEDTIME PRN PRN Reason: Constipation Sodium Chloride (0.9 % Sodium Chloride Flush 3 Ml Syringe) 3 ml IVFLUSH QSHIFT [facility] Last Admin: 04/02/22 07:46 Dose: 3 ml Documented By: LENARD Labs CBC & Chem 7: 04/01/22 05:34 04/02/22 03:49 Labs: Laboratory Results - last 24 hr 04/02/22 04/02/22 03:49 03:49 Anion Gap 12 Estim Creat Clear Calc 67.2 Cancelled Estimated GFR > 60 Cancelled Random Glucose 86 Calcium 8.5 D Microbiology Microbiology Results: Microbiology 03/31/22 20:08 Blood Culture - Preliminary Blood - Venous No growth after 24 hours. 03/31/22 20:00 Blood Culture - Preliminary Blood - Venous No growth after 24 hours. Assessment and Plan (1) Osteomyelitis: Status: Acute (2) Foot ulcer, right: Status: Acute Plan 82-year-old male with a past medical history of hypertension, hyperlipidemia, COPD, anemia, vitamin B12 deficiency, chronic right foot ulcer/osteomyelitis; discharged on 03/07/2022 with a PICC line for 6 weeks of antibiotics. Presented back today with a chief complaint of worsening right foot wound. Noted to have new bony destruction/osteomyelitis. Admitted for further management. 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 could not tolerate daptomycin-antibiotic was changed to ceftriaxone Currently presented worsening right foot wound. X-ray showed new bony destruction at the base of the 5th proximal phalanx and 5th metatarsal head-consistent with osteomyelitis Id input appreciated, discontinue antibiotics Vanco discontinued, still ceftriaxone as he agree to do surgery Plan to do amputation of the 5th metatarsal, surgery following IV access Patient has PICC line-inserted on 03/07/2022, plan to DC at before discharge History of hypertension/hyperlipidemia Continue home losartan/statin. 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 DVT prophylaxis: Lovenox , on hold for surgery Patient will need overnight hospital stay for management of osteomyelitis with bone destruction pending amputation to prevent possible decomposition into sepsis. Quality Stroke Does the patient have a stroke diagnosis?: No VTE Prior VTE?: No VTE Risk Level:: Medical - moderate - high VTE Device Contraindication: Treatment Not Indicated VTE Drug Contraindication: N/A - Med Ordered
--- NOTE | 2022-04-02 12:48 | P.CONAN_ITS ---
HPI - Anesthesia Eval Consult details Narrative: 82 yo male patient for Right 5th toe amputation PMFSH Active Problems Active Problems: All Active Problems (Updated 03/31/22 @ 21:00 by Lyla Abernathy MD) Osteomyelitis (Acute)- Open wound Right lateral foot. Denies pain. No h/o DM Knee pain, left (Acute) Osteomyelitis (Acute) Renal insufficiency (Acute) Foot ulcer, right (Acute) Generalized anxiety disorder (Acute) Anemia (Chronic)- 6point drop in Hct 03/31/22-04/01/22. Pateint denies any visible bleeding Vitamin B12 deficiency (Acute) Hypertension (Acute) Hypercholesterolemia (Acute) COPD (chronic obstructive pulmonary disease) (Acute) Insomnia (Acute) Past Medical History Medical History Anemia COPD (chronic obstructive pulmonary disease) Hypercholesterolemia Hypertension Insomnia Osteomyelitis Vitamin B12 deficiency Family History Family History Father Cancer Mother Cancer Family history of problems with anesthesia: No Surgical History Surgical History History of cataract surgery History of open reduction and internal fixation (ORIF) procedure History of Problems with Anesthesia: No Social History Social History Household Members: Spouse Housing: House Do you presently have visiting nurse or other home services: No Alcohol intake: never Patient Tobacco Use Status: Former Tobacco user Tobacco use type: Cigarette e-Cigarette/Vaping Use: Never Used Second Hand Smoke Exposure: No Use of substances other than those prescribed or required for medical reasons: No Currently Displaying Signs/Symptoms of Drug Intoxication Withdrawal: No Have you been hit, kicked, punched, or otherwise hurt by someone within the past year? If so, by whom?: No Do you feel safe in your current relationship?: Yes Is there a partner from a previous relationship who is making you feel unsafe now?: No Are you made to feel afraid or neglected: No Are you DNR?: No Advance Directives: No Advance Directives Information Provided: No Advance Directives on File: Yes Advance Directives Date on File: 03/03/22 Do you have thoughts of harming others: None Do you have a plan to hurt others: No Plan Recently lost weight without trying: No Eating poorly because of decreased appetite: Yes Nutrition Risks: No Nutritional Risk service: No Current occupational status: retired Cognitive needs: No Hearing needs: No Vision needs: No Meds Allergies Allergy/AdvReac Type Severity Reaction Status Date / Time No Known Allergies Allergy Verified 03/19/22 15:09 Active Medications: Current Medications Acetaminophen (Acetaminophen 325 Mg Tablet) 650 mg PO Q6H PRN PRN Reason: Pain, Mild (Pain Scale 1-3) Albuterol/Ipratropium (Albuterol/Iprat 2.5/0.5mg 3 Ml Ampul.Neb) 3 ml INHALE RQ4H PRN PRN Reason: Shortness of Breath/Wheezing Atorvastatin Calcium (Atorvastatin Calcium 40 Mg Tablet) 40 mg PO DAILY [facility] Last Admin: 04/02/22 07:46 Dose: 40 mg Enoxaparin Sodium (Enoxaparin Sodium 40 Mg/0.4 Ml Syringe) 40 mg SUBCUT Q24H [facility] Last Admin: 03/31/22 22:20 Dose: 40 mg Escitalopram Oxalate (Escitalopram Oxalate 5 Mg Tablet) 5 mg PO DAILY [facility] Last Admin: 04/02/22 07:46 Dose: 5 mg Hydromorphone HCl (Hydromorphone Hcl 1 Mg/Ml Syringe) 0.5 mg IVPUSH Q4H PRN; Protocol PRN Reason: Pain, Severe (Pain Scale 7-10) Ceftriaxone Sodium 2 gm/ (Sodium Chloride) 50 mls @ 100 mls/hr IV Q24H [facility] Stop: 04/03/22 20:00 Last Infusion: 04/01/22 23:10 Dose: Infused Loratadine (Loratadine 10 Mg Tablet) 10 mg PO DAILY PRN PRN Reason: Allergy Symptoms Melatonin (Melatonin 3 Mg Tablet) 6 mg PO BEDTIME PRN PRN Reason: Insomnia Pharmacy Consult (Consult Rx Vancomycin Dosing) 1 each MISCELLANE DAILY PRN PRN Reason: Consult order Senna (Sennosides 8.6 Mg Tablet) 17.2 mg PO BEDTIME PRN PRN Reason: Constipation Sodium Chloride (0.9 % Sodium Chloride Flush 3 Ml Syringe) 3 ml IVFLUSH QSHIFT [facility] Last Admin: 04/02/22 07:46 Dose: 3 ml Home Medications Medication Instructions Recorded Confirmed Last Taken Type albuterol sulfate 90 mcg/actuation 2 puff inhalation Q4H PRN 08/06/20 03/31/22 Unknown History aerosol inhaler (ProAir HFA) Shortness Of Breath loratadine 10 mg tablet 10 mg PO DAILY PRN Allergy Symptoms 03/03/22 03/31/22 Unknown History budesonide-formoterol HFA 160 2 puff inhalation BID 03/31/22 03/31/22 03/31/22 History mcg-4.5 mcg/actuation aerosol inhaler (Symbicort) Exam Exam Date and Time: April 02, 2022 124 Height,Weight and Vital Signs: Height 5 ft 6 in Weight 74.843 kg Last Vital Signs Temp 97.1 F 04/02/22 12:21 Pulse 60 04/02/22 12:21 Resp 16 04/02/22 12:21 BP 139/54 L 04/02/22 12:21 Pulse Ox 92 04/02/22 12:21 O2 Del Method 04/02/22 12:21 Pertinent Lab Results Pertinent Lab Results: Laboratory Tests 03/31/22 03/31/22 03/31/22 20:00 20:00 20:00 WBC 11.6 H RBC 3.57 L Hgb 10.5 L Hct 33.3 L MCV 93.3 MCH 29.4 MCHC 31.5 RDW 13.7 Plt Count 451 H D MPV 8.6 L Immature Gran % (Auto) 3.0 H Neut % (Auto) 74.0 H Lymph % (Auto) 10.7 L Coal % (Auto) 8.0 Eos % (Auto) 3.8 Baso % (Auto) 0.5 Lymph # (Auto) 1.3 Coal # (Auto) 0.9 Eos # (Auto) 0.4 Baso # (Auto) 0.1 Abs Immat Gran (auto) 0.35 H Absolute Neuts (auto) 8.6 H Absolute Nucleated RBC 0.000 Nucleated RBC % (auto) 0.0 ESR 97 H Sodium 140 Potassium 4.3 Chloride 101 Carbon Dioxide 24 Anion Gap 19 BUN 16 Creatinine 0.85 Estim Creat Clear Calc 62.5 Estimated GFR > 60 Random Glucose 101 Lactic Acid Lactic Acid F/U @ 2Hr Calcium 8.7 Total Bilirubin 0.3 Direct Bilirubin 0.2 AST 29 D ALT 35 Alkaline Phosphatase 96 D C-Reactive Protein 10.61 H Total Protein 6.9 Albumin 3.6 COVID-19 ([facility]) COVID-19 Clin Com 03/31/22 03/31/22 03/31/22 20:00 20:00 22:15 WBC RBC Hgb Hct MCV MCH MCHC RDW Plt Count MPV Immature Gran % (Auto) Neut % (Auto) Lymph % (Auto) Coal % (Auto) Eos % (Auto) Baso % (Auto) Lymph # (Auto) Coal # (Auto) Eos # (Auto) Baso # (Auto) Abs Immat Gran (auto) Absolute Neuts (auto) Absolute Nucleated RBC Nucleated RBC % (auto) ESR Sodium Potassium Chloride Carbon Dioxide Anion Gap BUN Creatinine Estim Creat Clear Calc Estimated GFR Random Glucose Lactic Acid 2.9 H* Lactic Acid F/U @ 2Hr 1.3 Calcium Total Bilirubin Direct Bilirubin AST ALT Alkaline Phosphatase C-Reactive Protein Total Protein Albumin COVID-19 ([facility]) Negative COVID-19 Clin Com See Note 04/01/22 04/01/22 04/02/22 05:34 05:34 03:49 WBC 8.4 RBC 2.94 L Hgb 8.6 L Hct 27.2 L MCV 92.5 MCH 29.3 MCHC 31.6 RDW 13.8 Plt Count 384 MPV 8.8 L Immature Gran % (Auto) 3.0 H Neut % (Auto) 65.3 Lymph % (Auto) 15.6 L Coal % (Auto) 9.8 Eos % (Auto) 5.7 H Baso % (Auto) 0.6 Lymph # (Auto) 1.3 Coal # (Auto) 0.8 Eos # (Auto) 0.5 H Baso # (Auto) 0.1 Abs Immat Gran (auto) 0.25 H Absolute Neuts (auto) 5.5 Absolute Nucleated RBC 0.000 Nucleated RBC % (auto) 0.0 ESR Sodium 139 140 Potassium 4.4 4.4 Chloride 107 106 Carbon Dioxide 26 26 Anion Gap 10 L 12 BUN 15 12 Creatinine 0.77 0.79 Estim Creat Clear Calc 69.0 67.2 Estimated GFR > 60 > 60 Random Glucose 105 86 Lactic Acid Lactic Acid F/U @ 2Hr Calcium 7.8 L D 8.5 D Total Bilirubin Direct Bilirubin AST ALT Alkaline Phosphatase C-Reactive Protein Total Protein Albumin COVID-19 ([facility]) COVID-19 Clin Com 04/02/22 03:49 WBC RBC Hgb Hct MCV MCH MCHC RDW Plt Count MPV Immature Gran % (Auto) Neut % (Auto) Lymph % (Auto) Coal % (Auto) Eos % (Auto) Baso % (Auto) Lymph # (Auto) Coal # (Auto) Eos # (Auto) Baso # (Auto) Abs Immat Gran (auto) Absolute Neuts (auto) Absolute Nucleated RBC Nucleated RBC % (auto) ESR Sodium Potassium Chloride Carbon Dioxide Anion Gap BUN Creatinine Cancelled Estim Creat Clear Calc Cancelled Estimated GFR Cancelled Random Glucose Lactic Acid Lactic Acid F/U @ 2Hr Calcium Total Bilirubin Direct Bilirubin AST ALT Alkaline Phosphatase C-Reactive Protein Total Protein Albumin COVID-19 ([facility]) COVID-19 Clin Com Airway Mallampati Class: I TM Dist: >3cm Neck ROM: Full Loose/Missing/Broken Teeth: Yes (Edentulous) Heart: RRR Lungs: CTAB Assessment and Plan Assessment Anesthesia Assessment: Anesthesia Plan Discussed and Chart Reviewed Final Anesthetic Review Family History of Problems with Anesthesia: No History of Problems with Anesthesia: No NPO: Yes ASA Class: III Final Preanesthetic Review: No Changes in Pt Med Stat, Meds/Allgs Chart Reviewed, Consent Obtained/Reviewed and Anes Risks/Benef Reviewed Patient Risk: Intermediate Procedure Risk: Low Assessment/Block/Sedation in SS: Assess/Block/Sedation-SS Anesthetic Plan Anesthetic Plan: GA Disposition: Standard PACU
--- NOTE | 2022-04-02 14:13 | P.OP_ITS ---
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 He has had osteomyelitis at the metatarsal head. He had been on IV antibiotic treatment and had insufficiency because of the antibiotics. He therefore decided to go ahead with amputation. He understood technique of amputation of the 5th toe. He was aware of the risks, benefits, and alternatives . He was brought to the operating room. He was placed supine under general seizure via laryngeal mask airway. The right foot was prepped and draped in usual sterile fashion. a surgical time-out was done The patient had been receiving scheduled antibiotics . I marked the planned line of incision. Infiltrated this with lidocaine 1%. I made the incision using blade 15 around the 5th toe the toe going proximally to include the ulcer. This was carried down with electrocautery through the full- thickness of the skin. I proceeded to continue to divide through the subcutaneous fat and soft tissue to expose the metatarsal past the diseased segment. I divided the rest of the soft tissue between the 1st and 2nd metatarsals using curved Valentine scissors. Used the periosteal elevator to define the metatarsal. I used a bone cutter to divide this. I completed the division of the soft tissues to deliver this 5th toe including the distal metatarsal . I cauterized oozing areas. I copies irrigated. I used a rongeur to remove sharp areas of the 5th metatarsal. I used a bone wax as well. Once hemostasis was ensured, I reapposed the soft tissues overlying the using Dexon 2-0 interrupted sutures. I closed the incision with simple nylon 2-0 simple interrupted sutures. Thick dressings were applied. The foot was wrapped in Kerlix roll and Melchor bandage. The procedure was completed. The patient tolerated procedure well. There were no complication noted. Initial final counts of sponges instruments were correct. Estimated blood loss was about 30 cc. The patient was extubated without difficulty and transferred to the recovery room with stable vital signs
[2022-04-02] MEDS: Enoxaparin Sodium 40 MG/0.4 ML SYRINGE SUBCUT (19:25)
[2022-04-02] MEDS: Lactated Ringers 1,000 ML 100 ML IVCONT (19:30)
[2022-04-02] MEDS: cefTRIAXone sodium 2 GM in 0.9 % Sodium Chloride 50 ML IV (21:36)
[2022-04-03] VITALS (8 sets, daily range): BP systolic 91–137; BP diastolic 53–63; PULSE 62–86; RESP 16–18; TEMP 36.3–36.7; O2SAT 93–96
[2022-04-03] MEDS: Lactated Ringers 1,000 ML 100 ML IVCONT (04:22)
[2022-04-03 06:22] LABS: Hematocrit 25.9 % (42.0-52.0); Hemoglobin 8.2 g/dl (14.0-18.0); Mean Corpuscular HGB Conc 31.7 g/dl (31.0-36.0); Mean Corpuscular Hemoglobin 29.4 pg (27.0-33.0); Mean Corpuscular Volume 92.8 fL (80.0-98.0); Mean Platelet Volume 8.5 fL (9.4-12.4); Platelet Count 316 X10*3/uL (160-400); Red Blood Count 2.79 X10*6/uL (4.60-5.80); Red Cell Distribution Width 13.7 % (11.0-16.0); White Blood Count 9.9 X10*3/uL (4.8-10.8)
[2022-04-03 06:32] LABS: Anion Gap 10 (12-20); Blood Urea Nitrogen 9 mg/dL (9-16); Calcium 8.1 mg/dL (8.4-10.2); Carbon Dioxide 29 mmol/L (22-29); Chloride 102 mmol/L (96-108); Creatinine Clr Calc Pharmacy 71.8; Estimated Glomerular Filt Rate > 60; Glucose Random 99 mg/dL (60-115); Potassium 4.5 mmol/L (3.3-5.1); Sodium 136 mmol/L (135-145)
--- NOTE | 2022-04-03 06:49 | HO.POSTANES ---
Post Anesthesia Evaluation Post Anesthesia Evaluation Vital Signs: Vital Signs Temp Pulse Resp BP Pulse Ox O2 Del Method 04/03/22 04:00 98.1 F 75 17 119/60 96 Room Air 04/03/22 00:00 97.4 F 86 17 123/58 L 95 Room Air 04/02/22 23:34 97.5 F 60 15 126/68 92 Room Air 04/02/22 20:00 97.7 F 67 18 119/57 L 94 Room Air 04/02/22 19:10 97.7 F 67 18 119/57 L 94 Room Air Anesthesia: General Mental Status: Awake Pain Control: Satisfactory Nausea/Vomiting: None Hydration: Adequate Anesthesia-Related Issues: No Anes. Related Issues
[2022-04-03] MEDS: 0.9 % Sodium Chloride Flush 3 ML SYRINGE IVFLUSH ×3 (08:28→21:55)
[2022-04-03] MEDS: Atorvastatin Calcium 40 MG TABLET PO (08:28)
[2022-04-03] MEDS: Escitalopram Oxalate 5 MG TABLET PO (08:28)
--- NOTE | 2022-04-03 09:05 | PM.PNGS ---
Subjective Subjective Date of Service: 04/03/22 Interval history: denies pain no events overnight Physical Exam Vital Signs: Vital Signs: Last Vital Signs Temp 98.1 F 04/03/22 04:00 Pulse 73 04/03/22 07:51 Resp 16 04/03/22 07:51 BP 137/63 04/03/22 07:51 Pulse Ox 95 04/03/22 07:51 O2 Del Method 04/03/22 07:51 O2 Flow Rate 2.0 04/02/22 15:16 BMI result Body Mass Index 26.6 Const: General: comfortable and no acute distress Resp: Effort & Inspection: normal respiratory effort Cardio: Rate: regular rate Extrem: Other: dressings dry on toe amputation site Objective Data Active Medications Acetaminophen (Acetaminophen 325 Mg Tablet) 650 mg PO Q6H PRN PRN Reason: Pain, Mild (Pain Scale 1-3) Acetaminophen (Acetaminophen 325 Mg Tablet) 650 mg PO ONCE PRN PRN Reason: Pain, Mild (Pain Scale 1-3) Albuterol Sulfate (Albuterol Sulfate (0.083%) 2.5 Mg/3 Ml Vial.Neb) 2.5 mg INHALE ONCE PRN PRN Reason: Wheezing Albuterol/Ipratropium (Albuterol/Iprat 2.5/0.5mg 3 Ml Ampul.Neb) 3 ml INHALE RQ4H PRN PRN Reason: Shortness of Breath/Wheezing Atorvastatin Calcium (Atorvastatin Calcium 40 Mg Tablet) 40 mg PO DAILY [facility] Last Admin: 04/03/22 08:28 Dose: 40 mg Documented By: ROBERT Enoxaparin Sodium (Enoxaparin Sodium 40 Mg/0.4 Ml Syringe) 40 mg SUBCUT Q24H [facility] Last Admin: 04/02/22 19:25 Dose: 40 mg Documented By: CASTILMarcelle Escitalopram Oxalate (Escitalopram Oxalate 5 Mg Tablet) 5 mg PO DAILY [facility] Last Admin: 04/03/22 08:28 Dose: 5 mg Documented By: ROBERT Fentanyl (Fentanyl Citrate/Pf 100 Mcg/2 Ml Vial) 25 mcg IVPUSH Q5M PRN; Protocol PRN Reason: Pain, Moderate (Pain Scale 4-6 Hydromorphone HCl (Hydromorphone Hcl 1 Mg/Ml Syringe) 0.5 mg IVPUSH Q4H PRN; Protocol PRN Reason: Pain, Severe (Pain Scale 7-10) Ceftriaxone Sodium 2 gm/ (Sodium Chloride) 50 mls @ 100 mls/hr IV Q24H [facility] Stop: 04/03/22 20:00 Last Infusion: 04/02/22 22:20 Dose: 0 mls/hr Documented By: ROSI Loratadine (Loratadine 10 Mg Tablet) 10 mg PO DAILY PRN PRN Reason: Allergy Symptoms Melatonin (Melatonin 3 Mg Tablet) 6 mg PO BEDTIME PRN PRN Reason: Insomnia Ondansetron HCl (Ondansetron Hcl 4 Mg/2 Ml Vial) 4 mg IVPUSH ONCE PRN PRN Reason: Nausea and Vomiting Oxycodone HCl (Oxycodone Hcl Immed Release 5 Mg Tablet) 5 mg PO ONCE PRN PRN Reason: Pain, Severe (Pain Scale 7-10) Oxycodone HCl (Oxycodone Hcl Immed Release 5 Mg Tablet) 5 mg PO Q4H PRN PRN Reason: Pain, Moderate (Pain Scale 4-6 Pharmacy Consult (Consult Rx Vancomycin Dosing) 1 each MISCELLANE DAILY PRN PRN Reason: Consult order Senna (Sennosides 8.6 Mg Tablet) 17.2 mg PO BEDTIME PRN PRN Reason: Constipation Sodium Chloride (0.9 % Sodium Chloride Flush 3 Ml Syringe) 3 ml IVFLUSH QSHIFT [facility] Last Admin: 04/03/22 08:28 Dose: 3 ml Documented By: ROBERT Labs CBC & Chem 7: 04/03/22 06:09 04/03/22 06:09 Labs: Laboratory Results - last 24 hr 04/03/22 04/03/22 06:09 06:09 MCV 92.8 MCH 29.4 MCHC 31.7 RDW 13.7 Plt Count 316 MPV 8.5 L Absolute Nucleated RBC 0.000 Nucleated RBC % (auto) 0.0 Anion Gap 10 L Estim Creat Clear Calc 71.8 Estimated GFR > 60 Random Glucose 99 Calcium 8.1 L Microbiology Microbiology Results: Microbiology 03/31/22 20:08 Blood Culture - Preliminary Blood - Venous No growth after 48 hours. 03/31/22 20:00 Blood Culture - Preliminary Blood - Venous No growth after 48 hours. Procedures Date of Service Date of Service: 04/03/22 Progress Note: A&P Assessment and plan (1) Osteomyelitis: Status: Acute Assessment and Plan: status post toe amputation, 5th toe, at the metatarsal level doing well denies pain plan to change dressings tomorrow elevate right foot Time Spent With Patient Time: Total time spent is greater than 50% in coordination of care (as documented) at patient's floor/unit and/or counseling patient: Quality Stroke Does the patient have a stroke diagnosis?: No VTE Prior VTE?: No VTE Risk Level:: Medical - moderate - high VTE Device Contraindication: Treatment Not Indicated VTE Drug Contraindication: N/A - Med Ordered
--- NOTE | 2022-04-03 12:03 | MHC.CM.PN ---
Addendum entered by Karolyn Riggins 04/03/22 15:25: i called to patients omar and informed her that i already has some denials for vna secondary to staffing issues and if she would poosibly be able to come in tomottrrow am to see the surgeon change the dressing and see if i can not get the vna if she could and be willing to observe and do dressings at home , she aids she would come in and if i could not get vna she would do the dressings. 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 ELECTRONIC MEDICAL RECORD REVIEWED CASE DISCUSSED WITH PHYSICAL THERAPUIST AND THE HOSPITLSIT PATIENT HAD BEEN ACTIVE WITH [facility] IV ABX FOR OSTEOMYELITIS OF RT METARSAL , HE HAD SURGICAL AMPUTATION AT THIS SITE ON 04/02/22, HE WAS EVALUATED BY PHYSICAL THEAROIST, PER [facility] AT THIS TIME HE WILL NOT NEED ANY HOME VNA OR HOME PT SERVCIES AND ANTICIPATE DISCHARGE TOMORROW DISCHARGE PLAN HOME NO SERVICES CANCELLED REFERRAL FOR RESUMTPION OF [facility] INFUSON ASERVICES OPPPPPPCP DR COPELAND INSTRUCTED TO CLAL FOR FOR FOLLOW UP POST HOSPTILA DISCHARGE SURGICAL FOLLOW UP PER JASSI LALA TO BE CHNQGED BUY THE SURGEO TOMORROW AM TRANSPORTATION FAMILY
--- NOTE | 2022-04-03 15:14 | HO.PM.IMPN ---
Subjective Subjective Date of Service: 04/03/22 Interval History: seen and examined this morning follow up for foot infection s/p Right 5th toe metatarsal amputation yesterday No overnight events Patient reports pain is well controlled Denies any fever, chills Review of Systems Review of Systems: Yes all other systems are reviewed and are negative Constitutional Constitutional: Denies chills and Denies fever(s) Cardiovascular Cardiovascular: Denies chest pain, Denies palpitations and Denies dyspnea Respiratory Respiratory: Denies cough and Denies dyspnea Gastrointestinal Gastrointestinal: Denies abdominal pain, Denies nausea and Denies vomiting Endocrine Endocrine: Denies palpitations Physical Exam Vital Signs: Vital Signs: Last Vital Signs Temp 98.0 F 04/03/22 11:28 Pulse 71 04/03/22 15:06 Resp 18 04/03/22 15:06 BP 130/61 04/03/22 15:06 Pulse Ox 94 04/03/22 15:06 O2 Del Method 04/03/22 15:06 O2 Flow Rate 2.0 04/02/22 15:16 BMI result Body Mass Index 26.6 Const: General: cooperative, comfortable, no acute distress, alert and awake Nutritional Appearance: average body habitus Orientation/consciousness: patient oriented x3 Resp: Effort & Inspection: normal respiratory effort and able to speak in complete sentences Auscultation: clear to auscultation bilaterally Cardio: Rate: regular rate Heart sounds: S1 normal heart sound present and S2 normal heart sound present GI: Inspection: No distended Palpation (GI): Soft to palpation and nontender Neuro: General: patient oriented x3 Extrem: Other: right foot wrapped in c/d/i dressing Objective Data Active Medications Acetaminophen (Acetaminophen 325 Mg Tablet) 650 mg PO Q6H PRN PRN Reason: Pain, Mild (Pain Scale 1-3) Acetaminophen (Acetaminophen 325 Mg Tablet) 650 mg PO ONCE PRN PRN Reason: Pain, Mild (Pain Scale 1-3) Albuterol Sulfate (Albuterol Sulfate (0.083%) 2.5 Mg/3 Ml Vial.Neb) 2.5 mg INHALE ONCE PRN PRN Reason: Wheezing Albuterol/Ipratropium (Albuterol/Iprat 2.5/0.5mg 3 Ml Ampul.Neb) 3 ml INHALE RQ4H PRN PRN Reason: Shortness of Breath/Wheezing Atorvastatin Calcium (Atorvastatin Calcium 40 Mg Tablet) 40 mg PO DAILY [facility] Last Admin: 04/03/22 08:28 Dose: 40 mg Documented By: ROBERT Enoxaparin Sodium (Enoxaparin Sodium 40 Mg/0.4 Ml Syringe) 40 mg SUBCUT Q24H [facility] Last Admin: 04/02/22 19:25 Dose: 40 mg Documented By: ROSI Escitalopram Oxalate (Escitalopram Oxalate 5 Mg Tablet) 5 mg PO DAILY [facility] Last Admin: 04/03/22 08:28 Dose: 5 mg Documented By: ROBERT Fentanyl (Fentanyl Citrate/Pf 100 Mcg/2 Ml Vial) 25 mcg IVPUSH Q5M PRN; Protocol PRN Reason: Pain, Moderate (Pain Scale 4-6 Hydromorphone HCl (Hydromorphone Hcl 1 Mg/Ml Syringe) 0.5 mg IVPUSH Q4H PRN; Protocol PRN Reason: Pain, Severe (Pain Scale 7-10) Ceftriaxone Sodium 2 gm/ (Sodium Chloride) 50 mls @ 100 mls/hr IV Q24H [facility] Stop: 04/03/22 20:00 Last Infusion: 04/02/22 22:20 Dose: 0 mls/hr Documented By: ROSI Loratadine (Loratadine 10 Mg Tablet) 10 mg PO DAILY PRN PRN Reason: Allergy Symptoms Melatonin (Melatonin 3 Mg Tablet) 6 mg PO BEDTIME PRN PRN Reason: Insomnia Ondansetron HCl (Ondansetron Hcl 4 Mg/2 Ml Vial) 4 mg IVPUSH ONCE PRN PRN Reason: Nausea and Vomiting Oxycodone HCl (Oxycodone Hcl Immed Release 5 Mg Tablet) 5 mg PO ONCE PRN PRN Reason: Pain, Severe (Pain Scale 7-10) Oxycodone HCl (Oxycodone Hcl Immed Release 5 Mg Tablet) 5 mg PO Q4H PRN PRN Reason: Pain, Moderate (Pain Scale 4-6 Pharmacy Consult (Consult Rx Vancomycin Dosing) 1 each MISCELLANE DAILY PRN PRN Reason: Consult order Senna (Sennosides 8.6 Mg Tablet) 17.2 mg PO BEDTIME PRN PRN Reason: Constipation Sodium Chloride (0.9 % Sodium Chloride Flush 3 Ml Syringe) 3 ml IVFLUSH QSHIFT [facility] Last Admin: 04/03/22 08:28 Dose: 3 ml Documented By: ROBERT Labs CBC & Chem 7: 04/03/22 06:09 04/03/22 06:09 Labs: Laboratory Results - last 24 hr 04/03/22 04/03/22 04/03/22 06:09 06:09 13:58 MCV 92.8 MCH 29.4 MCHC 31.7 RDW 13.7 Plt Count 316 MPV 8.5 L Absolute Nucleated RBC 0.000 Nucleated RBC % (auto) 0.0 Anion Gap 10 L Estim Creat Clear Calc 71.8 Estimated GFR > 60 Random Glucose 99 Calcium 8.1 L Vancomycin Trough 6.0 L Microbiology Microbiology Results: Microbiology 03/31/22 20:08 Blood Culture - Preliminary Blood - Venous No growth after 48 hours. 03/31/22 20:00 Blood Culture - Preliminary Blood - Venous No growth after 48 hours. Assessment and Plan (1) Osteomyelitis: Status: Acute Plan 82-year-old male with a past medical history of hypertension, hyperlipidemia, COPD, anemia, vitamin B12 deficiency, chronic right foot ulcer/osteomyelitis; discharged on 03/07/2022 with a PICC line for 6 weeks of antibiotics. Presented back today with a chief complaint of worsening right foot wound. Noted to have new bony destruction/osteomyelitis. Admitted for further management. 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 could not tolerate daptomycin-antibiotic was changed to ceftriaxone presented worsening right foot wound X-ray showed new bony destruction at the base of the 5th proximal phalanx and 5th metatarsal head-consistent with osteomyelitis seen by general surgery; s/p right 5th metatarsal amputation 04/02 seen by ID input appreciated, rec to d/c abx Blood cultures negative IV access Patient has PICC line-inserted on 03/07/2022, plan to DC at before discharge History of hypertension losartan was held on last discharge. does not appear to have been restarted BP under control, will hold off on resuming at this time HLD continue statin History of COPD [facility] p.r.n.. DVT prophylaxis: Lovenox , on hold for surgery attending: dr. choe seen by PT - no need for PT on d/c Needs ongoing inpatient hospitalization for management of osteomyelitis/ wound care s/p amputation; likely discharge home tomorrow Quality Stroke Does the patient have a stroke diagnosis?: No VTE Prior VTE?: No VTE Risk Level:: Medical - moderate - high VTE Device Contraindication: Treatment Not Indicated VTE Drug Contraindication: N/A - Med Ordered
[2022-04-03] MEDS: Enoxaparin Sodium 40 MG/0.4 ML SYRINGE SUBCUT (21:46)
[2022-04-04] VITALS: BP 119/67; PULSE 80; RESP 17; TEMP 36.8; O2SAT 94
[2022-04-04 04:00] VITALS: BP 95/51; PULSE 70; RESP 17; TEMP 36.7; O2SAT 95
[2022-04-04 06:16] LABS: Hematocrit 25.7 % (42.0-52.0); Hemoglobin 8.1 g/dl (14.0-18.0); Mean Corpuscular HGB Conc 31.5 g/dl (31.0-36.0); Mean Corpuscular Hemoglobin 28.9 pg (27.0-33.0); Mean Corpuscular Volume 91.8 fL (80.0-98.0); Mean Platelet Volume 8.8 fL (9.4-12.4); Platelet Count 346 X10*3/uL (160-400); Red Cell Distribution Width 13.8 % (11.0-16.0); White Blood Count 8.5 X10*3/uL (4.8-10.8)
[2022-04-04 06:45] LABS: Creatinine Clr Calc Pharmacy 67.2; Estimated Glomerular Filt Rate > 60
[2022-04-04] MEDS: Atorvastatin Calcium 40 MG TABLET PO (07:15)
[2022-04-04] MEDS: 0.9 % Sodium Chloride Flush 3 ML SYRINGE IVFLUSH (07:15)
[2022-04-04] MEDS: Escitalopram Oxalate 5 MG TABLET PO (07:15)
[2022-04-04 07:46] VITALS: BP 111/57; PULSE 72; RESP 16; TEMP 36.4; O2SAT 95
--- NOTE | 2022-04-04 08:52 | HO.MIDLINE ---
PICC Line Insertion Removal of PICC Line 1. Date: 04/04/2022 2. Reason removed: No longer needed, order 3. Inserted Length: 37 cm 4. Removed Lenghth: 37 cm 5. A dressing was placed over the site upon removal. No edema or bleeding at the site. Patient denied any discomfort.
--- NOTE | 2022-04-04 09:14 | PM.PNGS ---
Subjective Subjective Date of Service: 04/04/22 Interval history: no new complaints denies pain Physical Exam Vital Signs: Vital Signs: Last Vital Signs Temp 97.5 F 04/04/22 07:46 Pulse 72 04/04/22 07:46 Resp 16 04/04/22 07:46 BP 111/57 L 04/04/22 07:46 Pulse Ox 95 04/04/22 07:46 O2 Del Method 04/04/22 07:46 O2 Flow Rate 2.0 04/02/22 15:16 BMI result Body Mass Index 26.6 Const: General: comfortable and no acute distress Resp: Effort & Inspection: normal respiratory effort Extrem: Other: changed his dressings - incision looks good pain, edges viable, sutures intact Objective Data Active Medications Acetaminophen (Acetaminophen 325 Mg Tablet) 650 mg PO Q6H PRN PRN Reason: Pain, Mild (Pain Scale 1-3) Albuterol Sulfate (Albuterol Sulfate (0.083%) 2.5 Mg/3 Ml Vial.Neb) 2.5 mg INHALE ONCE PRN PRN Reason: Wheezing Albuterol/Ipratropium (Albuterol/Iprat 2.5/0.5mg 3 Ml Ampul.Neb) 3 ml INHALE RQ4H PRN PRN Reason: Shortness of Breath/Wheezing Atorvastatin Calcium (Atorvastatin Calcium 40 Mg Tablet) 40 mg PO DAILY [facility] Last Admin: 04/04/22 07:15 Dose: 40 mg Documented By: ROBERT Enoxaparin Sodium (Enoxaparin Sodium 40 Mg/0.4 Ml Syringe) 40 mg SUBCUT Q24H [facility] Last Admin: 04/03/22 21:46 Dose: 40 mg Documented By: JOSE Escitalopram Oxalate (Escitalopram Oxalate 5 Mg Tablet) 5 mg PO DAILY [facility] Last Admin: 04/04/22 07:15 Dose: 5 mg Documented By: ROBERT Hydromorphone HCl (Hydromorphone Hcl 1 Mg/Ml Syringe) 0.5 mg IVPUSH Q4H PRN; Protocol PRN Reason: Pain, Severe (Pain Scale 7-10) Loratadine (Loratadine 10 Mg Tablet) 10 mg PO DAILY PRN PRN Reason: Allergy Symptoms Melatonin (Melatonin 3 Mg Tablet) 6 mg PO BEDTIME PRN PRN Reason: Insomnia Oxycodone HCl (Oxycodone Hcl Immed Release 5 Mg Tablet) 5 mg PO Q4H PRN PRN Reason: Pain, Moderate (Pain Scale 4-6 Pharmacy Consult (Consult Rx Vancomycin Dosing) 1 each MISCELLANE DAILY PRN PRN Reason: Consult order Senna (Sennosides 8.6 Mg Tablet) 17.2 mg PO BEDTIME PRN PRN Reason: Constipation Sodium Chloride (0.9 % Sodium Chloride Flush 3 Ml Syringe) 3 ml IVFLUSH QSHIFT [facility] Last Admin: 04/04/22 07:15 Dose: 3 ml Documented By: ROBERT Labs CBC & Chem 7: 04/04/22 05:34 04/04/22 05:34 Labs: Laboratory Results - last 24 hr 04/03/22 04/04/22 04/04/22 13:58 05:34 05:34 MCV 91.8 MCH 28.9 MCHC 31.5 RDW 13.8 Plt Count 346 MPV 8.8 L Absolute Nucleated RBC 0.000 Nucleated RBC % (auto) 0.0 Estim Creat Clear Calc 67.2 Estimated GFR > 60 Vancomycin Trough 6.0 L Procedures Date of Service Date of Service: 04/04/22 Progress Note: A&P Assessment and plan (1) Osteomyelitis: Status: Acute Assessment and Plan: status post toe amp, 5th toe right dressings changed incision looks clean, healing applied dry dressings, wrapped the foot with Kerlix and Melchor continue daily wound care with dry dressings as above no weight-bearing on right foot Will see in the office for removal sutures in about 2-3 weeks Time Spent With Patient Time: Total time spent is greater than 50% in coordination of care (as documented) at patient's floor/unit and/or counseling patient: Quality Stroke Does the patient have a stroke diagnosis?: No VTE Prior VTE?: No VTE Risk Level:: Medical - moderate - high VTE Device Contraindication: Treatment Not Indicated VTE Drug Contraindication: N/A - Med Ordered
--- NOTE | 2022-04-04 09:56 | W.MHC.F2F ---
Service Date Service Date: 04/04/22 Encounter Date of encounter: 04/04/22 Reasons for Services Signs and symptoms assessed: Needs residential for dressing changes daily with dry dressings, wrap with Kerlix and KUMAR No weight bearing on right foot Reason for residential: wound care MD Overseeing Care: Harman Connolly Homebound: Leaving the home is medically contraindicated at this time without the asist of a device and/or another person due th the listed conditions above and below. Reason homebound: unsteady gait / fall risk Certification: Based on the above findings, I certify that this patient is confined to the home and needs intermittent residential care, physical therapy and/or speech therapy, or continues to need occupational therapy. The patient is under my care, and I have initiated the establishment of the plan of care. The patient will be followed by a physician who will periodically review the plan of care.
--- NOTE | 2022-04-04 10:13 | PM.DS ---
DS: Providers Provider Date of Service: 04/04/22 Date of admission: 03/31/22 20:51 Date of discharge: 04/04/22 Primary care physician: Harman Connolly MD Consults: 03/31/22 20:51 Consult to Infectious Diseases Routine Consulting Provider: Reina Hooper Reason for consultation: Osteomyelitis-worsening wound; 03/31/22 20:58 Consult to General Surgery Routine Consulting Provider: Ike Ernst Reason for consultation: Right foot wound/worsening osteomyelitis Attending physician on discharge: Billy Terrell Discharging clinician: Mayte Mera DS: Diagnosis Discharge Diagnosis (1) Osteomyelitis: Status: Acute DS: Summary Hospital Course Hospital Course: From H&P on day of admission 82-year-old male with a past medical history of hypertension, hyperlipidemia, COPD, anemia, vitamin B12 deficiency, chronic right foot ulcer/osteomyelitis; discharged on 03/07/2022 with a PICC line for 6 weeks of antibiotics.? Presented back today with a chief complaint of worsening right foot wound. Patient reported that he was on daptomycin as outpatient, receiving via PICC line.? But he could not tolerate daptomycin and subsequently changed to ceftriaxone by Dr. Hooper; patient mentioned he also saw Dr. Ernst in the surgery clinic.? Today when he went to the wound clinic he was told that his wound is worsening and Jw to go to the ER for further evaluation.? Patient mentioned that he has been complaint with his medications.? Denies any fevers and chills.? Denies any chest pain palpitations lightheadedness or dizziness.? Denies any GI symptoms.? Review of all other systems is negative except mentioned above ER course: Per ER team patient x-ray showed new bony destruction; patient continued on antibiotics.? Admitted for further management. Right 5th toe osteomyelitis patient was discharged March 07 with 6 weeks of daptomycin for osteomyelitis of the right foot. At that time he had declined toe amputation. he was unable to tolerate daptomycin and antibiotics were changed to ceftriaxone. In follow-up he was noted to have worsening ulcer and was sent to the hospital for evaluation. He was initially started on broad-spectrum antibiotics, was seen by infectious diseases who recommended amputation and to stop antibiotics. He was seen by surgery and agreed to right 5th toe amputation which occurred on April 02. He has had a uneventful postoperative course. Pain has been well controlled. The patient's is comfortable changing his dressings on a daily basis and is recommended to change dressings daily and with dry dressings, Kerlix and Melchor bandage. He should call to schedule a follow-up appointment with surgery in 2-3 weeks for suture removal. PICC line placed on previous hospitalization was removed prior to discharge Time Spent with Patient Time attestation: Total time spent providing and/or coordinating discharge services: Discharge coordination time: Greater than 30 minutes Quality: Safe Use of Opioids Does Pt have an Active Cancer Diagnosis on the Problem List?: No Quality: Stroke Does the patient have a stroke diagnosis?: No Physical Exam Vital Signs: Vital Signs: Last Vital Signs Temp 97.5 F 04/04/22 07:46 Pulse 72 04/04/22 07:46 Resp 16 04/04/22 07:46 BP 111/57 L 04/04/22 07:46 Pulse Ox 95 04/04/22 07:46 O2 Del Method 04/04/22 07:46 O2 Flow Rate 2.0 04/02/22 15:16 BMI result Body Mass Index 26.6 Const: General: cooperative, comfortable, no acute distress, alert and awake Nutritional Appearance: average body habitus Orientation/consciousness: patient oriented x3 Resp: Effort & Inspection: normal respiratory effort and able to speak in complete sentences Auscultation: clear to auscultation bilaterally Cardio: Rate: regular rate Heart sounds: S1 normal heart sound present and S2 normal heart sound present GI: Inspection: No distended Palpation (GI): Soft to palpation and nontender Neuro: General: patient oriented x3 Extrem: Other: right foot wrapped in c/d/i dressing DS: Data Data Completed and Pending Completed studies during hospitalization [Text1]: Procedures Insertion of Infusion Device into Superior Vena Cava, Percutaneous Approach (03/03/22) Pending studies at discharge: Pending at discharge 04/02/22 13:36 Surgical [PTH] Routine Labs on day of discharge: Laboratory Results - last 24 hr 04/03/22 04/04/22 04/04/22 13:58 05:34 05:34 WBC 8.5 RBC 2.80 L Hgb 8.1 L Hct 25.7 L MCV 91.8 MCH 28.9 MCHC 31.5 RDW 13.8 Plt Count 346 MPV 8.8 L Absolute Nucleated RBC 0.000 Nucleated RBC % (auto) 0.0 Creatinine 0.79 Estim Creat Clear Calc 67.2 Estimated GFR > 60 Vancomycin Trough 6.0 L Preliminary micro results at discharge 03/31/22 20:08 Blood Culture - Preliminary Blood - Venous No growth after 48 hours. 03/31/22 20:00 Blood Culture - Preliminary Blood - Venous No growth after 48 hours. Discharge Plan Discharge Patient Disposition: Home, Self-Care Discharge Diagnosis: Osteomyelitis s/p amputation of right 5th toe Referrals: Ike Ernst MD [Physician] - 2 Weeks Po,Harman Ro MD [Primary Care Provider] - 1 Week Discharge Medications: New oxycodone 5 mg Tablet 5 mg PO Q6H PRN (Reason: Pain, Moderate (Pain Scale 4-6) Qty: 20 0RF Rx Instructions: Partial Fill upon patient request. Continued citalopram 10 mg tablet 10 mg PO DAILY Qty: 90 1RF loratadine 10 mg tablet 10 mg PO DAILY PRN (Reason: Allergy Symptoms) budesonide-formoterol [Symbicort] 160-4.5 mcg/actuation HFA aerosol inhaler 2 puff inhalation BID albuterol sulfate [ProAir HFA] 90 mcg/actuation HFA aerosol inhaler 2 puff inhalation Q4H PRN (Reason: Shortness Of Breath) atorvastatin 40 mg tablet 40 mg PO DAILY 90 Days Qty: 90 3RF Hold Instructions: Hold for 6 weeks while taking daptomycin Spiriva Respimat 1.25 mcg/actuation mist 2 puff inhalation DAILY Qty: 3 3RF Discharge Orders: Discharge Order (Routine); Ordered 04/04/22 Ordered By: Mayte Mera Diet: advance to usual diet Activity on Discharge: NWB Right Stand Alone Forms: Patient Portal Discharge page Care Plan Goals: see below Health Concerns: Osteomyelitis of right 5th toe Plan of Treatment: Osteomyelitis status post amputation the right 5th Recommend daily dressing changes with dry dressings, wrapped in Kerlix and Melchor wrap no antibiotics indicated at this time no weight-bearing on the right foot call to schedule follow-up appointment with Dr. Ernst in 2-3 weeks for suture removal Assessment: see discharge summary Discharge Date/Time: 04/04/22 13:19
--- NOTE | 2022-04-04 11:11 | MHC.CM.PN ---
nurse case hardener note electronic medical record reviewed along with case discssed with staff nurse and the hosptilaist. met wi5th patient surgeron changed the dressing see documentaiton (osteomyelitis s/p toe amp 5th toe rt dressing changed, applied dry dressing, wrpped the foot with ker;ix and kofi continue daily wound care with dry dresisng as above, non wt bearing on rt foot ) discharge plan home with his (patient has hne insurance , no vna availability sec to shortages in staffing() spoke with juan david and hospitlaist as well as patient ans his yesterdayand in person today , she is willing to change the dressing as she has been changing the dresing before and knows to call the surgeon for any concerns or questions f/u in office 2-3 weeks for suture removal transortation family pcp dr matthew surgical f/u 2-3 weeks for suture removal spoke with staff nurse and she will revie with pt and the dresisng orders as written by the surgeon and are aware that theere is no vna
== END 2022-04-04 13:19 | disposition home or self-care (01) | DRG 314 ==
LOC: HO.ED 21:00 → HO.EDOVER 21:10 → HO.S3 04-01 00:09
PROVIDERS: Student in an Organized Health Care Education/Training Program; Surgery; Admitting Provider Hospitalist; Emergency Provider Emergency Medicine; PCP Internal Medicine; Visit Provider Physician Assistant Medical
PROC: 0Y6X0Z0 Detachment at Right 5th Toe, Complete, Open Approach (ICD-10-PCS; principal; 2022-04-02 13:00)
DX: E11.69 Type 2 diabetes mellitus with other specified complication (principal); L97.519 Non-pressure chronic ulcer of other part of right foot with unspecified severity; M86.471 Chronic osteomyelitis with draining sinus, right ankle and foot; E11.621 Type 2 diabetes mellitus with foot ulcer; J44.9 Chronic obstructive pulmonary disease, unspecified; E78.00 Pure hypercholesterolemia, unspecified; Z20.822 Contact with and (suspected) exposure to COVID-19; Z87.891 Personal history of nicotine dependence; Z79.899 Other long term (current) drug therapy
CPT/HCPCS: 36415; 36573; 73620; 80048; 80076; 80202; 82565; 83605; 85025; 85027; 85652; 86140; 87040; 87635; 88305; 88311; 96365; 97162; 99285; J0696; J1650; J2405; J2543; J3010; J3370